=== PATIENT | female | born 1955 | race African-American/Black ===

== ENCOUNTER 2020-01-22 09:33 | Outpatient (CLI) | payer MEDICARE, SELFPAY ==
--- NOTE | ~2020-01-22 | MM_ITS ---
EXAMINATION: MM screening [facility] BI w [facility] HISTORY: Screening mammogram TECHNIQUE: Craniocaudal and mediolateral oblique 3-D tomosynthesis images were obtained and synthetic 2-D images were generated. CAD analysis was submitted and interpreted. COMPARISON: 01/19/2019, 01/12/2018, 12/26/2009 BREAST PARENCHYMAL COMPOSITION: There are scattered areas of fibroglandular density. FINDINGS: There is no evidence of suspicious mass, calcification, or architectural distortion to sugg est malignancy in either breast. There has been no suspicious interval change. IMPRESSION: 1. No mammographic evidence of malignancy. 2. Recommend routine screening mammography in one year. BI-RADS Category 1: Negative Reviewed, dictated and finalized at location A. ANALYSIS ENGINEERING TECHNICIAN
== END 2020-01-22 09:34 | disposition home or self-care (01) ==
PROVIDERS: PCP Obstetrics & Gynecology; Visit Provider Obstetrics & Gynecology
DX: Z12.31 Encounter for screening mammogram for malignant neoplasm of breast (principal)
CPT/HCPCS: 77063; 77067

== ENCOUNTER 2020-02-19 10:27 | Outpatient (CLI) | payer MEDICARE, SELFPAY ==
--- NOTE | ~2020-02-19 | CT_ITS ---
EXAMINATION:CT chest high resolution wo [place] DATE: 02/19/2020 10:54 INDICATION: Other disorders of lung. Asthma. TECHNIQUE: Computed tomography (CT) of the chest was performed without intravenous contrast. Automate d exposure control and iterative reconstruction technique were employed. The dose-length product (DLP ) was 154.00 mGy-cm. COMPARISON: CT abdomen 02/19/2013 FINDINGS: There is mild atelectasis in the inferior lungs. There is mild bronchiectasis in medial seg ment right middle lobe and laterobasal segment right lower lobe. No honeycombing. No pleural effusion . The heart size is normal. No pericardial effusion. There is a small sliding hiatal hernia. There is mild thoracic spondylosis. There is mild chronic anterior wedging of T7 vertebral body. IMPRESSION: 1. Mild bronchiectasis in the inferior lungs. 2. Small sliding hiatal hernia. Reviewed, dictated and finalized at location A. ADVISOR
== END 2020-02-19 10:28 | disposition home or self-care (01) ==
LOC: ANHIMG 10:38
PROVIDERS: Visit Provider Nurse Practitioner Family
DX: R05 Cough (principal); J98.4 Other disorders of lung; R06.02 Shortness of breath; J84.10 Pulmonary fibrosis, unspecified; Z86.19 Personal history of other infectious and parasitic diseases; K44.9 Diaphragmatic hernia without obstruction or gangrene; J47.9 Bronchiectasis, uncomplicated; J98.11 Atelectasis; M47.814 Spondylosis without myelopathy or radiculopathy, thoracic region
CPT/HCPCS: 71250

== ENCOUNTER 2020-09-25 07:51 | Outpatient (CLI) | payer MEDICARE, SELFPAY ==
--- NOTE | ~2020-09-25 | DEXA_ITS ---
Bone Density Report Name: Donald Arroyo Age: 65 Sex: Female Ethnicity: Black Date of : 1955 Indication: postmenopausal; asthma or emphysema; hysterectomy; Referring Provider: Beto Gee Study: Bone densitometry was performed. Exam Date: September 25, 2020 Accession number: [id number] Bone Density: Region BMD T-score Z-score Classification AP Spine (L1-L4) 0.987 -0.5 0.6 Normal Femoral Neck (Left) 0.707 -1.3 -0.4 Osteopenia Total Hip (Left) 0.783 -1.3 -0.5 Osteopenia Total Hip Bilateral Avg 0.777 -1.4 -0.6 Osteopenia Femoral Neck (Right) 0.650 -1.8 -0.8 Osteopenia Total Hip (Right) 0.770 -1.4 -0.6 Osteopenia World Health Organization criteria for BMD impression classify patients as: Normal (T-score at or above -1.0), Osteopenia (T-score between -1.0 and -2.5), or Osteoporosis (T-score at or below -2.5). 10-year Fracture Risk(1): Major Osteoporotic Fracture 4.2% Hip Fracture 0.6% Reported Risk Factors: [place] (Black), Neck BMD=0.650, BMI=34.3 (1) FRAX(R) Version 3.08. Fracture probability calculated for an untreated patient. Fracture probability may be lower if the patient has received treatment. Clinical Information Provided by Patient: Has used the following medications: Vitamin D Has the following medical conditions: Asthma or Emphysema, Hysterectomy Patient maximum height was 64 Menopause Age: 43 Onset of menses at age 10 Number of children 2 Impression: The patient has low bone mass, based on the Right Femoral Neck T-score. The patient has an estimated ten-year risk of hip fracture of 0.6% and an estimated ten-year risk of major fracture of 4.2%, based on the WHO FRAX algorithm. Discussion: BONE DENSITY IS LOW AT ONE OR MORE SKELETAL SITES. This patient's lowest T-score is low at one or more skeletal sites. It meets the World Health Organization's (WHO) criteria for ?low bone mass? (T-score between -1.0 and -2.5). The patient's 10-year risk of fracture as calculated by FRAX is less than the threshold where pharmacological therapy is recommended by the National Osteoporosis Foundation (NOF). However, all treatment decisions require clinical judgment and consideration of individual patient factors, including patient preferences, comorbidities, previous drug use, risk factors not captured in the FRAX model (e.g., frailty, falls, vitamin D deficiency, increased bone turnover, interval significant decline in bone density) and possible under or overestimation of fracture risk by FRAX. The patient should follow a healthful lifestyle (good nutrition with adequate calcium and vitamin D, and appropriate weight-bearing exercise). Follow-Up: Consider repeating this study in 2 to 3 years to reassess this patient's status, or sooner if there is some new clinical indication. Reported by: [facility] on 0
== END 2020-09-25 07:52 | disposition home or self-care (01) ==
LOC: ANHIMG 07:53
PROVIDERS: PCP Family Medicine; Visit Provider Obstetrics & Gynecology
DX: Z13.820 Encounter for screening for osteoporosis (principal); Z78.0 Asymptomatic menopausal state; M85.852 Other specified disorders of bone density and structure, left thigh; M85.851 Other specified disorders of bone density and structure, right thigh
CPT/HCPCS: 77080

== ENCOUNTER 2021-02-27 08:23 | Outpatient (CLI) | payer MEDICARE, SELFPAY ==
--- NOTE | ~2021-02-27 | MM_ITS ---
EXAMINATION: MM screening [facility] BI w [facility] HISTORY: Screening TECHNIQUE: Craniocaudal and mediolateral oblique 3-D tomosynthesis images were obtained and synthetic 2-D images were generated. CAD analysis was submitted and interpreted. COMPARISON: Comparison to multiple prior studies sequentially, with oldest reviewed study dated 06/2017. BREAST PARENCHYMAL COMPOSITION: There are scattered areas of fibroglandular density. FINDINGS: There is no evidence of suspicious mass, calcification, or architectural distortion to sugg est malignancy in either breast. There has been no suspicious interval change. IMPRESSION: 1. No mammographic evidence of malignancy. 2. Recommend routine screening mammography in one year. BI-RADS Category 1: Negative Reviewed, dictated and finalized at location A. TABLE ENGINEER
== END 2021-02-27 08:24 | disposition home or self-care (01) ==
LOC: ANHIMG 08:25
PROVIDERS: PCP Family Medicine; Visit Provider Obstetrics & Gynecology
DX: Z12.31 Encounter for screening mammogram for malignant neoplasm of breast (principal)
CPT/HCPCS: 77063; 77067

== ENCOUNTER 2024-10-13 00:10 | Emergency (ER) | payer MEDICARE, SELFPAY ==
--- OUTSIDE RECORDS SUMMARY | 2023-04-26 03:00 | XMS_ITS ---
Author Organization [facility] Samantha curiel Billing Info Address [address] [place] [address] Care Team Providers Care Pantomimist Name Role Phone MD MOLLY AMBROSE Primary Care Provider ALEJANDRO [place] [phone] REASON FOR VISIT [email or web address] Encounters Encounter Location Date Provider Diagnosis [id number] [address] [place], [place] [id number] 04/26/2023 ALEJANDRO HORTA Plan Of Treatment No Information Progress Notes * Donald WALSH EDOB:1955 (69 yo F)Acc No.[id number]:04/26/2023 PROGRESS NOTE Patient: Donald HARRISON Provider: Remington Horta MD :1955 A ge:68 Y S ex:Female Date:04/26/2023 C HN#:[id number] Address:[address] [place] [address], [address] Pcp:MD MOLLY AMBROSE Subjective: * Chief Complaints: * 1 . [email or web address]@[email or web address]. * Medical History: Objective: * Vitals: Assessment: Plan: * Treatment: * * This progress note has not b een verified nor is it considered complete until locked and signed by the provider. Sign off status: Pending * Provider: Remington Horta MD Date: 0 04/26/2023 Generated for Printi ng/Faxing/eTransmitting on: 0 10/13/2024 01:12 AM EDT
--- NOTE | ~2024-10-13 | XR_ITS ---
EXAM/PROCEDURE: XR chest 2V - 10/13/2024 0:30 CDT HISTORY: 69 years old Female with sob TECHNIQUE: Two view(s) of the chest. COMPARISON: None available. FINDINGS: LUNGS/ PLEURA: No focal consolidation. No appreciable pneumothorax or large pleural effusion. HEART/ MEDIASTINUM: Heart appears normal in size. BONES: No acute osseous abnormality. OTHER: Visualized upper abdomen is unremarkable. IMPRESSION: No acute process. Reviewed, dictated and finalized at location N. IMPRESSION: No acute process.
[2024-10-13 00:11] VITALS: BP 143/66; PULSE 84; RESP 18; TEMP 36.8; O2SAT 98
--- OUTSIDE RECORDS SUMMARY | 2024-10-13 00:12 | XMS_ITS | Encounter Summary ---
Author Organization [facility] Address [address] [place] [address] Care Team Providers Care Foundry Worker Name Role Phone Laurence Castillo DO Primary Care Provider [phone] Nisha Castro MD Primary Care Provider + Encounter Details Date Type Department Care Team (Late st Contact Info) Description 06/19/2024 MyChart Message Enc [facility] Mult[facility] - [place] [address] [place] [address] Laurence Castillo DO [address] [place] [address] Referrals Social History Tobacco Use Types Packs/Day Years Used Date Smoking Tobacco: Former Cigarettes 1 15 Q uit: 1996 Smokeless Tobacco: Never Comments:Former, Quit Alcohol Use Standard Drinks/Week Comments Yes 0 (1 standard drink = 0.6 oz pur e alcohol) Occasionally PHQ-2 Answer Date Recorded Patient Health Questionnaire-2 Score 0 03/03/2024 Comments No Sex and Gender Information Value Date Recorded Sex Assigned at Female 02/22/2024 11:05 AM BUDGET COUNSELOR Legal Sex Female 8:04 PM CDT Gender Identity Female 02/04/2021 10:02 AM BUDGET COUNSELOR Sexual Orientation Not on file documented as of this encounter Plan of Treatment Upcoming Encounters Date Type Department Care Team (Late st Contact Info) Description 01/09/2025 8:10 AM BUDGET COUNSELOR [facility] - [place] [address] [place] [address] Nisha Castro MD [address] [place] [address] documented as of this encounter Visit Diagnoses Not on filedocumented in this encounter Additional Health Concerns Assessment Noted Time PHQ-9 Depression Total Score: 0 03/03/19 9:05 AM BUDGET COUNSELOR documented as of this encounter Care Teams Foundry Worker Relationship Specialty Start Date End Date Laurence Castillo DO [address] [place] [address] PCP - General FAMILY PRACTICE 02/22/24 10/01/24 Nisha Castro MD [address] [place] [address] PCP - General FAMILY PRACTICE 10/02/24 documented as of this encounter
--- OUTSIDE RECORDS SUMMARY | 2024-10-13 00:12 | XMS_ITS | Encounter Summary ---
Author Organization [facility] Address [address] [place] [address] Care Team Providers Care Knot Picker Cloth Name Role Phone Laurence Castillo DO Primary Care Provider [phone] Nisha Castro MD Primary Care Provider + Encounter Details Date Type Department Care Team (Late st Contact Info) Description 04/10/2024 MyChart Message Enc [facility] Multispecialty Care - [place] [address] [place] [address] Laurence Castillo DO [address] [place], [place] [id number] Coughing Social History Tobacco Use Types Packs/Day Years [...] Sex Assigned at Female 02/22/2024 11:05 AM DEPUTY SHERIFF/INVESTIGATOR Legal Sex Female 8:04 PM CDT Gender Identity Female 02/04/2021 10:02 AM DEPUTY SHERIFF/INVESTIGATOR Sexual Orientation Not on file documented as of this encounter Plan of Treatment Upcoming Encounters Date Type Department Care Team (Late st Contact Info) Description 01/09/2025 8:10 AM DEPUTY SHERIFF/INVESTIGATOR Office Visit [facility] Family Medicine - [place] [address] [place], [place] [address] Nisha Castro MD [address] [place] [address] documented as of this encounter Visit Diagnoses Not on filedocumented in this encounter Additional Health Concerns Assessment Noted Time PHQ-9 Depression Total Score: 0 03/03/19 9:05 AM DEPUTY SHERIFF/INVESTIGATOR documented as of this encounter Care Teams Knot Picker Cloth Relationship Specialty Start Date End Date Laurence Castillo DO [address] [place] [address] PCP - General FAMILY PRACTICE 02/22/24 10/01/24 Nisha Castro MD [address] [place] [address] PCP - General FAMILY PRACTICE 10/02/24 documented as of this encounter
--- OUTSIDE RECORDS SUMMARY | 2024-10-13 00:12 | XMS_ITS | Patient Health Record ---
Author Organization [facility] Address [address] [address] Care Team Providers Care Byproducts Extractor Name Role Phone Oskar BALDERAS, Cynthia Primary Care Provider Rubén Lucio MD, [facility] [phone] Allergies No Known Allergies Reason For Referral No Information Medications Medication SIG (Take, Route, Fr equency, Duration) Notes Start Date End Date Status Lisinopril 10/28/2021 Unknown Advair HFA Unknown Omeprazole 10/28/2021 Unknown Vitamin C Unknown ZyrTEC Unknown Calcium Unknown Vitamin D3 Unknown hydroCHLOROthiazide 10/28/2021 Unknown Social History Tobacco Use: Social History Observation Description Date Details (start date - stop date) Former Smoker NA - NA Social History Drugs/Alcohol(Archived) Social Info Question Answer Notes Alcohol Screen (Audit-C) Did you have a drink containing alcohol in the past year? No Points 0 Interpretation Negative Tobacco Use: Social Info Question Answer Notes Tobacco Use/Smoking (Archived) Are you a? former smo ker How long has it been since you last smoked? > 10 years Additional Findings: Tobacco User Modera te cigarette smoker (10-19 cigs/day) Additional Findings: Tobacco Non-User Current no n-smoker Problems Problem Type SNOMED Code ICD Code Onset Dates Problem Status W/U Status Risk Notes Problem Gastroesophageal reflux disease without esophagitis (216774997) Gastroesophageal reflux disease without esophagitis (K21.9) Active confirmed Problem Dysphagia (76202801) Dysphagia, unspecified type (R13.10) Active confirmed Problem History of polyp of colon (situation) (630130458) Hx of colonic polyps (Z86.010) Active confirmed Plan Of Treatment Future Test Test Name Order Date EGD 12/23/2021 Insurance Providers Payer Name Payer Address Payer Phone Subscriber Number Group Number Insured Name Patient Relationship to Insured Coverage Start Date Coverage End Date AARP MEDICARE COMPLETE CHOICE [facility] [address] [address] [place], [place] [id number] Donald Arroyo Self - patient is the insured Medical (General) History Medical History History ICD Code bp colon polys arthristis asthma gerd Surgical History Surgery Date(Month/Year) Knee surgery 03/2017 breast biopsy foot surgery Hysterectomy
--- OUTSIDE RECORDS SUMMARY | 2024-10-13 00:12 | XMS_ITS | Clinical Summary ---
Author Organization [facility] Address [facility] [place] [address] Care Team Providers Care Automobile Drivers Name Role Phone Mary Garnica MD Primary Care Provi reshma Allergies No known active allergies Medications No known medications Active Problems Problem Noted Date Diagnosed Date Left hand pain 02/21/2021 Ganglion cyst 02/21/2021 Surgical History Surgery Date Site/Laterality Comments FOOT SURGERY KNEE ARTHROSCOPY BREAST SURGERY HYSTERECTOMY Medical History Medical History Date Comments Asthma Gastric reflux Hiatal hernia Hypercholesteremia Hypertension Osteoarthritis Rheumatoid arthritis (HCC) Peptic ulceration Social History Tobacco Use Types Packs/Day Years Used Date Smoking Tobacco: Former Cigarettes Q uit: 1995 Personal Safety Answer Date Recorded Getting School Help Needed Not on file 04/23 Comments Unknown Sex and Gender Information Value Date Recorded Sex Assigned at Not on file Legal Sex Female 3:46 PM AUTOMOBILE RACER Gender Identity Female 03/10/2021 6:25 AM AUTOMOBILE RACER Sexual Orientation Not on file Obstetrics History Last Filed Vital Signs Vital Sign Reading Time Taken Comments Blood Pressure - - Pulse - - Temperature - - Respiratory Rate - - Oxygen Saturation - - Inhaled Oxygen Concentration - - Weight 91.9 kg (202 lb 9.6 oz) 07/10/2020 10:23 AM CDT Height 162.6 cm (5' 4) 07/10/2020 10:23 AM CDT Body Mass Index 34.78 07/10/2020 10:23 AM CDT Plan of Treatment Not on file Insurance [facility] H[facility] REF [facility] HMO REF [place] [id number] Care Teams Automobile Drivers Relationship Specialty Start Date End Date Mary Garnica MD PCP - General 05/24/20
--- OUTSIDE RECORDS SUMMARY | 2024-10-13 00:12 | XMS_ITS | Clinical Summary ---
Author Organization [facility] [place] Address [address] [place] [address] Care Team Providers Care Manpower Development Specialist Manager Name Role Phone Araceli Shane MD Unavailable Marcie Pizano APRN-[facility] Primary Care Provider [phone] Source Comments [facility],non-owned Affiliates and Associated Physician Practices is amultiple site organization consisting of ambulatory clinics and hospital sitesin [place], [place], [place] and [place]. This disclosure is being madepursuant to the Care Everywhere program and may not contain all information available regarding this patient. Last updated 17.[facility] Allergies No known active allergies Medications * Be aware that medications may not be up to date on this document. Alwaysverify current medications with the patient. Cholecalciferol (VITAMIN D) 2000 UNITS CAPS capsule Take 1 (one) capsule by mouth once daily Active Calcium & Magnesium Carbonates 311-232 MG Active vitamin C (ASCORBIC ACID) 1000 MG tablet Take 1 (one) tablet by mouth once daily Active cyclobenzaprine (FLEXERIL) 10 MG tablet Take 1 tablet by mouth 3 times daily as needed for Muscle Spasms 90 tablet 0 Active Additional Information Patient not taking.Reported on 09/14/2023 Zinc 50 MG tablet Take 1 (one) tablet by mouth once daily Active albuterol HFA (PROVENTIL; VENTOLIN; PROAIR) 108 (90 Base) MCG/ACT inhaler 1 Active lisinopril-hydr oCHLOROthiazide (Prinzide; Zestoretic) 20-25 MG tablet TAKE 1 TABLET BY MOUTH ONCE DAILY 90 tablet 3 2 Active atorvastatin (Lipitor) 10 MG tablet Take 1 (one) tablet by mouth once daily Active zolpidem (Ambien) 5 MG tablet Take 1 (one) tablet by mouth once daily Active hydroxychloroqu ine (Plaquenil) 200 MG tabletIndicatio ns:Rheumatoid arthritis of multiple sites without rheumatoid factor (HCC) Take 1 (one) tablet by mouth 2 times daily 180 tablet 1 4 Active fluticasone propionate (Flonase) 50 MCG/ACT nasal spray Stewart 1 (one) spray into the nose every 24 hours as needed Active ibuprofen (Motrin) 200 MG tablet Take 1 (one) tablet by mouth every 6 hours as needed Active levocetirizine (Xyzal) 5 MG tablet Take 1 (one) tablet by mouth every 24 hours as needed Active Active Problems Problem Noted Date Diagnosed Date Peripheral vascular disease, unspecified 020 Colon polyp 08/10/2018 Impaired fasting glucose 03/17/2018 Overview (03/17/2018): Hemoglobin A1C 5.9 Body mass index (bmi) 36.0-36.9, adult 8 Esophageal stricture 02/05/2017 Neck mass 08/29/2015 Abnormal antinuclear antibody titer 12/03/2010 Overview (08/19/2011): Saw Dr. Christina 11/2007 for trace (+) [place]. Repeat was (-). Had minimal myalgias. Treated with low dose prednisone. Back pain 11/06/2010 Neck pain 03/05/2010 Overview (03/05/2010): End plate degenerative changes C3,4,5, and 6, Intervertebral disc space narrowing C5-C6. Ordering physical therapy. Esophageal reflux 04/04/2008 Overview (03/13/2013): Sees GI and is on prilosec. Had chest pain and negative thallium stress at [facility] in [place]. Essential hypertension 04/04/2008 Overview (11/08/2014): Abnormal mammogram 04/04/2008 Asthma 04/04/2008 Osteopenia 04/04/2008 Resolved Problems Problem Noted Date Diagnosed Date Resolved Date Encntr for hosiery bagger exam (general ) (routine) w/o abn findings 04/06/2019 11/27/2019 Status post foot joint surgery 03/07/2019 06/10/2021 Encounter for screening for malignant neoplasm of colon 04/26/2017 11/27/2019 Vaginal discharge 04/26/2017 11/27/2019 Urinary incontinence 04/26/2017 020 Left arm pain 03/05/2010 10/05/2017 Urinary frequency 03/05/2009 10/05/2017 Hematuria 02/28/2009 10/05/2017 Overview (02/28/2009): Dr Kirkpatrick 2007 Post-menopause on HRT (hormo ne replacement therapy) 06/28/2008 06/10/2021 FH: breast cancer 06/28/2008 10/05/2017 Arthralgia 10/26/2017 Immunizations Immunization Administration Dates Next Due qualifyor primary monoval ent 12+ yr 0.3mL Purple cap 05/17/2021 INFLUENZA VACCINE, HIGH-DOSE , QUADR. (FLUZONE HIGH-DOSE QUADRIVALENT; 65Y+), 0.7 ML (HD-IIV4) 11/05/2020,11/10/2019,12/13/2018 INFLUENZA VACCINE, QUADR. (F LUZONE; FLULAVAL; FLUARIX; AFLURIA QUADRIVALENT; 6MO+), 0.5 ML (IIV4) 10/26/2017,02/25/2017,01/13/2016 PNEUMOCOCCAL PPSV23 11/27/2019,11/09/2003,2002 Pneumococcal Pcv13 Conj 09/13/2018 TDAP (7yrs+) 08/09/2019 Zoster Hzv Vacc Recombinant Inj Im 03/03/2021, Family History Medical History Relation Name Comments Asthma Father Cancer - Renal Father Diabetes Father Hypertension Father Asthma Maternal Grandmother Arthritis - Rheumatoid Sister Lupus Sister Relation Name Status Comments Father Alive htn, DM Maternal Grandmother Mother (Age 63) blood clot Sister Social History Tobacco Use Types Packs/Day Years Used Date Smoking Tobacco: Former Cigarettes 1 12 0 04/11/1984 - 04/11/1996 Smokeless Tobacco: Never Alcohol Use Standard Drinks/Week Comments Yes 0 (1 standard drink = 0.6 oz pur e alcohol) social PHQ-2 Answer Date Recorded Patient Health Questionnaire-2 Score 0 05/16/2024 Comments No Sex and Gender Information Value Date Recorded Sex Assigned at Not on file Legal Sex Female 6:55 AM SKEIN BLEACHER Gender Identity Not on file Sexual Orientation Not on file 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 file Not on file Not on file Last Filed Vital Signs Vital Sign Reading Time Taken Comments Blood Pressure 126/82 05/16/2024 8:26 AM CDT Pulse 71 05/16/2024 8:26 AM CDT Temperature 36 C (96.8 F) 05/16/2024 8:26 AM CDT Respiratory Rate 16 05/16/2024 8:26 AM CDT Oxygen Saturation 98% 05/16/2024 8:26 AM CDT Inhaled Oxygen Concentration - - Weight 85.3 kg (188 lb) 05/16/2024 8:26 AM CDT Height 162.6 cm (5' 4) 09/14/2023 11:11 AM CDT Body Mass Index 32.27 09/14/2023 11:11 AM CDT Plan of Treatment Upcoming Encounters Date Type Department Care Team (Late st Contact Info) Description 11/14/2024 8:00 AM CDT Office Visit [facility] - Rheumatology [address], [address] [place] [address] Teodoro Finnegan DO [address] [place] [address] Health Maintenance Due Date Last Done Comments COLOGUARD (AGES 45-75) - COLON CA SCREENING 1955 CT COLONOGRAPHY - COLON CA SCREENING 1955 FIT - COLON CA SCREENING 1955 FLEX SIG - COLON CA SCREENING 1955 Respiratory Syncytial Virus (RSV) Vaccine Pt: or over 60 yrs (1 - Risk 60-74 years 1-dose series) 2013 BONE DENSITY TESTING 02/08/2022 02/09/2020 (Done Outside Per Patient), 06/16/2018, 02/10/2017, Additional history exists MEDICARE AWV CALENDAR YEAR 2024 04/06/2019 SCREENING FOR DIABETES 06/10/2024 2, 06/10/2021, 10/31/2019, Additional history exists COVID-19 VACCINE ( season) 2024 10/30/2021, 05/17/2021, 11/13/2020, Additional history exists INFLUENZA VACCINE (#1) 2024 , 11/05/2020, 11/10/2019, Additional history exists MAMMOGRAM 03/30/2026 03/30/2024, 03/12, 03/19/2023, Additional history exists COLON MONITORING 09/07/2028 09/07/2018, , 12/14/2012 COLONOSCOPY - COLON CA SCREENING 09/07/2028 09/07/2018, 09/07/2018, 12/14/2012, Additional history exists Colorectal Cancer Screening 09/07/2028 DTAP/TDAP/TD VACCINES (2 - Td or Tdap) 08/08/2029 08/09/2019 PNEUMOCOCCAL VACCINE 50+ Completed 020, 09/13/2018, 11/09/2003, Additional history exists ZOSTER VACCINE Completed 03/03/2021, 11/27/2020 HEPATITIS C SCREENING Completed 09/14/2023, 019 DEPRESSION SCREENING Completed 05/16/2024, 06/04/19 22 HEPATITIS B VACCINE Aged Out No longe r eligible based on patient's age to complete this topic HIB VACCINE Aged Out No longer eligi ble based on patient's age to complete this topic HPV VACCINE Aged Out No longer eligi ble based on patient's age to complete this topic MENINGOCOCCAL (Group B) VACCINE SHARED DECISION-MAKING Aged Out No longer eligible based on patient's age to complete this topic MENINGOCOCCAL GROUPS A/C/Y/W VACCINE Aged Out No longer eligible based on patient's age to complete this topic Goals Goal Patient Goal Type Associated Problems Recent Progress Patient-Stated? Author Blood Pressure < 140/90 Blood Pressure 126/82( 025 8:26 AM CDT) No Michelle Fuchs, ATTENDANT SALES-NURSING SCHEDULER Medical Devices Implanted Type Area Control Integration Engineer Device Identifier Shelf Expiration Date Model / Serial / Lot Screw 2.4mm 16mm P/T Lag Kendrick Slfret Implanted:Qty: 2 on 02/17/2019 by Erin Morris DPM at [facility] Right: Foot Osteomed Thiago [id number] / / Impl Fx [id number] 4.5-3mm Phalinx 0d 6 Implanted:Qty: 1 on 02/17/2019 by Erin Morris DPM at [facility] Right: Foot [employer] [id number] / / Wire Phalinx K 1.1mm Hmrtoe Fx Med Implanted:Qty: 1 on 02/17/2019 by Erin Morris DPM at [facility] Right: Foot [employer] [id number] / / Wire K Phalinx .9mm Fx Xs Sm Implanted:Qty: 1 on 02/17/2019 by Erin Morris DPM at [facility] Right: Foot Spontly [id number] / / Phalinx Extra Small Implant Implanted:Qty: 1 on 02/17/2019 by Erin Morris DPM at [facility] Right: Foot [employer] [id number] / / Explanted Type Area Control Integration Engineer Device Identifier Shelf Expiration Date Model / Serial / Lot Smooth K-Wire Osteomed Explanted:Qty: 4 on 02/17/2019 at [facility] Right: Foot [id number] / / Procedures Procedure Name Priority Date/Time Associated Diagnosis Comments HEPATITIS SCREEN ACUTE ([facility]) Routine 09/14/2023 12:11 PM CDT Rheumatoid arthritis of multiple sites without rheumatoid factor Polyarthralgia Sedimentation rate elevation CRP elevated Encounter for long-term (current) use of high-risk medication COMPREHENSIVE METABOLIC PANEL Routine 06/10/2021 11:34 AM CDT Essential hypertension Neck pain Impaired fasting glucose ENDOSCOPY, COLON, SCREENING Routine 09/07/2018 7:30 AM CDT Adenomatous polyp of colon, unspecified part of colon DEXA BONE DENSITY AXIAL SKELETON Routine 06/16/2018 9:15 AM CDT Osteopenia, unspecified location MAMMOGRAPHY ORDER Routine 01/12/2018 from Last 3 Months or Most Recently Relevant to Health Maintenance Results * HEPATITIS SCREEN ACUTE ([facility]) (09/14/2023 12:11 PM CDT) Hepatitis A Virus Antibody IgM Negative Negative [facility] INSURANCE BILL Hepatitis B Virus Surface Antigen Negative Negative [facility] INSURANCE BILL Hepatitis B Core Virus Antibody IgM Negative Negative [facility] INSURANCE BILL Hepatitis C Antibody Non Reactive Non Reactive [facility] INSURANCE BILL Comment:FASTING Blood BLOOD SPECIMEN / Unknown 09/14/2023 12:11 PM CDT 09/14/2023 Narrative Resulting Agency Comment Lab Testing performed at: [facility] [address] [id number] us Antoni Jensen MD LAB - CHEMISTRY ORDERABLES Final Result [facility] INSURANCE BILL [address] [place] [address] * (ABNORMAL) COMPREHENSIVE METABOLIC PANEL (06/10/2021 11:34 AM CDT) Glucose 95 70 - 105 mg/dL [facility] ACCOUNT BILL BUN 16 9.8 - 20.1 mg/dL [facility] ACCOUNT BILL Creatinine 0.77 0.57 - 1.11 mg/dL [facility] ACCOUNT BILL eGFR by CKD-EPI 84(L) >=90 mL/min/1.7 3 m2 [facility] ACCOUNT BILL Comment: eGFR result was calculated using the updated CKD-EPI Creatin ine Equations (2020). Prior to go live 2021 the eGFR was calculated us Sodium 142 136 - 145 mmol/L [facility] ACCOUNT BILL Potassium 3.8 3.5 - 5.1 mmol/L [facility] ACCOUNT BILL Chloride 102 98 - 107 mmol/L [facility] ACCOUNT BILL CO2 29 23 - 31 mmol/L [facility] ACCOUNT BILL Calcium 9.7 8.4 - 10.4 mg/dL [facility] ACCOUNT BILL Protein Total 8.1 6.4 - 8.3 gm/dL [facility] ACCOUNT BILL Albumin 4.8(H) 3.2 - 4.6 gm/dL [facility] ACCOUNT BILL Bilirubin Total 0.5 0.2 - 1.2 mg/dL [facility] ACCOUNT BILL Alkaline Phosphatase 87 40 - 150 U/L [facility] ACCOUNT BILL AST 24 5 - 34 U/L [facility] ACCOUNT BILL ALT 23 0 - 61 U/L [facility] ACCOUNT BILL Blood BLOOD SPECIMEN / Unknown 06/10/2021 11:34 AM CDT 06/10/2021 Narrative Resulting Agency Comment Lab Testing performed at: [address] [place] [id number] Jesica Hernández MD LAB - CHEMISTRY ORDERABLES Fin al Result [facility] ACCOUNT BILL [address] [place] [address] * ENDOSCOPY, COLON, SCREENING (09/07/2018 7:30 AM CDT) Report Endoscopy POC _ Patient Name: Preston Walsh Procedure Date: 09/07/2018 7:30 AM Date of : 1955 Admit Type: Outpatient Age: 63 Gender: Female Attending MD: Stevie Caban MD _ Procedure: Colonoscopy Indications: Screening for colorectal malignant neoplasm, High risk colon cancer surveillance: Personal history of colonic polyps, Last colonoscopy: 2012 Providers: Stevie Caban MD (Doctor) Referring MD: Jesica Hernández MD (Referring MD) Medicines: Monitored Anesthesia Care Complications: No immediate complications. Estimated blood loss: None. _ Procedure: Pre-Anesthesia Assessment: - Prior to the procedure, a History and Physical was performed, and patient medications and allergies were reviewed. The patient is competent. The risks and benefits of the procedure and the sedation options and risks were discussed with the patient. All questions were answered and informed consent was obtained. Patient identification and proposed procedure were verified by the physician, the nurse and the battery installer in the procedure room. Mental Status Examination: alert and oriented. Airway Examination: normal oropharyngeal airway and neck mobility. Respiratory Examination: clear to auscultation. CV Examination: normal. Prophylactic Antibiotics: The patient does not require prophylactic antibiotics. Prior Anticoagulants: The patient has taken no previous anticoagulant or antiplatelet agents. ASA Grade Assessment: II - A patient with mild systemic disease. After reviewing the risks and benefits, the patient was deemed in satisfactory condition to undergo the procedure. The anesthesia plan was to use monitored anesthesia care (MAC). Immediately prior to administration of medications, the patient was re-assessed for adequacy to receive sedatives. The heart rate, respiratory rate, oxygen saturations, blood pressure, adequacy of pulmonary ventilation, and response to care were monitored throughout the procedure. The physical status of the patient was re-assessed after the procedure. After I obtained informed consent, the scope was passed under direct vision. Throughout the procedure, the patient's blood pressure, pulse, and oxygen saturations were monitored continuously. The Colonoscope was introduced through the anus and advanced to the cecum, identified by appendiceal orifice and ileocecal valve. The colonoscopy was performed without difficulty. The patient tolerated the procedure well. The quality of the bowel preparation was excellent. The quality of the bowel preparation was excellent. The ileocecal valve, appendiceal orifice, and rectum were photographed. Findings: The digital rectal exam was normal. Pertinent negatives include no palpable rectal lesions. Eight flat polyps were found in the rectum, sigmoid colon and ascending colon. The polyps were 3 to 4 mm in size. These polyps were removed with a cold biopsy forceps. Resection and retrieval were complete. The descending colon, transverse colon, cecum, appendiceal orifice and ileocecal valve appeared normal. _ Impression: - Eight 3 to 4 mm polyps in the rectum, in the sigmoid colon and in the ascending colon, removed with a cold biopsy forceps. Resected and retrieved. - The descending colon, transverse colon, cecum, appendiceal orifice and ileocecal valve are normal. Recommendation: - Await pathology results. - Repeat colonoscopy in 3 years for surveillance if all polyps are adenomas; otherwise, ok for 5 years. - Return to primary care physician as previously scheduled. - Resume previous diet. - Continue present medications. - Patient has a contact number available for emergencies. The signs and symptoms of potential delayed complications were discussed with the patient. Return to normal activities tomorrow. Written discharge instructions were provided to the patient. Procedure Code(s): --- Professional --- 36167, Colonoscopy, flexible; with biopsy, single or multiple --- Technical --- 02046, Colonoscopy, flexible; with biopsy, single or multiple Diagnosis Code(s): --- Professional --- D12.2, Benign neoplasm of ascending colon D12.5, Benign neoplasm of sigmoid colon K62.1, Rectal polyp Z86.010, Personal history of colonic polyps Z12.11, Encounter for screening for malignant neoplasm of colon --- Technical --- D12.2, Benign neoplasm of ascending colon D12.5, Benign neoplasm of sigmoid colon K62.1, Rectal polyp Z86.010, Personal history of colonic polyps Z12.11, Encounter for screening for malignant neoplasm of colon CPT copyright 2017 [employer]. All rights reserved. The codes documented in this report are preliminary and upon transplant case manager review may be revised to meet current compliance requirements. Dr. Stevie Caban MD Stevie Caban MD 09/07/2018 8:20:10 AM This report has been signed electronically. Number of Addenda: 0 Note Initiated On: 09/07/2018 7:30 AM [facility] 09/07/2018 7:30 AM CDT us Stevie Caban MD GI PROCEDURE ORDERABLES Chuck brigitte Result - Final [facility] [place] [id number] * DEXA BONE DENSITY AXIAL SKELETON (06/16/2018 9:15 AM CDT) Anatomical Region Laterality Modality Mammography 06/16/2018 9:28 AM CDT Narrative 06/16/2018 9:32 AM CDT BONE MINERAL DENSITY STUDY INDICATION: Osteoporosis screening. Postmenopausal status FINDINGS: The average bone mineral density from L1 to L4 is1.117 g/cm2. The T-score is -0.5 and the Z-score is -0.6. This is a decrease of 3% since prior study 2017. The average bone mineral density of the total mean hips is 0.882 g/cm2. The T-score is -1.0 and the Z-score is -1.5. This is a decrease of 1% since prior study of 02/10/2017. ASSESSMENT: Findings consistent with osteopenia. There is a mildly increased fracture risk. WORLD HE[employer]GANIZATION DEFINITIONS OSTEOPENIA = -1 to -2.5 SD BELOW T SCORE. OSTEOPOROSIS = Less than -2.5 SD BELOW T SCORE Reading Radiologist: Marta Woodward MD on 06/16/2018 at 9:32 AM Procedure Note Marta Woodward MD - 06/16/2018 BONE MINERAL DENSITY STUDY INDICATION: Osteoporosis screening. Postmenopausal status FINDINGS: The average bone mineral density from L1 to L4 is1.117 g/cm2. The T-score is -0.5 and the Z-score is -0.6. This is a decrease of 3% since prior study 2017. The average bone mineral density of the total mean hips is 0.882 g/cm2. The T-score is -1.0 and the Z-score is -1.5. This is a decrease of 1% since prior study of 02/10/2017. ASSESSMENT: Findings consistent with osteopenia. There is a mildly increased fracture risk. WORLD HEALTH ORGANIZATION DEFINITIONS OSTEOPENIA = -1 to -2.5 SD BELOW T SCORE. OSTEOPOROSIS = Less than -2.5 SD BELOW T SCORE Reading Radiologist: Marta Woodward MD on 06/16/2018 at 9:32 AM Stevie Caban MD DEXA ORDERABLES Final Resul t * MAMMOGRAPHY ORDER (01/12/2018) Anatomical Region Laterality Modality Mammography us Provider Unknown MAMMO ORDERABLES Final Result from Last 3 Months or Most Recently Relevant to Health Maintenance Insurance [facility] [place] [address] Care Teams Manpower Development Specialist Manager Relationship Specialty Start Date End Date Marcie Pizano, ATTENDANT SALES-NURSING SCHEDULER [address] [place] [address] [place] [address] PCP - General Nurse Practitioner Family 09/01/23 Araceli Shane MD Rheumatology 01/27/19
--- OUTSIDE RECORDS SUMMARY | 2024-10-13 00:12 | XMS_ITS | Encounter Summary ---
Author Organization [facility] Address [address] [place] [address] Care Team Providers Care Assistant County Attorney Name Role Phone Laurence Castillo DO Primary Care Provider [phone] Nisha Castro MD Primary Care Provider + Encounter Details Date Type Department Care Team (Latest Contact Info) Description 09/25/2024 MyChart Message Enc [facility] Family Medicine - [place] [address] [place] [phone] Nisha Castro MD [address] [place] [phone] Prescription refills Social History Tobacco Use Types Packs/Day Years [...] Sex Assigned at Female 02/22/2024 11:05 AM ASSISTANT COUNTY ATTORNEY Legal Sex Female 8:04 PM CDT Gender Identity Female 02/04/2021 10:02 AM ASSISTANT COUNTY ATTORNEY Sexual Orientation Not on file documented as of this encounter Plan of Treatment Upcoming Encounters Date Type Department Care Team (Late st Contact Info) Description 01/09/2025 8:10 AM ASSISTANT COUNTY ATTORNEY Office Visit [facility] Family Medicine - [place] [address] [place] [address] Nisha Castro MD [address] [place] [address] documented as of this encounter Visit Diagnoses Not on filedocumented in this encounter Additional Health Concerns Assessment Noted Time PHQ-9 Depression Total Score: 0 03/03/19 9:05 AM ASSISTANT COUNTY ATTORNEY documented as of this encounter Care Teams Assistant County Attorney Relationship Specialty Start Date End Date Laurence Castillo DO [address] [place] [address] PCP - General FAMILY PRACTICE 02/22/24 10/01/24 Nisha Castro MD [address] [place] [address] PCP - General FAMILY PRACTICE 10/02/24 documented as of this encounter
--- OUTSIDE RECORDS SUMMARY | 2024-10-13 00:12 | XMS_ITS | Clinical Summary ---
Author Organization [facility] Address [address] [place] [address] Care Team Providers Care Volunteer Services Specialist Name Role Phone Unavailable Primary Care Provider Unavailabl e Social History Tobacco Use Types Packs/Day Years Used Date Smoking Tobacco: Never Assessed Comments Unknown Sex and Gender Information Value Date Recorded Sex Assigned at Not on file Legal Sex Female 10:55 AM PHARMACY INTAKE TECHNICIAN Gender Identity Not on file Sexual Orientation Not on file Plan of Treatment Health Maintenance Due Date Last Done Comments Hepatitis C Virus (HCV) Screening 1955 TdaP Immunization 1955 Cologuard 1998 Colonoscopy 1998 Colorectal Cancer Screening 1998 Immunochemical Fecal Occult Blood 1998 Pneumococcal Immunization (5 0+ years) (1 of 1 - PCV) 2003 Zoster Immunization (1 of 2) 2003 SARS-COV-2 Immunization ( - 2023- season) 2023 Influenza Immunization (#1) 10/09/20240 03/2019, 12/13/2018 Respiratory Syncytial Virus (RSV) Immunization (Adult) (1 - 1-dose 75+ series) 2028 Hepatitis B Immunization Aged Out No longer eligible based on patient's age to complete this topic Human Papillomavirus (HPV) Immunization Aged Out No longer eligible b ased on patient's age to complete this topic Meningococcal Immunization (ACWY) Aged Out No longer eligible b ased on patient's age to complete this topic Rotavirus Immunization Aged Out No lo nger eligible based on patient's age to complete this topic
--- OUTSIDE RECORDS SUMMARY | 2024-10-13 00:12 | XMS_ITS | Clinical Summary ---
Author Organization [facility] Address [address] [place] [address] Care Team Providers Care Mail Inserter Name Role Phone Nisha Castro MD Primary Care Provider + Allergies No known active allergies Medications ACETAMINOPHEN EXTRA STRENGTH 500 MG tablet 11/06/19 21 Active Cholecalciferol 50 MCG (2000 UT) Cap Take 2,000 Units by mouth daily. Active ibuprofen 200 MG tablet Take 1 tablet (200 mg total) by mouth every 6 (six) hours as needed for Pain. Active zinc sulfate 220 MG capsule Take 50 mg by mouth daily. Active levocetirizine (XYZAL) 5 MG tablet Take 1 tablet (5 mg total) by mouth daily as needed (allergies ). Active vitamin C (ASCORBIC ACID) 250 MG tablet Take 2 tablets (500 mg total) by mouth daily. Active Calcium Carb-Cholecalcife rol (CALCIUM + VITAMIN D3 OR) Take 1,200 mg by mouth daily. 1200mg calcium, 25mcg vitamin d 3 Active fluticasone propionate (FLONASE) 50 MCG/ACT nasal spray 1 spray by Nasal route daily as needed for Rhinitis. Active zolpidem (AMBIEN) 5 MG tabletIndications :Insomnia, unspecified type Take 0.5 tablets (2.5 mg total) by mouth nightly as needed for Sleep. 15 tablet 09/26/19 25 025 Active lisinopril-hydroC HLOROthiazide (ZESTORETIC) 20-12.5 MG tabletIndications :Primary hypertension Take 1 tablet by mouth daily. 90 tablet 10/18/19 25 025 Active atorvastatin (LIPITOR) 10 MG tabletIndications :Mixed hyperlipidemia Take 1 tablet (10 mg total) by mouth daily. 90 tablet 11/20/19 25 026 Active atorvastatin (LIPITOR) 10 MG tabletIndications :Mixed hyperlipidemia Take 1 tablet (10 mg total) by mouth daily. 90 tablet 1 05/23/19 25 025 Discontinued(Re order) hydrOXYzine (ATARAX) 25 MG tabletIndications :Itching Take 1 tablet (25 mg total) by mouth 3 (three) times daily as needed for Itching. 30 tablet 05/23/19 25 025 Discontinued famotidine (PEPCID) 20 MG tabletIndications :Gastroesophageal reflux disease, unspecified whether esophagitis present Take 1 tablet (20 mg total) by mouth 2 (two) times daily. 180 tablet 06/20/19 25 025 lisinopril-hydroC HLOROthiazide (ZESTORETIC) 20-12.5 MG tabletIndications :Primary hypertension Take 1 tablet by mouth daily. 90 tablet 07/19/19 25 025 Discontinued(Re order) zolpidem (AMBIEN) 5 MG tabletIndications :Insomnia, unspecified type Take 0.5 tablets (2.5 mg total) by mouth nightly as needed for Sleep. 15 tablet 07/19/19 25 025 Discontinued hydrOXYzine (ATARAX) 25 MG tabletIndications :Itching Take 1 tablet (25 mg total) by mouth every 8 (eight) hours as needed for Anxiety or Itching. 30 tablet 09/26/19 25 025 Active Problems Problem Noted Date Diagnosed Date Rash and other nonspecific skin eruption 025 Overview (07/18/2024): Images from the original note were not included. 07/18/2024: She reports she started experiencing rash after going to [facility] on June 24, 2024. She reports she started experiencing itching and redness on her chest which continued the following day. She reports she saw a telehealth provider through her insurance and was given prednisone 40 mg daily for 5 days which she took and rash and itching improved/resolved. She reports appears rash has returned and it appears to be made worse by heat/sun exposure. She reports rash is only on the thumb side of her hands and her arms and her neck and upper back. She denies rash on her legs or lower extremities. She reports that itching has been very bothersome and she has had to get up at nighttime and try to wash her arms due to the itching. She denies rash being present on her face. She denies any fever, chills or other systemic symptoms which are new. She reports last year she got a sunburn when she was living in [place] that did not heal for several months. She reports she did use leftover triamcinolone prescription which did help with itching. She reports since onset of rash, she has not been using any fragrance lotion and she has been using oatmeal soap or Ivory soap. She denies any outdoor exposure in wooded area or insect bite. Assessment & Plan (07/18/2024 3:56 PM CDT): Unknown etiology of rash. Differential diagnoses include photosensitivity secondary to medications such as hydrochlorothiazide or ibuprofen as well as potential cutaneous lupus or other photosensitivity reaction among others. She is following with rheumatology and has had multiple autoimmune labs drawn recently 05/16/2024 which were within normal limits with exception of mildly increased erythrocyte sedimentation rate at 34. Will start patient on prednisone taper 40 mg for 3 days, 30 mg for 3 days, 20 mg for 3 days, 10 mg for 3 days, 5 mg for 3 days, 2.5 mg for 3 days. Patient is to see dermatology 08/01/2024. Patient can continue hydroxyzine 25 mg tablets up to every 8 hours as needed for itching however I suspect prednisone will resolve itching and rash. Class 1 obesity with serious comorbidity and body mass index (BMI) of 32.0 to 32.9 in adult, unspecified obesity type 06/19/2024 Overview (06/19/2024): 06/19/2024: Patient has gained 5 pounds within the last month since last visit. She reports she has been eating and craving sweets. She is requesting referral to dietitian. She does not have name with her of specific dietitian. Assessment & Plan (06/19/2024 8:18 AM CDT): Discussed with patient in the setting of her weight and comorbidities, I recommend we proceed with overnight sleep study as she reports she has not had one previously. Home WatchPAT ordered. When patient goes home and finds name of specific dietitian she would like to be referred to, she can send us a message and we will place referral. Excessive daytime sleepiness 06/19/2024 Overview (06/19/2024): 06/19/2024: 06/19/2024 8:12 AM [facility] AMB EPWORTH SCORE Total score 7 Assessment & Plan (07/18/2024 3:02 PM CDT): Home WatchPAT resulted showing no evidence of sleep apnea. Assessment & Plan (06/19/2024 8:20 AM CDT): Overnight home sleep study ordered in the setting of patient's insomnia, obesity, hypertension and TMJ arthritis Colon cancer screening 06/19/2024 Overview (06/19/2024): 06/19/2024: Last colonoscopy completed with José Luis Moraes MD 06/12/2022 and 1 polyp was removed in descending colon. She reports she has been getting colonoscopies every 3 years. There is no instruction on when to return. Assessment & Plan (06/19/2024 8:21 AM CDT): Will plan for patient to have colonoscopy every 3 years so next would be in June 2025. Referral placed to GI Dr. Tolentino. Parotid swelling 05/22/2024 Assessment & Plan (05/22/2024 10:26 AM CDT): Suspected left parotid swelling on physical exam. Differential could also include potential swelling from irritation of left TMJ for which patient is known to have arthritis of left TMJ. Discussed with patient that I would like her to suck on hard candies regularly and we will continue to monitor at next appointment swelling and order further imaging if does not improve. She can also alternate heat and cold packs to help with reducing swelling and discomfort. Itching 05/22/2024 Overview (05/22/2024): 05/22/2024: She reports she is having itching at nighttime and feeling like things are crawling on her skin. She reports this is new. She denies any new changes in medication other than discontinuing hydroxychloroquine. She reports she has been taking Benadryl occasionally at nighttime in addition to her Xyzal which helps with some of the itching. She denies rash presenting with itching. Assessment & Plan (05/22/2024 10:40 AM CDT): Discussed with patient that I would like her to try hydroxyzine which is similar to Benadryl. 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 Recommend she take at nighttime however do not take Ambien at the same time. She demonstrated verbal agreement. Will continue to monitor itching. Spondylosis of lumbar spine 04/18/2024 Overview (04/18/2024): 04/18/2024: MRI lumbar spine without contrast 02/11/2021 L1-2: No significant spinal canal or neural foraminal stenosis. L2-3: Disc bulge impressing the ventral thecal sac. Mild to moderate facet hypertrophy, right greater than left. Mild spinal canal stenosis. Mild right neural foraminal stenosis. No left neural foraminal stenosis. L3-4: Disc bulge impressing the ventral thecal sac. Mild to moderate facet hypertrophy. Mild bilateral neural foraminal stenosis. L4-5: No significant spinal canal or neural foraminal stenosis. L5-S1: No significant spinal canal stenosis. Moderate facet hypertrophy. Moderate bilateral neural foraminal stenosis. Prominent epidural fat within the anterior greater than posterior thecal sac (best seen on series 7 image 7) =====IMPRESSION:===== Mild to moderate multilevel lumbar spondylosis, as described above. Controlled substance agreement signed 04/18/2024 Overview (04/18/2024): Signed 04/18/2024 Lumbosacral radiculopathy 04/18/2024 Overview (05/22/2024): 05/22/2024: She reports pain has improved and she is no longer using a cane to ambulate. Assessment & Plan (04/18/2024 12:47 PM CDT): Suspect this is related to patient's lumbar spinal pathology. No radiculopathy present in toes per patient report. Plan to treat with Medrol steroid dosepak and Flexeril muscle relaxer and will continue to monitor. If does not improve and/or worsens, we can repeat MRI imaging of the lumbar spine. Patient counseled on potential side effects and concerns regarding medication. She can continue to take Tylenol and ibuprofen. Seronegative rheumatoid arthritis ([facility]) 03/03/2024 Overview (04/18/2024): Initial visit 03/03/2024: She reports she is currently taking hydroxychloroquine 400 mg daily. She recently establish care with Antoni Jensen MD in September 2023. Per chart review, she saw rheumatology 09/14/2023 and was requested to follow-up in 3 months. 04/18/2024: She reports she has ran out of her hydroxychloroquine and has not been taking for approximately 1 week. She reports upcoming appointment with rheumatology Dr. Jensen 05/02/2024. Assessment & Plan (04/18/2024 12:38 PM CDT): Refill of hydroxychloroquine 200 mg twice daily for 30 days ordered to patient's pharmacy. Additional prescriptions to be obtained through wealth management advisor. Assessment & Plan (03/03/2024 7:34 PM PLATEMAKER): She is to continue current medication and is instructed to make follow-up appointment with wealth management advisor. She reports she is following with ophthalmology. Status post total right knee replacement 025 Overview (03/03/2024): Initial visit 03/03/2024: Reports she had surgery in June 2022 through [facility] in [place]. Depression screening negative 03/03/2024 Overview (03/03/2024): PHQ-2 Score PHQ-2 Score: 0 PHQ-9: 03/03/2024 9:05 AM 02/10/2021 9:37 AM PHQ2/PHQ 9 DEPRESSION SCREEN QUESTIONAIRE Little interest or pleasure in doing things Not at all Feeling down, depressed, or hopeless Not at all Patient Health Questionnaire-2 Score 0 Trouble falling or staying asleep, or sleeping too much Not at all Feeling tired or having little energy Not at all Poor appetite or overeating Not at all Feeling bad about yourself - or that you are a failure or have let yourself or your family down Not at all Trouble concentrating on things, such as reading the newspaper or watching television Not at all Moving or speaking so slowly that other people could have noticed? Or the opposite - being so fidgety or restless that you have been moving around a lot more than usual. Not at all Thoughts that you would be better off or hurting yourself in some way Not at all Patient Health Questionnaire-9 Score 0 LITTLE INTEREST OR PLEASURE IN DOING THINGS 0-Not at All FEELING DOWN, DEPRESSSED,OR HOPELESS 0-Not at All PHQ2 DEPRESSION TOTAL SCORE 0 DEPRESSION SCREENING TOTAL SCORE 0 IF YOU CHECKED OFF ANY PROBLEMS Not difficult at all Assessment & Plan (03/03/2024 7:12 PM PLATEMAKER): Depression screening negative. This was discussed with patient in person at appointment and she denied having any questions or concerns. Cigarette nicotine dependence in remission 03/03 Overview (03/03/2024): Initial visit 03/03/2024: She reports she smoked approximately 1 pack/day of cigarettes for approximately 20 years and stopped smoking 28 years ago. Assessment & Plan (03/03/2024 7:14 PM PLATEMAKER): She does not qualify for lung cancer screening with low-dose CT scan of lungs due to time since smoking cessation. Cold intolerance 03/03/2024 Overview (03/03/2024): Initial visit 03/03/2024: She reports she feels cold all the time and there are times that even her will touch her skin and he reports it does not feel cold but she feels cold Assessment & Plan (03/03/2024 7:25 PM PLATEMAKER): TSH ordered to evaluate thyroid function and CBC ordered to evaluate blood count. No anemia noted on CBC and TSH within normal limits. Arthritis of left temporomandibular joint 2024 Overview (06/19/2024): Initial visit 03/03/2024: CT maxillofacial without contrast on 01/28/2023 demonstrated mild left temporomandibular joint arthritis 06/19/2024: She reports she is having trouble and pain with her left jaw. She reports she previously saw ENT Dr. Miah Tompkins twice and was told that it was related to her temporomandibular joint. Assessment & Plan (06/19/2024 8:20 AM CDT): Schedule patient that she could see oral surgeon or dentist and they may make professional dental appliance for her if she is grinding her teeth at nighttime. Also, I would like patient to complete overnight home sleep study given her comorbidities. She is agreeable. Status post bilateral cataract extraction 2024 Overview (03/03/2024): Initial visit 03/03/2024: She reports she has had bilateral cataract extractions and then follow-up laser. Assessment & Plan (03/03/2024 7:19 PM PLATEMAKER): Is to continue following with ophthalmology especially in the setting of her hydroxychloroquine use. History of peptic ulcer 03/03/2024 Overview (03/03/2024): Initial visit 03/03/2024: She reports she was diagnosed via endoscopy by cylinder inspector and tester with 3 stomach ulcers and started on treatment. See under GERD. History of abnormal mammogram 03/03/2024 Overview (03/03/2024): Initial visit 03/03/2024: She reports she gets regular mammograms. She reports she has had an abnormal mammogram and right breast and left breast at separate times and had lumpectomies in both breast and follow-up mammograms were normal. Assessment & Plan (03/03/2024 7:21 PM PLATEMAKER): Need to obtain records of previous mammograms including most recent Status post total hysterectomy 03/03/2024 Overview (03/03/2024): Initial visit 03/03/2024: She reports she had total hysterectomy including removal of her ovaries when she was in her 50s. Other neutropenia 03/03/2024 Overview (03/03/2024): Initial visit 03/03/2024: Noted incidentally on CBC. Mild neutropenia. Assessment & Plan (03/21/2024 9:28 AM PLATEMAKER): Discussed mild neutropenia with patient. I would like to repeat CBC however currently patient is feeling somewhat under the weather so we will wait. She is encouraged to make appointment with rheumatology as she is to follow-up regarding hydroxychloroquine. Assessment & Plan (03/03/2024 7:28 PM PLATEMAKER): Mild neutropenia. We can repeat to confirm. Patient needs to follow-up with rheumatology as requested. Mixed hyperlipidemia 04/06/2023 Overview (05/22/2024): Initial visit 03/03/2024: Reports taking atorvastatin 10 mg daily Lipid panel 07/09/2021 Total cholesterol: 204 Triglycerides: 66 HDL cholesterol: 59 VLDL calculated: 12 LDL calculated: 133 Component Ref Range & Units 03/03/24 0936 CHOLESTEROL <200 MG/DL 147 TRIGLYCERIDES <150 MG/DL 45 HDL >40 MG/DL 70 LDL-C <100 MG/DL 68 VLDL CALCULATION 5 - 28 MG/DL 9 CHOL/HDL RATIO 0.0 - 4.0 2.1 LDL/HDL 0.41 - 2.13 1.0 NON HDL CHOLESTEROL <140 MG/DL 77 05/22/2024: She brought in prescription bottle and is asking if she needs to continue on medication. Assessment & Plan (05/22/2024 10:30 AM CDT): Lipid panel is appropriate. Discussed with patient that I recommend she continue atorvastatin 10 mg daily as it is recommended in the setting of her ASCVD risk score. She is agreeable. Refill placed to patient's pharmacy. The 10-year ASCVD risk score (Shari HUI, et al., 2019) is: 10.1% Values used to calculate the score: Age: 69 years Sex: Female Is Non- : Yes Diabetic: No Tobacco smoker: No Systolic Blood Pressure: 129 mmHg Is BP treated: Yes HDL Cholesterol: 70 MG/DL Total Cholesterol: 147 MG/DL Assessment & Plan (03/03/2024 7:13 PM PLATEMAKER): Lipid panel returned within normal limits. Patient instructed to continue current medication. Temporomandibular joint disorder 01/19/2023 Insomnia 12/03/2022 Overview (07/18/2024): Initial visit 03/03/2024: She reports she takes zolpidem 5 mg tablet nightly as needed to help sleep. 04/18/2024: She is requesting refill of Ambien 5 mg as needed for sleep. 05/22/2024: She reports she is taking Ambien as needed for sleep however not nightly. 07/18/2024: She is requesting refill of Ambien. She reports the pills are very small and difficult to cut in half. Assessment & Plan (07/18/2024 3:50 PM CDT): Home WatchPAT resulted showing no evidence of obstructive sleep apnea. Refill Ambien 2.5 mg nightly as needed. Last prescription filled April 2024. PDMP checked. Controlled substance agreement in place. Assessment & Plan (05/22/2024 10:22 AM CDT): Continue as needed Ambien. Discussed with patient today recommend her not take Ambien on nights that she takes hydroxyzine for itching. She demonstrated verbal agreement. Assessment & Plan (04/18/2024 12:37 PM CDT): Discussed with patient that we can try Ambien 2.5 mg nightly as needed for sleep as she is already taking medication intermittently. I would like her to be on lowest tolerated dose. Discussed with her that this is not a great option for using on a regular basis. PDMP checked. Last refill of Ambien 5 mg for 30 days 11/15/2023. She is agreeable to sign controlled substance agreement. Urine drug screen has been ordered. Assessment & Plan (03/03/2024 7:17 PM PLATEMAKER): She did not request refill at this visit. Medication is not recommended due to her age. Per PDMP, last refill was 11/15/2023 and medication is refilled infrequently. Peripheral vascular disease, unspecified 020 Polyp of descending colon 08/10/2018 Overview (05/22/2024): Initial visit 03/03/2024: 1 diminutive polyp noted in descending colon that was removed with cold snare during colonoscopy 06/12/2022. Also has had previous colonoscopy 09/07/2018 05/22/2024: She reports she was told to return in 3 years for repeat colonoscopy. Assessment & Plan (05/22/2024 10:26 AM CDT): Requesting colonoscopy records including pathology report from patient's last colonoscopy. Assessment & Plan (03/03/2024 7:05 PM PLATEMAKER): No pathology is available at this time so we will need to request. Esophageal stricture 02/05/2017 Osteopenia of multiple sites 04/04/2008 Overview (03/03/2024): Initial visit 03/03/2024: Patient brought in copy of previous DEXA scan from 12/08/2022 which showed osteopenia. Assessment & Plan (03/03/2024 7:04 PM PLATEMAKER): Continue current calcium and vitamin D3 supplementation at this time. Mild intermittent asthma without complication (H HS/HCC) 04/04/2008 Overview (03/03/2024): Initial visit 03/03/2024: She reports she was diagnosed with asthma years ago and has very few times when asthma gives her any trouble. She reports when she moved to [place] she lost 20 pounds reports she has not had issues since up recently within the last week or so that she thinks is related to cold weather and she had a little bit of shortness of breath and coughing. She reports she does not currently have albuterol rescue inhaler. Assessment & Plan (03/03/2024 7:15 PM PLATEMAKER): Based on patient's description, asthma is mild intermittent. Albuterol rescue inhaler refilled. Patient was counseled that cold weather likely triggered bronchoconstriction. Primary hypertension 09/27/2007 Overview (07/18/2024): Images from the original note were not included. Regimen: Lisinopril-hydrochlorothiazide 20-12.5 mg daily GFR: Greater than 90, 03/03/2024 Urine microalbumin to creatinine ratio: 6.4, 03/21/2024 Blood pressure monitoring device at home: YES, arm cuff Initial visit 03/03/2024: Patient reports taking lisinopril-hydrochlorothiazide 20-25 mg tablet daily. She reports she has had hypertension for many years and has been on current medication for many years. She reports has an arm cuff at home. Last visit with provider on 11/19/2023 showed blood pressure 122/70 03/21/2024: Continues taking lisinopril-hydrochlorothiazide 20-25 mg tablet daily. She reports she has never tried amlodipine previously. 05/22/2024: Continuing to take lisinopril-hydrochlorothiazide 20-25 mg tablet daily. 06/19/2024: She reports she has been taking lisinopril 30mg daily for at least two weeks. 07/18/2024: She reports blood pressure has been up-and-down at home she brought log in today. Log below. Assessment & Plan (07/18/2024 3:50 PM CDT): Blood pressure appropriate in office. Patient to continue to monitor blood pressure at home. Continue current blood pressure medication. Assessment & Plan (06/19/2024 8:19 AM CDT): Blood pressure appropriate in office. Continue lisinopril 30 mg daily. Assessment & Plan (05/22/2024 10:21 AM CDT): Blood pressure appropriate and at goal in office today. Upon finishing prescription for lisinopril-hydrochlorothiazide within the next 2 weeks, I would like patient to start lisinopril 30 mg once daily. Assessment & Plan (04/18/2024 12:35 PM CDT): Blood pressure appropriate and at goal in office today. Upon finishing prescription for lisinopril-hydrochlorothiazide within the next 2 weeks, I would like patient to start lisinopril 30 mg once daily. Assessment & Plan (03/21/2024 9:27 AM PLATEMAKER): Discussed with patient that in the setting of her age, generally recommendation is to decrease or discontinue hydrochlorothiazide. Patient is agreeable to change at this time however we will wait another month until she is ready/almost ready for prescription refill. If we adjust therapy, would switch to lisinopril without hydrochlorothiazide and possibly add low-dose amlodipine and monitor blood pressure. Assessment & Plan (03/03/2024 7:24 PM PLATEMAKER): Blood pressure is elevated in office today. Continue current dose of medication at this time. Patient counseled to take blood pressure measurements at home. Renal function measured via GFR and serum creatinine is within normal limits. Urine microalbumin to creatinine did not result and reported as well as unable to be calculated so we will need to repeat at the following visit. Gastroesophageal reflux disease 09/27/2007 Overview (06/19/2024): Initial visit 03/03/2024: She reports she went to gastroenterology in the past and was diagnosed with 3 stomach ulcers and started on omeprazole 20mg oral daily which she reports she has taken for years. She reports if symptoms worsened she would take two pills a day. She reports she has had upper endoscopy multiple times as in the past she had peptic ulcers. She reports currently she takes omeprazole 20mg as needed. She reports she only has taken 2-3 times in the last year. She reports she uses peppermint, jose or chamomile tea to help with reflux symptoms that she reports works better than omeprazole. 06/19/2024: She reports her reflux has been worse over the past few weeks. She reports she has been eating worse. She reports she previously saw GI Dr. Craft with [facility]. Assessment & Plan (06/19/2024 8:14 AM CDT): Counseled patient on avoiding foods that can exacerbate reflux. She can take Pepcid 20 mg up to twice daily as needed for reflux. Assessment & Plan (03/03/2024 7:09 PM PLATEMAKER): Discussed with patient the patient long-term sequelae related to long-term use of PPI medication and recommendation is to continue only as needed as she is doing currently. Resolved Problems Problem Noted Date Diagnosed Date Resolved Date Viral upper respiratory tract infection 03/21/2024 04/18/2024 Overview (03/21/2024): 03/21/2024: She reports over the last week she has been feeling off. She reports yesterday she started to have chills and bodyaches however measured temperature and did not have fever. She reports she has had COVID in the past and this symptoms do not feel similar. She denies pain with breathing or shortness of breath. She reports she has not been using her inhaler. She reports she had mild headache yesterday and took Motrin once yesterday which helped her headache. She also reports she started taking Flonase last night which provided the most improvement overnight in her congestion. She reports she was drinking hot tea. Assessment & Plan (03/21/2024 2:44 PM PLATEMAKER): Counseled patient that I suspect she has been exposed to a virus. In-house COVID and influenza testing is negative. Counseled on supportive care. At this time for the next few days, she can increase Flonase to twice daily and then decrease to once daily as needed. She can continue other supportive care such as using tea. Reactive cervical lymphadenopathy suspect related to suspected viral illness. She is counseled to frequently wash her hands and avoid touching her face and she can reinfect herself or potato picker a new viral illness. If she acutely worsens and or fails to improve, she is to return for reevaluation. High risk medication use 03/03/2024 Overview (05/22/2024): Initial visit 03/03/2024: Patient is on hydroxychloroquine 400 mg daily. She reports she saw ophthalmology and was evaluated within the last year. Rheumatology is prescribing her medication. 05/22/2024: She reports she saw a rheumatology Dr. Jensen recently and he ordered labs and told her he would refill her hydroxychloroquine if he had any concerns for her needing to continue on medication. Medication was not refilled. She is following up again with rheumatology in November 2024. Encounter for screening mamm ogram for malignant neoplasm of breast 03/03/2024 04/17/2024 Overview (03/03/2024): Initial visit 03/03/2024: She reports she obtains routine mammograms and has upcoming mammogram scheduled in June 2024. Acute sinusitis 01/05/2023 03/03/2024 Ganglion cyst 02/21/2021 03/03/2024 Left hand pain 02/21/2021 03/03/2024 Impaired fasting glucose 03/17/2018 Overview (03/03/2024): Hemoglobin A1C 5.9 Neck mass 08/29/2015 03/03/2024 Abnormal antinuclear antibody titer 12/03/2010 03/03/2024 Overview (03/03/2024): Saw Dr. Christina 11/2007 for trace (+) PRESTON. Repeat was (-). Had minimal myalgias. Treated with low dose prednisone. Backache 11/06/2010 03/03/2024 Neck pain 03/05/2010 03/03/2024 Overview (03/03/2024): End plate degenerative changes C3,4,5, and 6, Intervertebral disc space narrowing C5-C6. Ordering physical therapy. Abnormal mammogram 04/04/2008 Encounters Date Type Department Care Team Description 09/25/2024 EyeSee360hart Message Enc [facility] Family Medicine - [place] [address] [place] [address] Nisha Castro MD Prescription refills 09/25/2024 Telephone [facility] [address] [place] [address] Laurence Castillo, DO Refill Request 08/18/2024 Scan [facility] INFO SRVCS Scanned, [facility] 08/16/2024 10:10 AM CDT - 08/16/2024 11:59 PM CDT Hospital Encounter [facility] Bldg Diagnostic Imaging [address] [place] [address] [place] MD Discharge Disposition: Home or Self Care (Routine Discharge) 08/16/2024 Travel 08/01/2024 Scan [facility] HEALTH INFO SRVCS Scanned, [facility] 07/20/2024 Telephone [facility] [address] [place] [address] Laurence Castillo DO Information 07/18/2024 3:00 PM CDT Office Visit [place] [address] [place] [address] Laurence Castillo, Hypertension (Follow up for BP /Pt states it has been up and down. /Pt has a log) 07/18/2024 Scan [facility] HEALTH INFO SRVCS Scanned, [facility] 07/18/2024 Travel 07/17/2024 Results Follow-Up [place] [address] [place] [address] Laurence Castillo, DO Home Sleep Study - WatchDct (73660/G0400) from Last 3 Months Immunizations Immunization Administration Dates Next Due FLUAD (IIV, Trivalent, 0.5 M L Pre-filled Syringe) 10/18/2023 Fluad influenza vaccine, Kendall drivalent (aIIV4), Inactivated, adjuvanted, preservative free, 0.5 mL,IM use 11/12/2021 Fluzone High Dose (IIV, triv alent, 0.5mL) 12/13/2018 Fluzone High Dose - >Age 65 (Prefilled Syringe) 11/17/2022,11/05/2020,11/10/2019,2018 Influenza Adult (Generic) 10/26/2017,02/25/2017, 01/13/2016 PFIZER COVID-19 (ORIGINAL FORMULATION, PURPLE CAP) mRNA, LNP-S, PF, 30 MCG/0.3 ML DOSE 04/13/2020,03/21/2020 Pneumococcal (Pneumovax 23) 11/27/2019, 4,11/08/2002 Pneumococcal (Prevnar 13) 09/13/2018 Shingrix 03/03/2021,11/27/2020 Tdap (Generic) 08/09/2019 Family History Medical History Relation Comments No Known Problems Brother Asthma Daughter 1 No Known Problems Daughter 2 Asthma Father Hypertension Father Kidney Cancer Father Stomach cancer Maternal Aunt Heart Disease Maternal Grandfather Asthma Maternal Grandmother Stomach cancer Maternal Grandmother Emphysema Maternal Uncle Pulmonary embolism Mother f rom PE No Known Problems Paternal Grandfather No Known Problems Paternal Grandmother Heart Disease Sister 1 Hypertension Sister 1 Rheumatoid Arthritis Sister 1 Anemia Sister 2 Osteoarthritis Sister 2 Relation Status Comments Brother Alive Daughter 1 Alive Daughter 2 Alive Father Maternal Aunt Maternal Grandfather Maternal Grandmother Maternal Uncle Mother Paternal Grandfather Paternal Grandmother Sister 1 Alive Sister 2 Alive Social History Tobacco Use Types Packs/Day Years Used Date Smoking Tobacco: Former Cigarettes 1 15 Q uit: 1996 Smokeless Tobacco: Never Tobacco Cessation:Counseling Given: No Comments:Former, Quit Alcohol Use Standard Drinks/Week Comments Yes 0 (1 standard drink = 0.6 oz pur e alcohol) Occasionally PHQ-2 Answer Date Recorded Patient Health Questionnaire-2 Score 0 03/03/2024 Comments No Sex and Gender Information Value Date Recorded Sex Assigned at Female 02/22/2024 11:05 AM PLATEMAKER Legal Sex Female 8:04 PM CDT Gender Identity Female 02/04/2021 10:02 AM PLATEMAKER Sexual Orientation Not on file Last Filed Vital Signs Vital Sign Reading Time Taken Comments Blood Pressure 137/85 07/18/2024 2:56 PM CDT Pulse 72 07/18/2024 2:56 PM CDT Temperature 36.1 C (97 F) 07/18/2024 2:56 PM CDT Respiratory Rate 16 07/18/2024 2:56 PM CDT Oxygen Saturation 95% 07/18/2024 2:56 PM CDT Inhaled Oxygen Concentration - - Weight 86.6 kg (191 lb) 07/18/2024 2:56 PM CDT Height 162.6 cm (5' 4) 07/18/2024 2:56 PM CDT Body Mass Index 32.79 07/18/2024 2:56 PM CDT Plan of Treatment Upcoming Encounters Date Type Department Care Team (Late st Contact Info) Description 01/09/2025 8:10 AM PLATEMAKER Office Visit [facility] Family Medicine - [place] [address] [place] [id number] Nisha Castro MD [address] [place], [place] [id number] Health Maintenance Due Date Last Done Comments Colorectal Cancer Screening Colonoscopy (10 Years) 1955 COVID-19 Vaccine (8 - Pfizer risk 2023- season) 2024 10/18/2023, 11/17/2022, 10/30/2021, Additional history exists Dexa Scan (General) 12/08/2024 12/08/2022, 06/16/2018, 06/16/2018, Additional history exists RSV Immunization or 60+ Years (1 - Risk 60-74 years 1-dose series) 03/21/2025 Postponed fro m 2013 (Going to Outside Clinic) Annual Medicare Wellness Visit 04/05/2025 Postponed from 2018 (Future Appointment) Mammogram Screening 03/30/2026 03/30/2024, 01/11/2017, 04/05/2015, Additional history exists DTaP, Tdap and Td Vaccines (2 - Td or Tdap) 08/08/2029 08/09/2019 Pneumococcal Vaccine: 50+ Years Completed 11/27/2019, 09/13/2018, 11/09/2003, Additional history exists Zoster Vaccines Completed 03/03/2021, 11/27/2020 Hepatitis C Addressed 09/14/2023 (Prev iously completed) Overridden with the intention of not completing the topic PHQ-2 (Physician [place]) Completed 03/03/2024 Meningococcal B Vaccine Aged Out No l onger eligible based on patient's age to complete this topic Meningococcal Vaccine Aged Out No james jesus eligible based on patient's age to complete this topic RSV Immunizations Under 20 Months Aged Out No longer eligible based on patient's age to complete this topic Procedures Procedure Name Priority Date/Time Associated Diagnosis Comments XR KNEE RT 3V Routine 08/16/2024 10:45 AM CDT Pain in right knee XR KNEE LT 3V Routine 08/16/2024 10:45 AM CDT Pain in left knee MG SCREENING W MICHELLE MARSHALL DIGI Routine 03/30/2024 9:13 AM PLATEMAKER Screening mammogram for breast cancer BONE DENSITY GENERIC (SCAN ORDER) 12/08/2022 from Last 3 Months or Most Recently Relevant to Health Maintenance Results * XR KNEE RT 3V (08/16/2024 10:45 AM CDT) Anatomical Region Laterality Modality Knee Radiographic Kerrie ging 08/16/2024 5:02 PM CDT Impressions 08/16/2024 5:04 PM CDT IMPRESSION: 1. Interval total right knee arthroplasty with no acute hardware or osseous abnormality Referred By: Interpreted By: Charly Woo MD, 08/16/2024 5:02 PM Narrative 08/16/2024 5:04 PM CDT [facility] [place] [address] Examination: Right knee 3 views Exam Date/Time: 08/16/2024 10:27 AM Reason For Exam: Chronic bilateral knee pain. No known trauma. Right knee replacement 2 years ago Comparison: Right knee radiographs 01/09/2021 Technique: 3 views of the right knee were obtained. Findings: Interval total right knee replacement. No periprosthetic lucency. Hardware is intact. Posterior fabella. No knee joint effusion. No acute fracture or dislocation. No destructive osseous lesions. No unexpected radiopaque foreign bodies. Procedure Note Charly Woo MD - 08/16/2024 [place] [id number] Examination: Right knee 3 views Exam Date/Time: 08/16/2024 10:27 AM Reason For Exam: Chronic bilateral knee pain. No known trauma. Rightknee replacement 2 years ago Comparison: Right knee radiographs 01/09/2021 Technique: 3 views of the right knee were obtained. Findings: Interval total right knee replacement. No periprostheticlucency. Hardware is intact. Posterior fabella. No knee joint effusion.No acute fracture or dislocation. No destructive osseous lesions. Nounexpected radiopaque foreign bodies. IMPRESSION: 1. Interval total right knee arthroplasty with no acute hardware orosseous abnormality Referred By: Interpreted By: Charly Woo MD, 08/16/2024 5:[address] [place] MD GENERAL IMAGING Final Result * XR KNEE LT 3V (08/16/2024 10:45 AM CDT) Anatomical Region Laterality Modality Knee Radiographic Kerrie ging 08/16/2024 5:22 PM CDT Impressions 08/16/2024 5:23 PM CDT IMPRESSION: Mild progression of degenerative changes. Ordered By: COURT VALENCIA Interpreted By: Leland Calloway MD, 08/16/2024 5:22 PM Narrative 08/16/2024 5:23 PM CDT [facility] [place] [address] Examination: XR KNEE LT 3V Exam time: 08/16/2024 10:27 AM Clinical history: Bilateral knee pain. Comparison: Prior studies performed January 2021. Technique: 3 views. Findings: There are degenerative changes of mild degree in the medial compartment and the anterior joint. Mild progression of degenerative changes. There is chronic enthesopathy of the superior pole of the patella. No acute bony abnormalities. There is no joint effusion. Procedure Note Leland Calloway MD - 08/16/2024 [facility] [place] [address] Examination: XR KNEE LT 3V Exam time: 08/16/2024 10:27 AM Clinical history: Bilateral knee pain. Comparison: Prior studies performed January 2021. Technique: 3 views. Findings: There are degenerative changes of mild degree in the medialcompartment and the anterior joint. Mild progression of degenerativechanges. There is chronic enthesopathy of the superior pole of thepatella. No acute bony abnormalities. There is no joint effusion. IMPRESSION: Mild progression of degenerative changes. Ordered By: COURT VALENCIA Interpreted By: Leland Calloway MD, 08/16/2024 5:[address] [place] MD GENERAL IMAGING Final Result * MG SCREENING W MICHELLE MARSHALL DIGI (03/30/2024 9:13 AM PLATEMAKER) Anatomical Region Laterality Modality Breast Bilateral Mammography 04/04/2024 11:5 5 AM PLATEMAKER Impressions 04/04/2024 11:57 AM PLATEMAKER IMPRESSION: No significant interval change. No mammographic evidence of malignancy. RECOMMENDATION: Routine ScreeningBilateral OVERALL IMAGING ASSESSMENT: ACR BI-RADS 2 - BENIGN FINDING(S). Ordered By: LAURENCE CASTILLO Interpreted By: Mich Becker, 04/04/2024 11:55 AM Narrative 04/04/2024 11:57 AM PLATEMAKER [facility] [address] [place] [id number] EXAMINATION: MG SCREENING W MICHELLE MARSHALL DIGI INDICATIONS: Screening TECHNIQUE: Digital full field CC and MLO screening mammography bilaterally to include 3-D Tomosynthesis technique. This study was read with the assistance of a computer-aided detection system. HISTORY: No reported breast complaint. Prior excisional breast biopsies bilaterally. No documented personal or first degree family history of breast cancer. COMPARISON: 02/27/2021, 01/22/2020, and 01/19/2019. TISSUE DENSITY: There are scattered areas of fibroglandular density. FINDINGS: Few scattered typically benign round and vascular calcifications. No suspicious microcalcification or mass. No developing asymmetry or architectural distortion. No axillary adenopathy. Laurence Castillo DO MAMMO Final Result * BONE DENSITY GENERIC (SCAN ORDER) (12/08/2022) Anatomical Region Laterality Modality Other 12/08/2022 us [facility] Scanned SCANNING Final Resu lt from Last 3 Months or Most Recently Relevant to Health Maintenance Insurance [facility] Care Teams Mail Inserter Relationship Specialty Start Date End Date Nisha Castro MD [address] [place] [address] PCP - General FAMILY PRACTICE 10/02/24
--- OUTSIDE RECORDS SUMMARY | 2024-10-13 00:12 | XMS_ITS | Encounter Summary ---
Author Organization [facility] Address [address] [place] [address] Care Team Providers Care Gold Buyer Name Role Phone Laurence Castillo DO Primary Care Provider [phone] Nisha Castro MD Primary Care Provider + Encounter Details Date Type Department Care Team (Late st Contact Info) Description 04/06/2024 MyChart Message Enc [facility] Multispecialty Care - [place] [address] [place] [address] Laurence Castillo DO [address] [place] [address] Referral Social History Tobacco Use Types Packs/Day Years [...] Sex Assigned at Female 02/22/2024 11:05 AM ORNAMENT SETTER Legal Sex Female 8:04 PM CDT Gender Identity Female 02/04/2021 10:02 AM ORNAMENT SETTER Sexual Orientation Not on file documented as of this encounter Plan of Treatment Upcoming Encounters Date Type Department Care Team (Late st Contact Info) Description 01/09/2025 8:10 AM ORNAMENT SETTER Office Visit [facility] Family Medicine - [place] [address] [place] [address] Nisha Castro MD [address] [place] [address] documented as of this encounter Visit Diagnoses Not on filedocumented in this encounter Additional Health Concerns Assessment Noted Time PHQ-9 Depression Total Score: 0 03/03/19 9:05 AM ORNAMENT SETTER documented as of this encounter Care Teams Gold Buyer Relationship Specialty Start Date End Date Laurence Castillo DO [address] [place] [address] PCP - General FAMILY PRACTICE 02/22/24 10/01/24 Nisha Castro MD [address] [place] [address] PCP - General FAMILY PRACTICE 10/02/24 documented as of this encounter
--- OUTSIDE RECORDS SUMMARY | 2024-10-13 00:12 | XMS_ITS | Patient Health Record ---
Author Organization [facility] Samantha curiel Billing Info Address [address] [place], [place] [address] Care Team Providers Care Labor Economics Teacher Name Role Phone MD MOLLY AMBROSE Primary Care Provider ALEJANDRO Richmond Unavailable [phone] Allergies No Known Allergies Reason For Referral No Information Medications Medication SIG (Take, Route, Frequency, Duration) Notes Start Date End Date Status Famotidine 40 MG 1 tab(s) Orally 20 min before breakfast for 30 days 09/30/2022 Active Vitamin D Active Omeprazole 40 mg Not-Takin g Omeprazole 40 MG 1 capsule 20 minutes before breakfast Orally As directed for 30 day(s) 03/31/2022 Active Clenpiq 10-3.5-12 MG-GM -GM/160ML 160 mL Orally As directed for 1 day 03/31/2022 Not-Taking Omeprazole 40 MG 1 cap(s) Orally 20 min before breakfast for 30 day(s) 09/30/2022 Active Lisinopril Active Diclofenac Active Hydrochlorothiazide Active Social History Tobacco Use: Social History Observation Description Date Details (start date - stop date) Never Smoker NA - NA Tobacco Status: Question Answer Notes Patient is a never smoker Plan Of Treatment No Information Insurance Providers Payer Name Payer Address Payer Phone Subscriber Number Group Number Insured Name Patient Relationship to Insured Coverage Start Date Coverage End Date [employer] MEDICARE ADVANTAGE PPO [address] [address] [place], [place] [id number] Donald Arroyo Self - patient is the insured Medical (General) History Medical History History ICD Code Hypertension Hyperlipidemia Surgical History Surgery Date(Month/Year) knee replacement R breast biopsy knee arthroscopy foot surgery hysterectomy
--- NOTE | 2024-10-13 00:16 | ECG_ITS ---
Test Date: 2024-10-13 00:19:27 Measurements Intervals [place] Rate: 75 P: 55 NE: 213 QRS: 35 QRSD: 99 T: 54 QT: 376 QTc: 421 Interpretive Statements SINUS RHYTHM WITH FIRST DEGREE AV BLOCK POSSIBLE LEFT ATRIAL ENLARGEMENT [-0.1mV P-WAVE IN V1/V2] No previous ECG available for comparison Electronically Signed On 10-13-2024 12:34:18 CDT by Genaro Owen M.D.
[2024-10-13 00:35] LABS: Hematocrit 36.0 % (37.0-47.0); Hemoglobin 11.3 g/dL (12.0-15.0); Immature Granulocyte Percent A 0.2 % (0-0.5); Lymphocytes Absolute Auto 2.44 K/mm3 (0.9-3.2); Mean Corpuscular HGB Conc 31.4 g/dl (32-36); Mean Corpuscular Hemoglobin 28.9 pg (26-34); Mean Corpuscular Volume 92.1 fl (80-100); Nucleated Red Blood Cells Absolute Auto 0.000 K/mm3 (0.0-0.012); Nucleated Red Blood Cells Perc 0.0 % (0.0-0.2); Platelet Count Result 175 k/mm3 (150-375); Red Blood Count 3.91 M/mm3 (4.2-5.4); White Blood Count 5.4 K/mm3 (4.5-10.0)
[2024-10-13 01:10] LABS: Influenza A QL RT-PCR Negative (Negative); Influenza B QL RT-PCR Negative (Negative); RSV RNA, RT-PCR Negative (Negative); SARS-CoV-2 RNA PCR Negative (Negative)
[2024-10-13 01:34] LABS: Alanine Aminotransferase 24 U/L (6-35); Albumin Level 3.9 g/dL (3.5-5.1); Alkaline Phosphatase 90 U/L (38-126); Anion Gap 5 mmol/L (4-12); Aspartate Amino Transferase 31 U/L (14-36); Bilirubin,Total 0.4 mg/dL (0.2-1.3); Blood Urea Nitrogen 22 mg/dL (7-17); Calcium 8.9 mg/dL (8.4-10.2); Carbon Dioxide 29 mmol/L (22-30); Chloride 104 mmol/L (98-107); Estimated CRCL calculation 55 ml/min; Estimated Glomerular Filt Rate > 60; Glucose 126 mg/dL (65-110); Magnesium 2.1 mg/dL (1.6-2.3); Potassium 3.5 mmol/L (3.4-5.0); Sodium 138 mmol/L (137-145); Total Protein 7.0 g/dL (6.3-8.2)
[2024-10-13 02:45] VITALS: BP 161/80; PULSE 60; PULSE 62; RESP 17; O2SAT 98
--- OUTSIDE RECORDS SUMMARY | 2024-10-13 02:46 | XMS_ITS | Clinical Summary ---
Author Organization [facility] Address [address] [place] [address] Care Team Providers Care Commercial Fisherman Name Role Phone Araceli Shane MD Unavailable Marcie Pizano APRN-[facility] Primary Care Provider [phone] Source Comments [facility],non-owned Affiliates and Associated Physician Practices is amultiple site organization consisting of ambulatory clinics and hospital sitesin [place], [place], [place] and [place]. This disclosure is being madepursuant to the Care Everywhere program and may not contain all information available regarding this patient. Last updated 17.[facility] Allergies No known active allergies Medications * [...] fluticasone propionate (Flonase) 50 MCG/ACT nasal spray Hallett 1 (one) spray into the nose every [...] chest pain and negative thallium stress at [facility] in [place]. 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 Gender Identity Not on file Sexual Orientation [...] Description 11/14/2024 8:00 AM CDT Office Visit [facility] - Rheumatology [address] [place] [address] Teodoro Finnegan DO [address] [place] [address] Health Maintenance Due Date Last [...] 025 8:26 AM CDT) No Michelle Fuchs, PERSONAL FINANCIAL REPRESENTATIVE-HOP TRAINER Medical Devices Implanted Type Area Apprentice Stylist Device Identifier Shelf Expiration Date Model / Serial / Lot Screw 2.4mm 16mm P/T Lag Kendrick Slfret Implanted:Qty: 2 on 02/17/2019 by Erin Morris DPM at [facility] Right: Foot Osteomed Thiago [id number] / / Impl Fx [id number] 4.5-3mm Phalinx 0d 6 Implanted:Qty: 1 on 02/17/2019 by Erin Morris DPM at [facility] Right: Foot deeplocal [id number] / / Wire Phalinx K 1.1mm Hmrtoe Fx Med Implanted:Qty: 1 on 02/17/2019 by Erin Morris DPM at [facility] Right: Foot deeplocal [id number] / / Wire K Phalinx .9mm Fx Xs Sm Implanted:Qty: 1 on 02/17/2019 by Erin Morris DPM at [facility] Right: Foot invendo medical [id number] / / Phalinx Extra Small Implant Implanted:Qty: 1 on 02/17/2019 by Erin Morris DPM at [facility] Right: Foot [employer] [id number] / / Explanted Type Area Apprentice Stylist Device Identifier Shelf Expiration Date Model / Serial / Lot Smooth K-Wire Osteomed Explanted:Qty: 4 on 02/17/2019 at [facility] Right: Foot [id number] / / Procedures Procedure Name Priority Date/Time [...] Resulting Agency Comment Lab Testing performed at: [facility] [address] [id number] [place] Antoni Jensen MD LAB - CHEMISTRY ORDERABLES Final Result [facility] INSURANCE BILL [address] [place] [address] * (ABNORMAL) COMPREHENSIVE METABOLIC PANEL (06/10/2021 11:34 [...] Resulting Agency Comment Lab Testing performed at: [address] [place] [id number] Jesica Hernández MD LAB - CHEMISTRY ORDERABLES Fin al Result [facility] ACCOUNT BILL [address] [place] [address] * ENDOSCOPY, COLON, SCREENING (09/07/2018 7:30 AM [...] by the physician, the nurse and the manager of project management in the procedure room. Mental Status Examination: [...] the patient. Procedure Code(s): --- Professional --- 52341, Colonoscopy, flexible; with biopsy, single or multiple --- Technical --- 07647, Colonoscopy, flexible; with biopsy, single or multiple [...] malignant neoplasm of colon CPT copyright 2017 [employer]. All rights reserved. The codes documented in this report are preliminary and upon track greaser review may be revised to meet current compliance requirements. Dr. Stevie Caban MD Stevie Caban MD 09/07/2018 8:20:10 AM This report has been signed electronically. Number of Addenda: 0 Note Initiated On: 09/07/2018 7:30 AM [facility] ENDOSCOPY 09/07/2018 7:30 AM CDT us Stevie Caban MD GI PROCEDURE ORDERABLES Chuck brigitte Result - Final [facility] ENDOSCOPY [place] [id number] * DEXA BONE DENSITY AXIAL SKELETON (06/16/2018 [...] Most Recently Relevant to Health Maintenance Insurance [facility] MANAGED MEDICARE ADV Care Teams Commercial Fisherman Relationship Specialty Start Date End Date Marcie Pizano, PERSONAL FINANCIAL REPRESENTATIVE-HOP TRAINER [address] [place] [address] [place] [address] PCP - General Nurse Practitioner Family 09/01/23 Araceli Shane MD Rheumatology 01/27/19
--- OUTSIDE RECORDS SUMMARY | 2024-10-13 02:46 | XMS_ITS | Clinical Summary ---
Author Organization [facility] Address [facility] [place] [address] Care Team Providers Care Sewing Machine Repairer Helper Name Role Phone Mary Garnica MD Primary [...] on file Legal Sex Female 3:46 PM WINE STEWARD/STEWARDESS Gender Identity Female 03/10/2021 6:25 AM WINE STEWARD/STEWARDESS Sexual Orientation Not on file Obstetrics History [...] Plan of Treatment Not on file [facility] HMO REF [place] [id number] Care Teams Sewing Machine Repairer Helper Relationship Specialty Start Date End Date Mary Garnica MD PCP - General 05/24/20
--- OUTSIDE RECORDS SUMMARY | 2024-10-13 02:46 | XMS_ITS | Clinical Summary ---
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
[2024-10-13] MEDS: ALBUTEROL SULFATE NEB 2.5 MG/3 ML INH 10 MG INHALATION (02:54)
[2024-10-13] MEDS: IPRATROPIUM BR 0.02% INH SOLN 0.5 MG/2.5 ML VIAL 2 MG INHALATION (02:55)
[2024-10-13 02:59] VITALS: PULSE 60; RESP 18
--- NOTE | 2024-10-13 03:13 | ED_ITS ---
HPI - General Adult General Chief complaint: Shortness of Breath/Dyspnea Stated complaint: SOB, chest tightness Time Seen by Provider: 10/13/24 02:24 History of Present Illness HPI narrative: Patient is a 69-year-old female who presents the emergency department this evening complaining of shortness of breath. Patient states that she has had on and off for the past few weeks but today she noticed that it has gotten worse. Admits that she does have a history of asthma and did use her home inhaler with minimal to no relief. Denies any active chest pain, just feels as though her chest is tight from her asthma. Denies any recent illness, fevers or chills. Related Data Home Medications ?Medication ?Instructions ?Recorded ?Confirmed ?Last Taken ?Type ascorbate calcium (vitamin C) 500 500 mg PO DAILY 05/1008/18/24 Unknown History mg tablet cholecalciferol (vitamin D3) 25 25 mcg PO DAILY 08/18/24 Unknown History mcg (1,000 unit) capsule zinc acetate 50 mg (zinc) capsule 50 mg PO DAILY 05/2808/18/24 Unknown History (Galzin) atorvastatin 10 mg tablet 10 mg PO DAILY 09/20/2308/08 Unknown History calcium carbonate 500 mg PO DAILY 05/24/2401/02 Unknown History lisinopril 30 mg tablet 30 mg PO DAILY 05/24/2408/08 Unknown History zolpidem 5 mg tablet (Ambien) 5 mg PO QHS PRN 05/24/24 08/18/24 Unknown History famotidine 20 mg tablet (Pepcid) 20 mg PO BID 08/18/24 08/18/24 Unknown History Allergies Allergy/AdvReac Type Severity Reaction Status Date / Time tramadol Allergy Unknown itching Verified 08/18/24 08:55 Review of Systems 2 Review of Systems: All systems are reviewed and are negative unless stated otherwise in the HPI. [facility] Past Medical History Medical History Esophageal stricture Abdominal pain History of colon polyps History of stomach ulcers Osteoporosis Arthritis Chronic GERD High cholesterol Vertigo Injury of left shoulder Left shoulder pain Colon polyps PUD (peptic ulcer disease) Hematuria Hypertension GERD (gastroesophageal reflux disease) Asthma Surgical History Surgical History History of breast biopsy History of surgical removal of meniscus of knee Not sure what knee History of foot surgery History of total hysterectomy 04/1999 History of dilation and curettage History of tubal ligation Family History Family History Grandparent Family history of malignant neoplasm of stomach Heart problem Asthma Father Malignant neoplasm of prostate Family history of malignant neoplasm of kidney Hypertension Sibling Asthma Family history of rheumatoid arthritis Thyroid disorder Heart problem Hypertension Mother Heart problem Thyroid disorder Other Family history of emphysema Social History Social History Smoking packs per day: 1 Smoking cigarettes per day: 20.0 Years smoked: 12 Smoking pack-years: 12.00 Smoking status: Former smoker Tobacco type: cigarettes Smoking end date: 02/09/96 Alcohol intake: current Substance use: never Living arrangements: with family Occupation/Education: retired Gender identity (if verbalized by the patient): Female Exam 2 Narrative: General: Alert, awake, afebrile, in no acute distress. HEENT: PERRL, no rhinorrhea, no post nasal drip, oropharynx clear. Neck: Trachea midline, no JVD, no lymphadenopathy. Cardiovascular: Regular rate and rhythm, no murmurs, rubs or gallops, no peripheral edema. Respiratory: Diffuse bilateral expiratory and inspiratory wheezing, tachypnea, mild respiratory distress. Abdomen: Soft, nontender, nondistended, no rebound, no guarding, no peritoneal signs. Musculoskeletal: No joint swelling or deformity, normal muscle tone. Skin: No rashes or petechia, no signs of infection. Psychiatric: Alert and oriented, normal behavior and judgment for situation. Neurological: Alert and oriented to person, place, and time. Follows all commands. No focal deficits, speech is clear and fluent. Course Vital Signs Vital signs: Vital Signs Temperature 98.2 F 10/13/24 00:11 Pulse Rate 84 10/13/24 00:11 Respiratory Rate 18 10/13/24 00:11 Blood Pressure 143/66 H 10/13/24 00:11 Pulse Oximetry 98 10/13/24 00:11 Oxygen Delivery Room Air 10/13/24 00:11 Temperature 98.2 F 10/13/24 00:11 Pulse Rate 60 10/13/24 02:59 Respiratory Rate 18 10/13/24 02:59 Blood Pressure 161/80 H 10/13/24 02:45 Pulse Oximetry 98 10/13/24 02:45 Oxygen Delivery Room Air 10/13/24 02:45 Medical Decision Making MDM Narrative Medical decision making narrative: The patient was evaluated by myself in the emergency department. History is obtained from patient who is an independent historian and physical exam was performed. External medical records were reviewed at this time. IV was established and pertinent tests were ordered. Patient was administered an hour long DuoNeb breathing treatment and 125 mg of IV Solu-Medrol. EKG was obtained which revealed sinus rhythm rate of 75 beats per minute, no evidence of acute ischemia. EKG was independently interpreted by me and is currently pending official cardiology read. Laboratory results obtained revealing no acute process. Viral swab negative for COVID/influenza/RSV. Imaging studies obtained included CXR which was independently interpreted by me revealing no acute process, which is pending final radiology interpretation. Differential diagnosis considerations include asthma exacerbation, infectious process such as pneumonia, dehydration, electrolyte derangements, acute viral syndrome. Comorbidities impacting this visit include history of asthma. I have evaluated and discussed social determinants of health with the patient that could potentially impact subsequent diagnosis and treatment plans. On repeat assessment of the patient, reevaluation revealed that the patient is doing well and is in no acute distress. Patient symptoms have improved since she arrived to our emergency department. Patient states that she feels significantly better and on repeat auscultation there is significant improvement of her bilateral wheezing and improvement of her air movement Repeat vital signs were all reviewed and noted to be stable. Differential diagnosis and treatment plan were discussed with the patient at bedside. Patient agrees with discussion and after shared medical decision making agrees with discharge. All questions were answered to the patient's satisfaction. Patient will follow up with her PCP in 3-5 days. A steroid Dosepak was sent to patient's pharmacy to take as prescribed for her asthma exacerbation. Patient was provided with strict return precautions and instructed to return to the emergency department if any new or worsening symptoms develop. The patient was discharged in stable condition. Critical care time of 37 minutes, exclusive of separately performed procedures, necessary for treating or preventing eminent or life-threatening deterioration of patient's condition of acute respiratory distress requiring an hour long DuoNeb breathing treatment, focused on patient care provided personally by me and time spent during initial evaluation, physical examination, ordering and performing treatments and interventions, ordering and reviewing laboratory studies, ordering and reviewing radiographic studies, re-evaluation of the patient's condition, and evaluation of the patient's response to treatment. Vital Signs Vital Signs: Vital Signs Temperature 98.2 F 10/13/24 00:11 Pulse Rate 84 10/13/24 00:11 Respiratory Rate 18 10/13/24 00:11 Blood Pressure 143/66 H 10/13/24 00:11 Pulse Oximetry 98 10/13/24 00:11 Oxygen Delivery Room Air 10/13/24 00:11 Temperature 98.2 F 10/13/24 00:11 Pulse Rate 60 10/13/24 02:59 Respiratory Rate 18 10/13/24 02:59 Blood Pressure 161/80 H 10/13/24 02:45 Pulse Oximetry 98 10/13/24 02:45 Oxygen Delivery Room Air 10/13/24 02:45 Lab Data 10/13/24 00:26 10/13/24 00:26 Labs: Lab Results 10/13/24 Range/Units 00:26 WBC 5.4 (4.5-10.0) K/mm3 RBC 3.91 L (4.2-5.4) M/mm3 Hgb 11.3 L (12.0-15.0) g/dL Hct 36.0 L (37.0-47.0) % MCV 92.1 (80-100) fl MCH 28.9 (26-34) pg MCHC 31.4 L (32-36) g/dl RDW 13.8 (11.5-14.5) % Plt Count 175 (150-375) k/mm3 MPV 9.3 (7.4-10.4) fl Immature Gran % (Auto) 0.2 (0-0.5) % Neut % (Auto) 36.7 L (45.5-73.1) % Lymph % (Auto) 45.1 H (18.3-44.2) % [place] % (Auto) 9.8 H (2.6-8.5) % Eos % (Auto) 7.8 H (0-4.4) % Baso % (Auto) 0.4 (0.2-1.2) % Lymph # (Auto) 2.44 (0.9-3.2) K/mm3 [place] # (Auto) 0.5 (0.1-0.6) K/mm3 Eos # (Auto) 0.4 H (0-0.3) K/mm3 Baso # (Auto) 0.0 (0.0-0.1) K/mm3 Abs Immat Gran (auto) 0.01 (0.00-0.031) K/mm3 Absolute Neuts (auto) 2.0 (1.3-6.7) K/mm3 Absolute Nucleated RBC 0.000 (0.0-0.012) K/mm3 Nucleated RBC % 0.0 (0.0-0.2) % Sodium 138 (137-145) mmol/L Potassium 3.5 (3.4-5.0) mmol/L Chloride 104 (98-107) mmol/L Carbon Dioxide 29 (22-30) mmol/L Anion Gap 5 (4-12) mmol/L BUN 22 H (7-17) mg/dL Creatinine 0.87 (0.7-1.0) mg/dL Estim Creat Clear Calc 55 ml/min Estimated GFR > 60 (59 - ) Glucose 126 H (65-110) mg/dL Calcium 8.9 (8.4-10.2) mg/dL Magnesium 2.1 (1.6-2.3) mg/dL Total Bilirubin 0.4 (0.2-1.3) mg/dL AST 31 (14-36) U/L ALT 24 (6-35) U/L Alkaline Phosphatase 90 (38-126) U/L Total Protein 7.0 (6.3-8.2) g/dL Albumin 3.9 (3.5-5.1) g/dL Influenza A (RT-PCR) Negative (Negative) Influenza B (RT-PCR) Negative (Negative) RSV (RT-PCR) Negative (Negative) SARS-CoV-2 RNA (RT-PCR) Negative (Negative) Critical Care Time Critical Care Time Critical Care Time: Yes Total Critical Care Time: 37 (Please refer to [facility] for attestation.) Discharge Plan Discharge Clinical Impression: Acute asthma exacerbation, Acute respiratory distress Patient Disposition: Home Condition: Improved Instructions: Antibiotic Form, Asthma (ED) Additional Instructions: Please follow-up with your family doctor within the next 3-5 days. Return emergency department if any new or worsening symptoms develop. Take the prescribed steroid Dosepak as instructed. Patient Language: German Prescriptions: New methylprednisolone [Medrol (Kulwinder)] 4 mg tablets,dose pack See Rx Instructions .ROUTE .COMPLEX Qty: 21 0RF Rx Instructions: for 6 days No Action famotidine [Pepcid] 20 mg tablet 20 mg PO BID ascorbate calcium (vitamin C) 500 mg tablet 500 mg PO DAILY cholecalciferol (vitamin D3) 25 mcg (1,000 unit) capsule 25 mcg PO DAILY Galzin 50 mg (zinc) capsule 50 mg PO DAILY atorvastatin 10 mg tablet 10 mg PO DAILY lisinopril 30 mg tablet 30 mg PO DAILY zolpidem [Ambien] 5 mg tablet 5 mg PO QHS PRN calcium carbonate 500 mg calcium (1,250 mg) tablet 500 mg PO DAILY albuterol sulfate [ProAir HFA] 90 mcg/actuation HFA aerosol inhaler 1 inh INHALATION Q4-6H PRN (Reason: shortness of breath or wheezing) Qty: 18 1RF Follow-up/Referrals: Jonathan,Laurence Solano DO [Primary Care Provider, Unknown] - 3 Days Time of Disposition: 03:19
[2024-10-13 04:00] VITALS: PULSE 68; RESP 18
[2024-10-13 04:15] VITALS: BP 151/71; PULSE 79; RESP 16; O2SAT 98
== END 2024-10-13 04:15 | disposition home or self-care (01) ==
PROVIDERS: Emergency Provider Emergency Medicine; PCP Family Medicine
DX: J45.901 Unspecified asthma with (acute) exacerbation (principal); R06.03 Acute respiratory distress; Z20.822 Contact with and (suspected) exposure to COVID-19; I10 Essential (primary) hypertension; E78.00 Pure hypercholesterolemia, unspecified; M81.0 Age-related osteoporosis without current pathological fracture; M19.90 Unspecified osteoarthritis, unspecified site; K21.9 Gastro-esophageal reflux disease without esophagitis; Z87.11 Personal history of peptic ulcer disease; Z86.0100 Personal history of colon polyps, unspecified; Z87.891 Personal history of nicotine dependence; Z90.710 Acquired absence of both cervix and uterus; Z79.899 Other long term (current) drug therapy
CPT/HCPCS: 36415; 71046; 80053; 83735; 85025; 87637; 93005; 94640; 96374; 99284; J2919

== ENCOUNTER 2024-11-11 04:48 | Emergency (ER) | payer MEDICARE, SELFPAY ==
[2024-11-11] VITALS (13 sets, daily range): BP systolic 152–185; BP diastolic 78–130; PULSE 64–81; RESP 10–20; TEMP 36.6; O2SAT 97–100
--- NOTE | ~2024-11-11 | XR_ITS ---
Examination: XR chest 1V portable Clinical History: SOB Comparison: 10/13/2024 Technique: Portable AP Findings: Cardiomegaly. Lungs clear. No acute bony abnormality. IMPRESSION: 1. No acute cardiopulmonary findings given portable technique. Reviewed, dictated and finalized at location R.
--- NOTE | ~2024-11-11 | CT_ITS ---
CTA CHEST CLINICAL HISTORY: elev dimer; poss trace hemoptysis . COMPARISON: Chest x-ray today CT chest 02/19/2020 TECHNIQUE: Helical CTA performed from thoracic inlet to upper abdomen IV contrast information not listed in PACS Coronal, sagittal reformats. Multiplanar MIPS CT images acquired with automatic exposure control for dose reduction DLP: 277 mGy-cm FINDINGS: Pulmonary arteries: No PE. Thoracic Aorta: No dissection or aneurysm. Heart/pericardium: Mild cardiomegaly. RV/LV ratio: Normal. Lungs/Pleura: Clear. Tracheobronchial tree: A few bibasilar occluded foci. Nodes: No enlarged nodes. Bones: No acute bony abnormality. Soft tissues: A few thyroid nodules. Visualized upper abdomen: Small hiatal hernia. IMPRESSION: 1. No PE. 2. Scattered bronchial mucus plugging. Reviewed, dictated and finalized at location R.
--- OUTSIDE RECORDS SUMMARY | 2024-11-11 04:50 | XMS_ITS | Clinical Summary ---
Author Organization [facility] [place] Address [address] [place] [address] Care Team Providers Care Frothing Machine Operator Name Role Phone Mary Garnica MD Primary Care Provi reshma Allergies Active Allergy Reactions Criticality Noted Date Comments Tramadol Itching Low 08/18/2024 Medications lisinopril-hydr oCHLOROthiazide (ZESTORETIC) 20-12.5 mg per tablet Take 1 tablet by mouth daily 0 01/16/20 25 Active atorvastatin (LIPITOR) 10 mg tablet Take 1 tablet (10 mg total) by mouth daily 5 02/17/19 26 Active meloxicam (MOBIC) 15 mg tablet Take 1 tablet (15 mg total) by mouth daily as needed 5 Active cyclobenzaprine (FLEXERIL) 10 mg tablet Take 1 tablet (10 mg total) by mouth 3 (three) times a day as needed 0 Active zolpidem (AMBIEN) 5 mg tablet Take 1 tablet (5 mg total) by mouth daily Active ascorbic acid (VITAMIN C) 1,000 mg tablet Take 1 tablet (1,000 mg total) by mouth daily Active albuterol HFA (PROVENTIL HFA,VENTOLIN HFA,PROAIR HFA) 90 mcg/actuation inhaler Inhale 2 puffs 1 Active azithromycin (ZITHROMAX) 250 mg tabletIndicatio ns:Subacute cough Take 2 tabs (500 mg) by mouth today, than 1 tab (250 mg) daily for 4 days. 6 tablet 5 11/14/19 25 Active benzonatate (TESSALON) 200 mg capsuleIndicati ons:Subacute cough Take 1 capsule (200 mg total) by mouth 3 (three) times a day as needed for cough keep tessalon out of reach of children, especially children under the age of 10, due to possible serious risk such as if ingested by children under the age of 10. 30 capsule 5 Active Active Problems Problem Noted Date Diagnosed Date Left hand pain 02/21/2021 Ganglion cyst 02/21/2021 Encounters Date Type Department Care Team Description 11/09/2024 Results Follow-Up [facility] at [address] [phone] Laura Lacey NP XR Chest PA Lateral 2 Views 11/08/2024 4:00 PM CDT Ancillary Procedure [facility] at [address] [phone] Acute cough 11/08/2024 3:30 PM CDT Office Visit [facility] at [address] [phone] Ursula Amaya NP Subacute cough (Primary Dx); Exacerbation of asthma, unspecified asthma severity, unspecified whether persistent 10/25/2024 7:00 PM CDT Office Visit [facility] at [address] [phone] Ursula Amaya NP Physical exam, pre-employment (Primary Dx) from Last 3 Months Surgical History Surgery Date Site/Laterality Comments FOOT SURGERY KNEE ARTHROSCOPY BREAST SURGERY HYSTERECTOMY Medical History Medical History Date Comments Asthma Gastric reflux Hiatal hernia Hypercholesteremia Hypertension Osteoarthritis Rheumatoid arthritis (HCC) Peptic ulceration Social History Tobacco Use Types Packs/Day Years Used Date Smoking Tobacco: Former Cigarettes Q uit: 1995 Comments Unknown Sex and Gender Information Value Date Recorded Sex Assigned at Not on file Legal Sex Female 3:46 PM MANAGER CLUB Gender Identity Female 03/10/2021 6:25 AM MANAGER CLUB Sexual Orientation Not on file Obstetrics History Last Filed Vital Signs Vital Sign Reading Time Taken Comments Blood Pressure 156/88 11/08/2024 3:41 PM CDT Pulse 77 11/08/2024 3:41 PM CDT Temperature 36.6 C (97.9 F) 11/08/2024 3:41 PM CDT Respiratory Rate 18 11/08/2024 3:41 PM CDT Oxygen Saturation 97% 11/08/2024 4:01 PM CDT Inhaled Oxygen Concentration - - Weight 89.1 kg (196 lb 8 oz) 11/08/2024 3:41 PM CDT Height 162 cm (5' 3.78) 11/08/2024 3:41 PM CDT Body Mass Index 33.96 11/08/2024 3:41 PM CDT Plan of Treatment Health Maintenance Due Date Last Done Comments Colon Cancer Screening-Colonoscopy 1955 Depression Screening 1955 Fall Risk Assessment 1953 Hepatitis C Screening 1955 Hepatitis B Screening 1971 Well Visit 65+ 2018 Osteoporosis Screening-Bone Density Scan 06/16/2020 06/16/2018, 06/16/2018 Covid-19 Vaccine (2024- 6 season) 2024 05/17/2021, 11/13/2020, 04/13/2020, Additional history exists Influenza Vaccine (#1) 2024 , 11/05/2020, 11/10/2019, Additional history exists Breast Cancer Screening-Mammogram 03/30/2025 03/30/2024, 03/30/2024, 01/11/2017, Additional history exists DTaP/Tdap/Td Vaccine (2 - Td or Tdap) 08/08/2029 08/09/2019 Pneumococcal vaccine 65+ Completed 020, 09/13/2018, 11/09/2003, Additional history exists Zoster Vaccine Completed 03/03/2021, 11/27/2020 Procedures Procedure Name Priority Date/Time Associated Diagnosis Comments XR CHEST PA LATERAL 2 VIEWS Schedule DAVE, Read DAVE (Appt Today, Awaiting Results) 11/08/2024 4:08 PM CDT Acute cough from Last 3 Months Results * XR Chest PA Lateral 2 Views (11/08/2024 4:08 PM CDT) Anatomical Region Laterality Modality Body, Chest N/A Digital Radiogra phy 11/09/2024 4:36 AM CDT Narrative 11/09/2024 4:37 AM CDT EXAM DESCRIPTION: XR CHEST PA LATERAL 2 VIEWS REASON FOR STUDY: cough Pt complains of cough x 3 weeks. Prior biopsies to both breasts. No smoking. No copd,cancer,heart disease. Hx asthma. TECHNIQUE: Frontal and lateral radiographic views of the chest acquired. COMPARISON: None. FINDINGS: LUNGS/PLEURA: No focal consolidation or pneumothorax. No pleural effusion. HEART/MEDIASTINUM: Cardiac silhouette is normal. Remaining mediastinal silhouettes are unremarkable. HARDWARE/LINES/TUBES: None. BONES: No acute findings. IMPRESSION: No acute cardiopulmonary abnormality. THIS IS AN ELECTRONICALLY VERIFIED FINAL REPORT 11/09/2024 4:37 AM - Electronically signed by Jodi Murphy M.D. SN T: Report ID: [id number] Reading Location: [id number] Procedure Note Jodi Murphy MD - 11/09/2024 EXAM DESCRIPTION: XR CHEST PA LATERAL 2 VIEWS REASON FOR STUDY: cough Pt complains of cough x 3 weeks. Prior biopsies to both breasts. Nosmoking. No copd,cancer,heart disease. Hx asthma. TECHNIQUE: Frontal and lateral radiographic views of the chest acquired. COMPARISON: None. FINDINGS: LUNGS/PLEURA: No focal consolidation or pneumothorax. Nopleural effusion. HEART/MEDIASTINUM: Cardiac silhouette is normal. Remaining mediastinal silhouettes are unremarkable. HARDWARE/LINES/TUBES: None. BONES: No acute findings. IMPRESSION: No acute cardiopulmonary abnormality. THIS IS AN ELECTRONICALLY VERIFIED FINAL REPORT 11/09/2024 4:37 AM - Electronically signed by Jodi Murphy M.D. SN T: Report ID: [id number] Reading Location: [place] [address] Ursula Amaya UTILITY TELLER IMG XR PROCEDURES Final Result from Last 3 Months Insurance [address] [place] [id number] [facility] Address: [facility] [address] [place] [id number] [address] [place] [id number] Care Teams Frothing Machine Operator Relationship Specialty Start Date End Date Mary Garnica MD PCP - General 05/24/20
--- OUTSIDE RECORDS SUMMARY | 2024-11-11 04:50 | XMS_ITS | Clinical Summary ---
Author Organization [facility] Address [address] [place] [address] Care Team Providers Care Mattress Filler Name Role Phone Araceli Shane MD Unavailable Marcie Pizano APRN-[facility] Primary Care Provider [phone] [facility],non-owned Affiliates and Associated Physician Practices is amultiple site organization consisting of ambulatory clinics and hospital sitesin [place], [place], [place] and [place]. This disclosure is being madepursuant to the Care Everywhere program and may not contain all information available regarding this patient. Last updated 17.[facility] Allergies No known active allergies Medications [...] fluticasone propionate (Flonase) 50 MCG/ACT nasal spray [place] 1 (one) spray into the nose every [...] chest pain and negative thallium stress at [facility] in [place]. Essential hypertension 04/04/2008 Overview (11/08/2014): Abnormal mammogram 04/04/2008 Asthma 04/04/2008 Osteopenia 04/04/2008 Resolved Problems Problem Noted Date Diagnosed Date Resolved Date Encntr for family development specialist exam (general ) (routine) w/o abn findings [...] 10/26/2017 Immunizations Immunization Administration Dates Next Due Archsy primary monoval ent 12+ yr 0.3mL Purple [...] on file Legal Sex Female 6:55 AM DEPUTY PROGRAM MANAGER Gender Identity Not on file Sexual Orientation [...] 09/14/2023 11:11 AM CDT Plan of Treatment Health Maintenance Due [...] 126/82( 025 8:26 AM CDT) No Michelle Fuchs APRN-[employer] Medical Devices Implanted Type Area Support Team Assoc Device Identifier Shelf Expiration Date Model / Serial / Lot Screw 2.4mm 16mm P/T Lag Kendrick Slfret Implanted:Qty: 2 on 02/17/2019 by Erin Morris DPM at [facility] Right: Foot Osteomed Thiago [id number] / / Impl Fx [id number] 4.5-3mm Phalinx 0d 6 Implanted:Qty: 1 on 02/17/2019 by Erin Morris DPM at [facility] Right: Foot Ooploo [id number] / / Wire Phalinx K 1.1mm Hmrtoe Fx Med Implanted:Qty: 1 on 02/17/2019 by Erin Morris DPM at [facility] Right: Foot Ooploo [id number] / / Wire K Phalinx .9mm Fx Xs Sm Implanted:Qty: 1 on 02/17/2019 by Erin Morris DPM at [facility] Right: Foot [employer] [id number] / / Phalinx Extra Small Implant Implanted:Qty: 1 on 02/17/2019 by Erin Morris DPM at [facility] Right: Foot Ooploo [id number] / / Explanted Type Area Support Team Assoc Device Identifier Shelf Expiration Date Model / Serial / Lot Smooth K-Wire Osteomed Explanted:Qty: 4 on 02/17/2019 at [facility] Right: Foot [id number] / / Procedures Procedure Name Priority Date/Time [...] Resulting Agency Comment Lab Testing performed at: [facility] [address] [phone] us Antoni Jensen MD LAB - CHEMISTRY ORDERABLES Final Result [facility] INSURANCE BILL [address] [place] [address] * (ABNORMAL) COMPREHENSIVE METABOLIC PANEL (06/10/2021 11:34 AM CDT) Pathologist [facility] Glucose 95 70 - 105 mg/dL [facility] [...] Resulting Agency Comment Lab Testing performed at: [address] [place] [id number] Jesica Hernández MD LAB - CHEMISTRY ORDERABLES Fin al Result [facility] ACCOUNT BILL [address] [place] [address] * ENDOSCOPY, COLON, SCREENING (09/07/2018 7:30 AM [...] by the physician, the nurse and the town planner in the procedure room. Mental Status Examination: [...] the patient. Procedure Code(s): --- Professional --- 06871, Colonoscopy, flexible; with biopsy, single or multiple --- Technical --- 07522, Colonoscopy, flexible; with biopsy, single or multiple [...] malignant neoplasm of colon CPT copyright 2017 [employer]. All rights reserved. The codes documented in this report are preliminary and upon acrobatic dancer review may be revised to meet current compliance requirements. Dr. Stevie Caban MD Stevie Caban MD 09/07/2018 8:20:10 AM This report has been signed electronically. Number of Addenda: 0 Note Initiated On: 09/07/2018 7:30 AM [facility] 09/07/2018 7:30 AM CDT us Stevie Caban MD GI PROCEDURE ORDERABLES Chuck brigitte Result - Final [facility] [place] [id number] * DEXA BONE DENSITY AXIAL SKELETON (06/16/2018 [...] ORDER (01/12/2018) Anatomical Region Laterality Modality Mammography Provider Unknown MAMMO ORDERABLES Final Result from Last 3 Months or Most Recently Relevant to Health Maintenance Insurance [employer] MANAGED MEDICARE ADV Care Teams Mattress Filler Relationship Specialty Start Date End Date Marcie Pizano, PATTERN HANGER-LENS GAUGER [address] [place] [address] PCP - General Nurse Practitioner Family 09/01/23 Araceli Shane MD Rheumatology 01/27/19
--- OUTSIDE RECORDS SUMMARY | 2024-11-11 04:50 | XMS_ITS | Encounter Summary ---
Author Organization [facility] Address [address] [place] [address] Care Team Providers Care Physician Practice Consultant Name Role Phone Nisha Castro MD Primary Care Provider + Encounter Details Date Type Department Care Team (Late st Contact Info) Description 10/13/2024 Surge Performance Trainingt Message Enc [facility] Family Medicine - [place] [address] [place] [address] Nisha Castro MD [address] [place] [address] ER visit Social History Tobacco Use Types Packs/Day Years [...] Sex Assigned at Female 02/22/2024 11:05 AM CUSTOMER SERVICE OFFICER Legal Sex Female 8:04 PM CDT Gender Identity Female 02/04/2021 10:02 AM CUSTOMER SERVICE OFFICER Sexual Orientation Not on file documented as of this encounter Progress Notes * Nisha Castro MD - 10/13/2024 1:14 PM CDT Please keep her on the cancellation list to establish care. Carley- please message her back to let her know we got her message and will keep her on cancellation list. Glad she is feeling better. documented in this encounter Plan of Treatment Upcoming Encounters Date Type Department Care Team (Late st Contact Info) Description 01/09/2025 8:10 AM CUSTOMER SERVICE OFFICER Office Visit [facility] Family Medicine - [place] [address] [place], [place] [phone] Nisha Castro MD [address] [place] [address] documented as of this encounter Visit Diagnoses Not on filedocumented in this encounter Additional Health Concerns Assessment Noted Time PHQ-9 Depression Total Score: 0 03/03/19 9:05 AM CUSTOMER SERVICE OFFICER documented as of this encounter Care Teams Physician Practice Consultant Relationship Specialty Start Date End Date Nisha Castro MD [address] [place], [place] [id number] PCP - General FAMILY PRACTICE 10/02/24 documented as of this encounter
--- OUTSIDE RECORDS SUMMARY | 2024-11-11 04:51 | XMS_ITS | Clinical Summary ---
Author Organization [facility] Address [address] [place] [address] Care Team Providers Care Reroller Hand Name Role Phone Nisha Castro MD Primary Care Provider + Allergies No known active allergies Medications ACETAMINOPHEN EXTRA STRENGTH 500 MG tablet 1 Active Cholecalciferol 50 MCG (1999 UT) Cap Take 2,000 Units by mouth daily. Active ibuprofen 200 MG tablet Take 1 tablet (200 mg total) by mouth every 6 (six) hours as needed for Pain. Active zinc sulfate 220 MG capsule Take 50 mg by mouth daily. Active levocetirizine (XYZAL) 5 MG tablet Take 1 tablet (5 mg total) by mouth daily as needed (allergies) . Active vitamin C (ASCORBIC ACID) 250 MG tablet Take 2 tablets (500 mg total) by mouth daily. Active Calcium Carb-Cholecalcifero l (CALCIUM + VITAMIN D3 OR) Take 1,200 mg by mouth daily. 1200mg calcium, 25mcg vitamin d 3 Active fluticasone propionate (FLONASE) 50 MCG/ACT nasal spray 1 spray by Nasal route daily as needed for Rhinitis. Active lisinopril-hydroCHL OROthiazide (ZESTORETIC) 20-12.5 MG tabletIndications:P rimary hypertension Take 1 tablet by mouth daily. 90 tablet 5 01/16/20 25 Active atorvastatin (LIPITOR) 10 MG tabletIndications:M ixed hyperlipidemia Take 1 tablet (10 mg total) by mouth daily. 90 tablet 5 02/17/19 26 Active zolpidem (AMBIEN) 5 MG tabletIndications:I nsomnia, unspecified type Take 0.5 tablets (2.5 mg total) by mouth nightly as needed for Sleep. 15 tablet 5 10/26/19 25 Active Problems Problem Noted Date Diagnosed Date Rash and other nonspecific skin eruption 025 Overview (07/18/2024): Images from the original note were not included. 07/18/2024: She reports she started experiencing rash after [facility]. She reports [...] a sunburn when she was living in [place] that did not heal for several months. [...] take Tylenol and ibuprofen. Seronegative rheumatoid arthritis ([facility] HHS/H CC) 03/03/2024 Overview (04/18/2024): Initial [...] pharmacy. Additional prescriptions to be obtained through tape transferrer. Assessment & Plan (03/03/2024 7:34 PM DIRECTOR OF DIVERSITY AND INCLUSION): She is to continue current medication and is instructed to make follow-up appointment with tape transferrer. She reports she is following with ophthalmology. Status post total right knee replacement 025 Overview (03/03/2024): Initial visit 03/03/2024: Reports she had surgery in June 2022 through [facility] in [place]. Depression screening negative 03/03/2024 Overview (03/03/2024): PHQ-2 [...] all Assessment & Plan (03/03/2024 7:12 PM DIRECTOR OF DIVERSITY AND INCLUSION): Depression screening negative. This was discussed with patient in person at appointment and she denied having any questions or concerns. Cigarette nicotine dependence in remission 03/03 Overview (03/03/2024): Initial visit 03/03/2024: She reports she smoked approximately 1 pack/day of cigarettes for approximately 20 years and stopped smoking 28 years ago. Assessment & Plan (03/03/2024 7:14 PM DIRECTOR OF DIVERSITY AND INCLUSION): She does not qualify for lung cancer [...] cold Assessment & Plan (03/03/2024 7:25 PM DIRECTOR OF DIVERSITY AND INCLUSION): TSH ordered to evaluate thyroid function and [...] laser. Assessment & Plan (03/03/2024 7:19 PM DIRECTOR OF DIVERSITY AND INCLUSION): Is to continue following with ophthalmology especially in the setting of her hydroxychloroquine use. History of peptic ulcer 03/03/2024 Overview (03/03/2024): Initial visit 03/03/2024: She reports she was diagnosed via endoscopy by clinical recruiter with 3 stomach ulcers and started on treatment. See under GERD. History of abnormal mammogram 03/03/2024 Overview (03/03/2024): Initial visit 03/03/2024: She reports she gets regular mammograms. She reports she has had an abnormal mammogram and right breast and left breast at separate times and had lumpectomies in both breast and follow-up mammograms were normal. Assessment & Plan (03/03/2024 7:21 PM DIRECTOR OF DIVERSITY AND INCLUSION): Need to obtain records of previous mammograms including most recent Status post total hysterectomy 03/03/2024 Overview (03/03/2024): Initial visit 03/03/2024: She reports she had total hysterectomy including removal of her ovaries when she was in her 50s. Other neutropenia 03/03/2024 Overview (03/03/2024): Initial visit 03/03/2024: Noted incidentally on CBC. Mild neutropenia. Assessment & Plan (03/21/2024 9:28 AM DIRECTOR OF DIVERSITY AND INCLUSION): Discussed mild neutropenia with patient. I would like to repeat CBC however currently patient is feeling somewhat under the weather so we will wait. She is encouraged to make appointment with rheumatology as she is to follow-up regarding hydroxychloroquine. Assessment & Plan (03/03/2024 7:28 PM DIRECTOR OF DIVERSITY AND INCLUSION): Mild neutropenia. We can repeat to confirm. [...] pharmacy. The 10-year ASCVD risk score (Shari DK, et al., 2019) is: 10.1% Values used to calculate the score: Age: 69 years Sex: Female Is Non- : Yes Diabetic: No Tobacco smoker: No Systolic Blood Pressure: 129 mmHg Is BP treated: Yes HDL Cholesterol: 70 MG/DL Total Cholesterol: 147 MG/DL Assessment & Plan (03/03/2024 7:13 PM DIRECTOR OF DIVERSITY AND INCLUSION): Lipid panel returned within normal limits. Patient [...] ordered. Assessment & Plan (03/03/2024 7:17 PM DIRECTOR OF DIVERSITY AND INCLUSION): She did not request refill at this [...] colonoscopy. Assessment & Plan (03/03/2024 7:05 PM DIRECTOR OF DIVERSITY AND INCLUSION): No pathology is available at this time so we will need to request. Esophageal stricture 02/05/2017 Osteopenia of multiple sites 04/04/2008 Overview (03/03/2024): Initial visit 03/03/2024: Patient brought in copy of previous DEXA scan from 12/08/2022 which showed osteopenia. Assessment & Plan (03/03/2024 7:04 PM DIRECTOR OF DIVERSITY AND INCLUSION): Continue current calcium and vitamin D3 supplementation at this time. Mild intermittent asthma without complication (H HS/HCC) 04/04/2008 Overview (03/03/2024): Initial visit 03/03/2024: She reports she was diagnosed with asthma years ago and has very few times when asthma gives her any trouble. She reports when she moved to [place] she lost 20 pounds reports she has not had issues since up recently within the last week or so that she thinks is related to cold weather and she had a little bit of shortness of breath and coughing. She reports she does not currently have albuterol rescue inhaler. Assessment & Plan (03/03/2024 7:15 PM DIRECTOR OF DIVERSITY AND INCLUSION): Based on patient's description, asthma is mild [...] daily. Assessment & Plan (03/21/2024 9:27 AM DIRECTOR OF DIVERSITY AND INCLUSION): Discussed with patient that in the setting [...] pressure. Assessment & Plan (03/03/2024 7:24 PM DIRECTOR OF DIVERSITY AND INCLUSION): Blood pressure is elevated in office today. [...] GI Dr. Craft with [facility]. Assessment & Plan (06/19/2024 8:14 AM CDT): Counseled patient on avoiding foods that can exacerbate reflux. She can take Pepcid 20 mg up to twice daily as needed for reflux. Assessment & Plan (03/03/2024 7:09 PM DIRECTOR OF DIVERSITY AND INCLUSION): Discussed with patient the patient long-term sequelae [...] tea. 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 If she acutely [...] Encounters Date Type Department Care Team Description 10/13/2024 Scan [facility] HE[facility] INFO SRVCS Scanned, Doc Med Group Image (SCAN) 10/13/2024 MyChart Message Enc [facility] Family Medicine - [place] [id number] [place] [address] Nisha Castro MD ER visit 09/25/2024 MyChart Message Enc [facility] Family Medicine - [place] [address] [place] [address] Nisha Castro MD Prescription refills 09/25/2024 Telephone [facility] Multispecialty Care - [place] [address] [place] [address] Laurence Castillo, DO Refill Request 08/18/2024 Scan [facility] HEALTH INFO SRVCS Scanned, Doc Med Group 08/16/2024 10:10 AM CDT - 08/16/2024 11:59 PM CDT Hospital Encounter [facility] Diagnostic Imaging [address] [place] [address] Valencia MD Discharge Disposition: Home or Self Care (Routine Discharge) 08/16/2024 Travel from Last 3 Months Immunizations Immunization Administration [...] Sex Assigned at Female 02/22/2024 11:05 AM DIRECTOR OF DIVERSITY AND INCLUSION Legal Sex Female 8:04 PM CDT Gender Identity Female 02/04/2021 10:02 AM DIRECTOR OF DIVERSITY AND INCLUSION Sexual Orientation Not on file Last Filed [...] st Contact Info) Description 01/09/2025 8:10 AM DIRECTOR OF DIVERSITY AND INCLUSION Office Visit [facility] Family Medicine - [place] [address] [facility] [address] [place] [address] Nisha Castro MD [address] [place] [id number] Health Maintenance Due Date Last Done Comments [...] of not completing the topic PHQ-2 (Physician Marshall) Completed 03/03/2024 Meningococcal B Vaccine Aged Out No l onger eligible based on patient's age to complete this topic Meningococcal Vaccine Aged Out No james jesus eligible based on patient's age to complete this topic RSV Immunizations Under 20 Months Aged Out No longer eligible based on patient's age to complete this topic Procedures Procedure Name Priority Date/Time Associated Diagnosis Comments IMAGE GENERIC 10/13/2024 XR KNEE RT 3V Routine 08/16/2024 10:45 AM CDT Pain in right knee XR KNEE LT 3V Routine 08/16/2024 10:45 AM CDT Pain in left knee MG SCREENING W MICHELLE MARSHALL DIGI Routine 03/30/2024 9:13 AM DIRECTOR OF DIVERSITY AND INCLUSION Screening mammogram for breast cancer BONE DENSITY GENERIC (SCAN ORDER) 12/08/2022 from Last 3 Months or Most Recently Relevant to Health Maintenance Results * IMAGE GENERIC (10/13/2024) Anatomical Region Laterality Modality Other 10/13/2024 us Doc Med Group Scanned SCANNING Final Resu lt * XR KNEE RT 3V (08/16/2024 10:45 AM CDT) Anatomical Region Laterality Modality Knee Radiographic Kerrie ging 08/16/2024 5:02 PM CDT Impressions 08/16/2024 5:04 PM CDT IMPRESSION: 1. Interval total right knee arthroplasty with no acute hardware or osseous abnormality Referred By: Interpreted By: Charly Woo MD, 08/16/2024 5:02 PM Narrative 08/16/2024 5:04 PM CDT [place] [id number] Examination: Right knee 3 views Exam Date/Time: [...] Procedure Note Charly Woo MD - 08/16/2024 [place] [address] Examination: Right knee 3 views Exam Date/Time: [...] By: Charly Woo MD, 08/16/2024 5:[address] Valencia MD GENERAL IMAGING Final Result * XR KNEE LT 3V (08/16/2024 10:45 AM CDT) Anatomical Region Laterality Modality Knee Radiographic Kerrie ging 08/16/2024 5:22 PM CDT Impressions 08/16/2024 5:23 PM CDT IMPRESSION: Mild progression of degenerative changes. Ordered By: COURT VALENCIA Interpreted By: Leland Calloway MD, 08/16/2024 5:22 PM Narrative 08/16/2024 5:23 PM CDT [facility] [place] [address] Examination: XR KNEE LT 3V Exam time: [...] Procedure Note Leland Calloway MD - 08/16/2024 [facility] [place] [address] Examination: XR KNEE LT 3V Exam time: [...] W MICHELLE MARSHALL DIGI (03/30/2024 9:13 AM DIRECTOR OF DIVERSITY AND INCLUSION) Anatomical Region Laterality Modality Breast Bilateral Mammography 04/04/2024 11:5 5 AM DIRECTOR OF DIVERSITY AND INCLUSION Impressions 04/04/2024 11:57 AM DIRECTOR OF DIVERSITY AND INCLUSION IMPRESSION: No significant interval change. No mammographic evidence of malignancy. RECOMMENDATION: Routine ScreeningBilateral OVERALL IMAGING ASSESSMENT: ACR BI-RADS 2 - BENIGN FINDING(S). Ordered By: LAURENCE CASTILLO Interpreted By: Mich Becker, 04/04/2024 11:55 AM Narrative 04/04/2024 11:57 AM DIRECTOR OF DIVERSITY AND INCLUSION [address] [address] EXAMINATION: MG SCREENING W MICHELLE MARSHALL [...] (12/08/2022) Anatomical Region Laterality Modality Other 12/08/2022 Doc Med Group Scanned SCANNING Final Resu lt from Last 3 Months or Most Recently Relevant to Health Maintenance Insurance [address] [place] [id number] [facility] MEDICARE Care Teams Reroller Hand Relationship Specialty Start Date End Date Nisha Castro MD [address] [place] [address] PCP - General FAMILY PRACTICE 10/02/24
--- OUTSIDE RECORDS SUMMARY | 2024-11-11 04:51 | XMS_ITS | Encounter Summary ---
Author Organization [facility] Address [address] [place] [address] Care Team Providers Care International Controller Name Role Phone Mary Garnica MD Primary Care Provi reshma Encounter Details Date Type Department Care Team (Late st Contact Info) Description 11/09/2024 Results Follow-Up [facility] Convenient Care at [address] [address] Laura Lacey NP [address] [place] [address] XR Chest PA Lateral 2 Views Social History Tobacco Use Types Packs/Day Years Used Date Smoking Tobacco: Former Cigarettes Q uit: 1995 Comments Unknown Sex and Gender Information Value Date Recorded Sex Assigned at Not on file Legal Sex Female 3:46 PM DOCUMENT CLERK Gender Identity Female 03/10/2021 6:25 AM DOCUMENT CLERK Sexual Orientation Not on file documented as of this encounter Plan of Treatment Not on file documented as of this encounter Visit Diagnoses Not on filedocumented in this encounter Care Teams International Controller Relationship Specialty Start Date End Date Mary Garnica MD PCP - General 05/24/20 documented as of this encounter
--- OUTSIDE RECORDS SUMMARY | 2024-11-11 04:51 | XMS_ITS | Patient Health Record ---
Author Organization [facility] Smaantha curiel Billing Info Address [address] [place], [place] [address] Care Team Providers Care Pipe Covering Molder Name Role Phone MD MOLLY AMBROSE Primary Care Provider ALEJANDRO [place] Unavailable [phone] Allergies No Known Allergies Reason For Referral [...] Date [employer] MEDICARE ADVANTAGE PPO [address] [address] [place], [place] [id number] Donald Arroyo Self - patient is the insured Medical (General) History Medical History History ICD Code Hypertension Hyperlipidemia Surgical History Surgery Date(Month/Year) knee replacement R breast biopsy knee arthroscopy foot surgery hysterectomy
--- OUTSIDE RECORDS SUMMARY | 2024-11-11 04:51 | XMS_ITS | Encounter Summary ---
Author Organization [facility] Address [address] [place] [address] Care Team Providers Care Floor Cashier Name Role Phone JonathanLaurence Dottie CABA Primary Care Provider Nisha Borrego MD Primary Care Provider + Encounter Details Date Type Department Care Team (Latest Contact Info) Description 09/25/2024 MyChart Message Enc [facility] Family Medicine - [place] [address] [place] [address] Nisha Castro MD [address] [place], [place] [phone] Prescription refills Social History Tobacco Use Types [...] Sex Assigned at Female 02/22/2024 11:05 AM TRAVEL ADMINISTRATOR Legal Sex Female 8:04 PM CDT Gender Identity Female 02/04/2021 10:02 AM TRAVEL ADMINISTRATOR Sexual Orientation Not on file documented as of this encounter Plan of Treatment Upcoming Encounters Date Type Department Care Team (Late st Contact Info) Description 01/09/2025 8:10 AM TRAVEL ADMINISTRATOR Office Visit [facility] Family Medicine - [place] [address] [place], [place] [address] Nisha Castro MD [address] [place] [address] documented as of this encounter Visit Diagnoses Not on filedocumented in this encounter Additional Health Concerns Assessment Noted Time PHQ-9 Depression Total Score: 0 03/03/19 9:05 AM TRAVEL ADMINISTRATOR documented as of this encounter Care Teams Floor Cashier Relationship Specialty Start Date End Date Laurence Castillo DO PCP - General FAMILY PRACTICE 02/22/24 10/01/24 Nisha Castro MD [address] [place] [address] PCP - General FAMILY PRACTICE 10/02/24 documented as of this encounter
--- OUTSIDE RECORDS SUMMARY | 2024-11-11 04:51 | XMS_ITS | Encounter Summary ---
Author Organization [facility] Address [address] [place] [address] Care Team Providers Care Director Of Sales Name Role Phone Laurence Castillo DO Primary Care Provider Nisha Borrego MD Primary Care Provider + Encounter Details Date Type Department Care Team (Late Contact Info) Description 04/10/2024 MyChart Message Enc [facility] Multispecialty Care - [address] [place] [address] Laurence Castillo DO Coughing Social History Tobacco Use Types Packs/Day [...] Sex Assigned at Female 02/22/2024 11:05 AM BULL WHEEL WORKER Legal Sex Female 8:04 PM CDT Gender Identity Female 02/04/2021 10:02 AM BULL WHEEL WORKER Sexual Orientation Not on file documented as of this encounter Plan of Treatment Upcoming Encounters Date Type Department Care Team (Late Contact Info) Description 01/09/2025 8:10 AM BULL WHEEL WORKER Office Visit [facility] Medical [facility] Family Medicine - [place] [address] [place], [place] [address] Nisha Castro MD [address] [place], [place] [phone] documented as of this encounter Visit Diagnoses Not on filedocumented in this encounter Additional Health Concerns Assessment Noted Time PHQ-9 Depression Total Score: 0 03/03/19 9:05 AM BULL WHEEL WORKER documented as of this encounter Care Teams Director Of Sales Relationship Specialty Start Date End Date Laurence Castillo DO PCP - General FAMILY PRACTICE 02/22/24 10/01/24 Nisha Castro MD [address] [place], [place] [phone] PCP - General FAMILY PRACTICE 10/02/24 documented as of this encounter
--- OUTSIDE RECORDS SUMMARY | 2024-11-11 04:51 | XMS_ITS | Patient Health Record ---
Author Organization [facility] Address [address] [address] Care Team Providers Care Field Staff Manager Name Role Phone Oskar BALDERAS, Cynthia Primary Care Provider Rubén Lucio MD, [facility] [phone] Allergies No Known Allergies Reason For Referral [...] Notes Problem Gastroesophageal reflux disease without esophagitis (693730826) Gastroesophageal reflux disease without esophagitis (K21.9) Active confirmed Problem Dysphagia (94010445) Dysphagia, unspecified type (R13.10) Active confirmed Problem History of polyp of colon (situation) (238925691) Hx of colonic polyps (Z86.010) Active confirmed Plan Of Treatment Future Test Test Name Order Date EGD 12/23/2021 Insurance Providers Payer Name Payer Address Payer Phone Subscriber Number Group Number Insured Name Patient Relationship to Insured Coverage Start Date Coverage End Date [employer] MEDICARE COMPLETE CHOICE [facility] [address] [address] [place], [place] [id number] Donald Arroyo Self - patient is the insured Medical (General) History Medical History History ICD Code bp colon polys arthristis asthma gerd Surgical History Surgery Date(Month/Year) Hysterectomy foot surgery breast biopsy Knee surgery 03/2017
--- OUTSIDE RECORDS SUMMARY | 2024-11-11 04:51 | XMS_ITS | Encounter Summary ---
Author Organization [facility] Address [address] [place] [address] Care Team Providers Care Car Starter Name Role Phone Laurence Castillo DO Primary Care Provider Nisha Borrego MD Primary Care Provider + Encounter Details Date Type Department Care Team (Late st Contact Info) Description 04/06/2024 MyChart Message Enc [facility] Multispecialty Care - [address] [place] [address] Laurence Castillo, Referral Social History Tobacco Use Types Packs/Day [...] Sex Assigned at Female 02/22/2024 11:05 AM BANQUET SERVER ON CALL Legal Sex Female 8:04 PM CDT Gender Identity Female 02/04/2021 10:02 AM BANQUET SERVER ON CALL Sexual Orientation Not on file documented as of this encounter Plan of Treatment Upcoming Encounters Date Type Department Care Team (Late st Contact Info) Description 01/09/2025 8:10 AM BANQUET SERVER ON CALL Office Visit [facility] Family Medicine - [place] [address] [place] [address] Nisha Castro MD [address] [place], [place] [address] documented as of this encounter Visit Diagnoses Not on filedocumented in this encounter Additional Health Concerns Assessment Noted Time PHQ-9 Depression Total Score: 0 03/03/19 9:05 AM BANQUET SERVER ON CALL documented as of this encounter Care Teams Car Starter Relationship Specialty Start Date End Date Laurence Castillo DO PCP - General FAMILY PRACTICE 02/22/24 10/01/24 Nisha Castro MD [address] [place], [place] [phone] PCP - General FAMILY PRACTICE 10/02/24 documented as of this encounter
--- OUTSIDE RECORDS SUMMARY | 2024-11-11 04:51 | XMS_ITS | Data Portability ---
Author Organization [facility] Address [address] [facility] [place] [address] Care Team Providers Care Lifter Driver Name Role Phone MARIBEL EVETTE Primary Care Provider Assessment No assessment recorded. Plan of Treatment Reminders Order Date Submit Date Provider Last Modified By Organization Details Last Modified Time Details Appointments None recorded. Lab vitamin B12 + folate, serum or blood 2021 022 [facility], [address] [place] [address], [address], [place], [address], 05:08:41 magnesium, serum or plasma 2021 022 [facility], [address] [place] [address], [address], [place], [address], 11:35:10 BMP, serum or plasma 2021 022 [facility] [facility], [address] [place] [address], [address], [place], [address], 11:35:09 HbA1c (hemoglobi n A1c), blood 2021 022 [facility] [facility], [address] [place] [address], [address], [place], [address], 05:08:42 Referral sports medicine referral 2020 021 [facility], [address], [address], [place], [address], 16:08:39 hand surgeon referral 2020 KAYLI Paredes MD, [address], [address], [place], [address], 2 13:24:23 physical therapist referral - back pain 2020 [facility] (Outpatient Therapy), [address] [facility], [place], [address], 10:11:25 Procedures None recorded. Surgeries None recorded. Imaging MRI, lumbar spine, w/o contrast 2020 [facility] Scheduling, [address], [place], [address], 2 15:03:27 XR, knee, 3 view - Left 2020 [facility] Scheduling, [address], [place], [address], 2 15:03:52 XR, knee, 3 view - Right 2020 [facility] Scheduling, [address], [place], [address], 2 15:04:01 XR, lumbar spine 2020 [facility] Scheduling, [address], [place], [address], 13:10:54 XR, thoracic spine, [address] [facility] Scheduling, [address] [facility], [place], [address], 13:11:02 XR, sacrum + coccyx [address] [facility] Scheduling, [address] [facility], [place], [address], 13:10:45 Medication Orders meloxicam 15 mg tablet 2024 025 [place] [id number], [address], [place], [id number], 12:06:00 meclizine 25 mg tablet 2021 022 [place] [facility], [address] [place] [address], [id number], 17:14:04 Tylenol Extra Strength 500 mg tablet 2020 021 [email or web address] Not available 17:16:38 Patient TargetsNo targets recorded. Patient Instructions Encounter Date Encounter Id Patient Instructions Last Modified By Organization Details Last Modified Time 11/05/2020 [id number] I was present an d available in the Family Medicine clinic to discuss this patient's care for the duration of the appointment. I agree with the resident's assessment and plan as documented with the following addendum: None. Dr. Tiffanie Dhaliwal MD Attending Physician, [facility]. Not available 11/05/2020 23:23:28 11/19/2020 [id number] I was present an d available in the Family Medicine clinic to discuss this patient's care for the duration of the appointment. I agree with the resident's assessment and plan as documented with the following addendum: None. Dr. Gomez Aleman MD Attending Physician, [facility]. [email or web address] Not available 11/20/2020 15:47:18 02/25/2021 [id number] A healthy lifestyle: care instructions [email or web address] Not available 02/25/2021 17:07:50 Patient discusse d with me face to face. Agree with documentation as above, MD Edith. cyn Not available 02/26/2021 09:34:57 Reason for Referral Physical Therapist Referral for Sciatica back pain Referring Physician: Mary Garnica, Time Study Clerk, Encounter Date: 11/05/2020 Referring Physician: Tiffanie Dhaliwal, [facility] Medicine, Encounter Date: 01/09/2021 Hand Surgeon Referral for Ne uroma of hand Referring Physician: Tiffanie Dhaliwal, [facility] Medicine, Encounter Date: 01/09/2021 Results Created Date Observation Date Name Description Value Unit Range Abnormal Flag Note LastModifiedBy Organization Detail LastModifiedTime 02/26/19 22 02/26/2021 BASIC METAB OLIC PANEL glucose 84 mg/dL 70-99 Not Available [facility] (Lab) [place], [address], 02/26/2021 11:35:09 02/26/19 22 02/26/2021 BASIC METAB OLIC PANEL BUN 15 mg/dL 7-18 Not Available [facility] (Lab) [place], [address], 02/26/2021 11:35:09 02/26/19 22 02/26/2021 BASIC METAB OLIC PANEL creatinine 0.65 mg/dL 0.55-1 .02 Not Available [facility] (Lab) [place], [address], 02/26/2021 11:35:09 02/26/19 22 02/26/2021 BASIC METAB OLIC PANEL sodium 138 mmol/ L 136-14 5 Not Available [facility] (Lab) [place], [address], 02/26/2021 11:35:09 02/26/19 22 02/26/2021 BASIC METAB OLIC PANEL potassium 3.8 mmol/ L 3.5-5. 1 Not Available [facility] (Lab) [address] [facility], [place], [address], 02/26/2021 11:35:02/26/19 22 02/26/2021 BASIC METAB OLIC PANEL chloride 104 mmol/ L 100-10 8 Not Available [facility] (Lab) [place], [address], 02/26/2021 11:35:02/26/19 22 02/26/2021 BASIC METAB OLIC PANEL total CO2 31.0 mmol/ L 21-32 Not Available [facility] (Lab) [place], [address], 02/26/2021 11:35:02/26/19 22 02/26/2021 BASIC METAB OLIC PANEL calcium 9.2 mg/dL 8.5-10 .1 Not Available [facility] (Lab) [address], [place], [address], 02/26/2021 11:35:02/26/19 22 02/26/2021 BASIC METAB OLIC PANEL anion gap 3.0 mmol/ L 5-15 low Not Available [facility] (Lab) [place], [address], 02/26/2021 11:35:02/26/19 22 02/26/2021 BASIC METAB OLIC PANEL BUN creatinine ratio 23.1 6-26 Not Available [facility] (Lab) [place], [address], 02/26/2021 11:35:09 02/26/19 22 02/26/2021 BASIC METAB OLIC PANEL est GFR nonafroameri can >90 mL/mi n/1.7 3_M2 >90 Not Available [facility] (Lab) [place], [address], 02/26/2021 11:35:09 02/26/19 22 02/26/2021 BASIC METAB OLIC PANEL est GFR afric/amer >90 mL/mi n/1.7 3_M2 >90 NOTE: eGFR is not calcu lated for patie nts <18 years of age. This is an estim ated GFR (CKD EPI) and shoul d not be used for calcu latin g drug doses . Not Available [facility] (Lab) [place], [address], 02/26/2021 11:35:09 02/26/19 22 02/26/2021 MAGNE SIUM magnesium 2.4 mg/dL 1.8-2. 4 Not Available [facility] (Lab) [place], [address], 02/26/2021 11:35:10 02/26/19 22 02/26/2021 VITAM IN B12 vitamin B12 558 pg/mL 254-13 20 Not Available [facility] (Lab) [place], [address], 02/26/2021 12:25:14 02/26/19 22 02/26/2021 FOLAT E folate 14.1 NG/mL 3.1-17 .5 Not Available [facility] (Lab) [place], [address], 02/26/2021 12:25:16 03/10/19 22 03/10/2021 BASIC METAB OLIC PANEL (8) interpretati on: Commen t GFR estim ate at the follo wing level for >or=3 month s is class ified as follo ws: GFR WITH KIDNE Y DAMAG E WITHO UT KIDNE Y DAMAG E >or=9 0 Stage 1 Donna l 60-89 Stage 2 Decr eased GFR 30-59 Stage 3 Stage 3 15-29 Stage 4 Stage 4 <15 (or dialy sis) Stage 5 Stage 5 Estim ated GFR will over estim ate true GFR if serum creat inine is risin g as in acute renal failu re and will under estim ate true GFR if serum creat inine is decli stephanie as in resol ving acute renal failu re. Addit ional infor matjorge luis n may be found at www.k doqi. org. Not Available [facility] [address], [place], [address], 03/11/2021 05:08:41 03/10/19 22 03/11/2021 BASIC METAB OLIC PANEL (8) glucose 99 mg/dL 65-99 Not Available [facility] [address], [place], [address], 03/11/2021 05:08:41 03/10/19 22 03/11/2021 BASIC METAB OLIC PANEL (8) BUN 17 mg/dL 8-27 Not Available [facility] [address], [place], [address], 03/11/2021 05:08:41 03/10/19 22 03/11/2021 BASIC METAB OLIC PANEL (8) creatinine 0.62 mg/dL 0.57-1 .00 Not Available [facility] [address], [place], [address], 03/11/2021 05:08:41 03/10/19 22 03/11/2021 BASIC METAB OLIC PANEL (8) eGFR if nonafricn AM 94 mL/mi n/1.7 3 >59 Not Available [facility] [address], [place], [address], 03/11/2021 05:08:41 03/10/19 22 03/11/2021 BASIC METAB OLIC PANEL (8) eGFR if africn AM 108 mL/mi n/1.7 3 >59 In accor dance with recom menda ticirilo from the NKF-A SN Task force , [facility] is in the proce ss of updat ing its eGFR calcu latio n to the 2020 CKD-E PI creat inine equat ion that estim ates kidne y funct ion witho ut a race varia ble. Not Available [facility] [address], [place], [address], 03/11/2021 05:08:41 03/10/19 22 03/11/2021 BASIC METAB OLIC PANEL (8) BUN/creatini ne ratio 27 12-28 Not Available [facility] [address], [place], [address], 03/11/2021 05:08:41 03/10/19 22 03/11/2021 BASIC METAB OLIC PANEL (8) sodium 140 mmol/ L 134-14 4 Not Available [facility] [address], [place], [address], 03/11/2021 05:08:41 03/10/19 22 03/11/2021 BASIC METAB OLIC PANEL (8) potassium 4.0 mmol/ L 3.5-5. 2 Not Available [facility] [address], [place], [address], 03/11/2021 05:08:41 03/10/19 22 03/11/2021 BASIC METAB OLIC PANEL (8) chloride 102 mmol/ L 96-106 Not Available [facility] [address], [place], [address], 03/11/2021 05:08:41 03/10/19 22 03/11/2021 BASIC METAB OLIC PANEL (8) carbon dioxide, total 25 mmol/ L 20-29 Not Available [facility] [address] [facility] [address], [place], [address], 03/11/2021 05:08:41 03/10/19 22 03/11/2021 BASIC METAB OLIC PANEL (8) calcium 9.2 mg/dL 8.7-10 .3 Not Available [facility] [address] [facility] [address], [place], [address], 03/11/2021 05:08:41 03/10/19 22 03/11/2021 VITAM IN B12 AND FOLAT E vitamin B12 514 pg/mL 232-12 45 Not Available [facility] ([facility]) [address] [facility], [place], [address], 03/11/2021 05:08:41 03/10/19 22 03/11/2021 VITAM IN B12 AND FOLAT E folate (folic acid), serum 9.6 NG/mL >3.0 A serum folat e gt ntrat ion of less than 3.1 ng/mL is consi dered to repre sent clini ramonita defic iency . Not Available [facility] ([facility]) [address] [facility], [place], [address], 03/11/2021 05:08:41 03/10/19 22 03/11/2021 HEMOG LOBIN A1C hemoglobin A1C 5.6 % 4.8-5. 6 Predi abete s: 5.7 - 6.4 Diabe sam: >6.4 Glyce marlon contr ol for adult s with diabe sam: <7.0 Not Available [facility] ([facility]) [address] [facility], [place], [address], 03/11/2021 05:08:42 03/10/19 22 03/11/2021 MAGNE SIUM magnesium 2.1 mg/dL 1.6-2. 3 Not Available [facility] [address] [facility] [address], [place], [address], 03/11/2021 05:08:42 06/11/19 22 06/10/2021 Compr ehens jose d metab olic 1999 panel - Serum or Plasm a glucose [mass/volume ] in serum or plasma 95 mg/dL low: 70mg/d Lhigh: 105mg/ dL Not Available Not Available 08/16/2024 11:40:06/11/19 22 06/10/2021 Compr ehens jose d metab olic 1999 panel - Serum or Plasm a BUN 16 mg/dL low: 9.8mg/ dLhigh : 20.1mg /dL Not Available Not Available 08/16/2024 11:40:06/11/19 22 06/10/2021 Compr ehens jose d metab olic 1999 panel - Serum or Plasm a creatinine [mass/volume ] in serum or plasma 0.77 mg/dL low: 0.57mg /dLhig h: 1.11mg /dL Not Available Not Available 08/16/2024 11:40:06/11/19 22 06/10/2021 Compr ehens jose d metab olic 1999 panel - Serum or Plasm a glomerular filtration rate [volume rate/area] in serum, plasma or blood by creatinine-b ased formula (CKD-epi)/1. 73 sq M 84 text: >=90 mL/min /1.73 m2 low eGFR resul t was calcu lated using the updat ed CKD-E PI Creat in ine Equat ions (2020 ). Prior to go live 2021 the eGFR was calcu lated us Not Available Not Available 08/16/2024 11:40:06/11/19 22 06/10/2021 Compr ehens jose d metab olic 1999 panel - Serum or Plasm a sodium 142 mmol/ L low: 136mmo l/Lhig h: 145mmo l/L Not Available Not Available 08/16/2024 11:40:06/11/19 22 06/10/2021 Compr ehens jose d metab olic 1999 panel - Serum or Plasm a potassium 3.8 mmol/ L low: 3.5mmo l/Lhig h: 5.1mmo l/L Not Available Not Available 08/16/2024 11:40:06/11/19 22 06/10/2021 Compr ehens jose d metab olic 2000 panel - Serum or Plasm a chloride 102 mmol/ L low: 98mmol /Lhigh : 107mmo l/L Not Available Not Available 08/16/2024 11:40:06/11/19 22 06/10/2021 Compr ehens jose d metab olic 1999 panel - Serum or Plasm a CO2 29 mmol/ L low: 23mmol /Lhigh : 31mmol /L Not Available Not Available 08/16/2024 11:40:06/11/19 22 06/10/2021 Compr ehens jose d metab olic 1999 panel - Serum or Plasm a calcium 9.7 mg/dL low: 8.4mg/ dLhigh : 10.4mg /dL Not Available Not Available 08/16/2024 11:40:06/11/19 22 06/10/2021 [facility]ens jose d metab [facility] 1999 panel - Serum or Plasm a protein total 8.1 text: 6.4 - 8.3 gm/dL Not Available Not Available 08/16/2024 11:40:06/11/19 22 06/10/2021 [facility]ens jose d metab [facility] 1999 panel - Serum or Plasm a albumin 4.8 text: 3.2 - 4.6 gm/dL high Not Available Not Available 08/16/2024 11:40:06/11/19 22 06/10/2021 [facility]ens jose d metab ol 1999 panel - Serum or Plasm a bilirubin total 0.5 mg/dL low: 0.2mg/ dLhigh : 1.2mg/ dL Not Available Not Available 08/16/2024 11:40:06/11/19 22 06/10/2021 Compr ehens jose d metab olic 2000 panel - Serum or Plasm a alkaline phosphatase 87 U/L low: 40U/Lh igh: 150U/L Not Available Not Available 08/16/2024 11:40:06/11/19 22 06/10/2021 Compr ehens jose d metab olic 2000 panel - Serum or Plasm a AST 24 U/L low: 5U/Lhi gh: 34U/L Not Available Not Available 08/16/2024 11:40:06/11/19 22 06/10/2021 Compr ehens jose d metab olic 1999 panel - Serum or Plasm a ALT 23 U/L low: 0U/Lhi gh: 61U/L Not Available Not Available 08/16/2024 11:40:06/11/19 22 06/10/2021 Compr ehens jose d metab olic 1999 panel - Serum or Plasm a Unknown Analyte Lab Testin g perfor med at: [facility] [address] [place] [id number] Not Available Not Available 11:40:06/11/19 22 06/10/2021 Compr ehens jose d metab olic 1999 panel - Serum or Plasm a interpretati on and review of laboratory results Abnorm al Not Available Not Available 11:40:11/06/19 21 XR, lumba r spine [facility] [address] [facility] [address] [address] Examin ation: Lumbar Spine, 3 views Access ion: [id number] Exam Date/T ibrahima: 021 12:15 PM Reason For Exam: low back pian Mid and lower back pain radiat es down the left leg. Worsen ing recent ly. Compar amanda: None Techni que: AP, latera l, and spot lumbos acral latera l views of the lumbar spine are obtain ed. Findin gs: There are 5 nonrib -beari ng lumbar -type verteb ral bodies . Verteb ral body height s and alignm ent are preser stephanie. Multil evel endpla te degene rative change s are seen. Multil evel facet diseas e. [place] ing bowel gas patter n nonobs tructi ve. Visual ized sacral struts intact . SI joints unrema rkable . Small pelvic phlebo liths are noted. Partia l sacral izatio n on the left of the L5 verteb ral body level. No acute fractu re or disloc ation. No destru ctive osseou s lesion s. ===== IMPRES FAUSTO:= ==== 1. At least modera te multil evel degene rative change s of the lumbar spine with no acute osseou s abnorm ality Referr ed By: Geovanny wade Signed By: Benjy grider MD on 1:33 PM Interp reted By: Benjy grider MD, 1:32 PM [facility] [place], [address], 12/19/2020 13:10:54 11/06/19 21 XR, thora cic spine , 3 view [facility] [address] [facility] [place] [address] Examin ation: Thorac ic Spine 3 views Access ion: [id number] Exam date/t ibrahima: 12:15 PM Reason For Exam: acute low back pain Mid and lower back pain. Pain radiat es down the left leg. Recent ly worsen ing. Compar amanda: None Techni que: AP, latera l, and swimme r's views of the thorac ic spine were obtain ed. Findin gs: There are 12 rib-be aring thorac ic verteb ral bodies . Verteb ral body height s and alignm ent are preser stephanie. No compre ssion deform ities apprec iated. No destru ctive osseou s lesion s. No unexpe cted radiop aque foreig n bodies . ====== ==== IMPRES FAUSTO: ====== ===== 1. No acute osseou s abnorm alitie s by plain film evalua tion Referr ed By: Geovanny scott ly Signed By: Benjy grider MD on 1:33 PM Interp reted By: Benjy grider MD, 1:33 PM [facility] [place], [address], 12/19/2020 13:11:02 11/06/19 21 XR, sacru m + coccy x [facility] [place] [address] Examin ation: Sacrum coccyx Access ion: [id number] Exam Date/T ibrahima: 12:15 PM Reason For Exam: acute low back pain Mid and lower back pain that radiat es down the left leg. Pain is recent ly worsen ing. Compar amanda: None Techni que: AP and latera l view of the sacrum /coccy x was obtain ed. Findin gs: Bilate ral pelvic phlebo liths are noted. The visual ized sacral struts are intact . SI joints unrema rkable . At least modera te endpla te degene rative change s in the visual ized lower lumbar spine. No destru ctive osseou s lesion s. No fractu re or disloc ation. No unexpe cted radiop aque foreig n bodies . ===== IMPRES FAUSTO:= ==== 1. Promin ent degene rative change s in the visual ized lower lumbar spine with no acute osseou s abnorm alitie s. Referr ed By: Electr onical ly Signed By: Benjy grider MD on 1:34 PM Interp reted By: Benjy grider MD, 1:[address] [facility] Scheduling One [facility], [place], [address], 12/19/2020 13:10:45 01/10/20 21 XR, knee, 3 view [facility] [place] [address] Examin ation: Right knee 3 views Access ion: [id number] Exam date/t ibrahima: 4:53 PM Reason For Exam: Pain in right knee Compar amanda: Previo us studie s perfor med May 2020 Techni que: 3 views of the right knee were obtain ed. Findin gs: No acute bony abnorm alitie s. There are mild degene rative change s sugges brigitte in the anteri or joint and the medial compar tment. Mild irregu larity at the tendon insert ion to the superi or pole of the patell a unchan ged. Surrou nding soft tissue s are unrema rkable . =====I MPRESS ION:== === No acute bony abnorm alitie s. Mild enthes opathy sugges brigitte at the insert ion of the suprap atella r tendon to the patell a. ====== ====== ====== === Ordere d By: TIFFANIE Small onical ly Signed By: Lealnd Calloway MD on 6:05 PM Interp reted By: Leland Calloway MD, 6:04 PM [facility] [place], [address], 02/21/2021 15:04:01 01/10/20 21 XR, knee, 3 view [facility] [address] Examin ation: Left knee 3 views Access ion: [id number] Exam date/t ibrahima: 4:53 PM Reason For Exam: Pain in joint of left knee Compar amanda: No priors Techni que: 3 views of the left knee were obtain ed. Findin gs: No acute bony abnorm alitie s. Mild degene rative change s in the medial compar tment and the anteri or joint. No malali gnment . Surrou nding soft tissue s are unrema rkable . =====I MPRESS ION:== === Mild degene rative change s. No acute bony abnorm alitie s. ====== ====== ====== === Ordere d By: TIFFANIE Small onical ly Signed By: Leland Calloway MD on 6:06 PM Interp reted By: Leland Calloway MD, 6:[email or web address] [facility] Scheduling [address], [place], [address], 02/21/2021 15:03:52 02/11/19 MRI, lumba r spine , w/o contr ast [facility] [place] [address] EXAMIN ATION: MRI lumbar spine withou t contra st ACCESS ION: [id number] EXAM DATE/T IBRAHIMA: 02/11/19 10:25 AM REASON FOR EXAM: Chroni c low back pain, bilate ral leg pain COMPAR AMANDA: Lumbar spine radiog raphs TECHNI QUE: Mutipl spenser, multis equenc e MRI of the lumbar spine was obtain ed withou t the use of an IV contra st agent. FINDIN GS: There are 5 nonrib -beari ng lumbar -type verteb ral bodies . The lumbar verteb ral bodies and facets are well aligne d. The lumbar verteb ral body height s are preser stephanie. There is interv ertebr al disc height loss at L2-3, L3-4, L4-5 and to a lesser extent at L5-S1. Endpla te degene rative change s are seen at these levels . The conus medull alirio termin ates at L1-2, normal . There is a normal distri bution of the cauda equina within the thecal sac. No abnorm al prever tebral or parasp inal soft tissue swelli ng. L1-2: No signif icant spinal canal or neural forami nal stenos is. L2-3: Disc bulge impres sing the ventra l thecal sac. Mild to modera te facet hypert rophy, right greate r than left. Mild spinal canal stenos is. Mild right neural forami nal stenos is. No left neural forami nal stenos is. L3-4: Disc bulge impres sing the ventra l thecal sac. Mild to modera te facet hypert rophy. Mild bilate ral neural forami nal stenos is. L4-5: No signif icant spinal canal or neural forami nal stenos is. L5-S1: No signif icant spinal canal stenos is. Modera te facet hypert rophy. Modera te bilate ral neural forami nal stenos is. Promin ent epidur al fat within the anteri or greate r than quality control analyst ior thecal sac (best seen on series 7 image 7) =====I MPRESS ION:== === Mild to modera te multil evel lumbar spondy losis, as descri bed above. ====== ====== ====== === Ordere d By: TIFFANIE Small onical ly Signed By: Brian Dooley MD on 02/11/19 2:47 PM Interp reted By: Brian Dooley MD, 02/11/19 2:[email or web address] [facility] Scheduling One [facility], [place], [address], 03/05/2021 13:08:06 02/27/19 22 02/27/2021 MAMMO , scree stephanie, digit al, bilat eral No observ ation record ed. [facility] (Mammography) [address], [place], [address], 03/17/2021 22:30:24 08/17/19 25 08/16/2024 XR, knee No observ ation record ed. [facility] [address] [place] [address], [address], 08/17/2024 09:51:25 08/17/1908/16/2024 XR, knee No observ ation record ed. [facility] [address] [place] [address], [address], 08/17/2024 09:51:26 Result Notes Documentation Provider Name and Address Organization Details Recorded Time Xr, Lumbar Spine : [place] [address] Examination: Lumbar Spine, 3 views Exam Date/Time: 11/05/2020 12:15 PM Reason For Exam: low back pian Mid and lower back pain radiates down the left leg. Worsening recently. Comparison: None Technique: AP, lateral, and spot lumbosacral lateral views of the lumbar spine are obtained. Findings: There are 5 nonrib-bearing lumbar-type vertebral bodies. Vertebral body heights and alignment are preserved. Multilevel endplate degenerative changes are seen. Multilevel facet disease. Overlying bowel gas pattern nonobstructive. Visualized sacral struts intact. SI joints unremarkable. Small pelvic phleboliths are noted. Partial sacralization on the left of the L5 vertebral body level. No acute fracture or dislocation. No destructive osseous lesions. ===== IMPRESSION:===== 1. At least moderate multilevel degenerative changes of the lumbar spine with no acute osseous abnormality Referred By: Interpreted By: Charly Woo MD, 11/05/2020 1:32 PM Roberta Alvarez RN [facility] 12/19/2020 13:10:54 Xr, Thoracic Spine, 3 View : [place] [address] Examination: Thoracic Spine 3 views Exam date/time: 11/05/2020 12:15 PM Reason For Exam: acute low back pain Mid and lower back pain. Pain radiates down the left leg. Recently worsening. Comparison: None Technique: AP, lateral, and swimmer's views of the thoracic spine were obtained. Findings: There are 12 rib-bearing thoracic vertebral bodies. Vertebral body heights and alignment are preserved. No compression deformities appreciated. No destructive osseous lesions. No unexpected radiopaque foreign bodies. IMPRESSION: 1. No acute osseous abnormalities by plain film evaluation Referred By: Interpreted By: Charly Woo MD, 11/05/2020 1:33 PM Roberta Alvarez RN [facility], [facility] 12/19/2020 13:11:02 Xr, Sacrum + Coccyx : [place] [address] Examination: Sacrum coccyx Exam Date/Time: 11/05/2020 12:15 PM Reason For Exam: acute low back pain Mid and lower back pain that radiates down the left leg. Pain is recently worsening. Comparison: None Technique: AP and lateral view of the sacrum/coccyx was obtained. Findings: Bilateral pelvic phleboliths are noted. The visualized sacral struts are intact. SI joints unremarkable. At least moderate endplate degenerative changes in the visualized lower lumbar spine. No destructive osseous lesions. No fracture or dislocation. No unexpected radiopaque foreign bodies. ===== IMPRESSION:===== 1. Prominent degenerative changes in the visualized lower lumbar spine with no acute osseous abnormalities. Referred By: Interpreted By: Charly Woo MD, 11/05/2020 1:34 PM Roberta Alvarez RN [facility], [facility] 12/19/2020 13:10:45 Xr, Knee, 3 View : [place] [address] Examination: Right knee 3 views Exam date/time: 01/09/2021 4:53 PM Reason For Exam: Pain in right knee Comparison: Previous studies performed May 2020 Technique: 3 views of the right knee were obtained. Findings: No acute bony abnormalities. There are mild degenerative changes suggested in the anterior joint and the medial compartment. Mild irregularity at the tendon insertion to the superior pole of the patella unchanged. Surrounding soft tissues are unremarkable. =====IMPRESSION:===== No acute bony abnormalities. Mild enthesopathy suggested at the insertion of the suprapatellar tendon to the patella. Ordered By: TIFFANIE DHALIWAL Interpreted By: Leland Calloway MD, 01/09/2021 6:04 PM KAITLIN Villegas, [facility] 02/21/2021 15:04:01 Xr, Knee, 3 View : [place] [address] Examination: Left knee 3 views Exam date/time: 01/09/2021 4:53 PM Reason For Exam: Pain in joint of left knee Comparison: No priors Technique: 3 views of the left knee were obtained. Findings: No acute bony abnormalities. Mild degenerative changes in the medial compartment and the anterior joint. No malalignment. Surrounding soft tissues are unremarkable. =====IMPRESSION:===== Mild degenerative changes. No acute bony abnormalities. Ordered By: TIFFANIE DHALIWAL Interpreted By: Leland Calloway MD, 01/09/2021 6:06 PM Roberta Alvarez RN [facility], [facility] 02/21/2021 15:03:52 Mri, Lumbar Spine, W/o Contrast : [place] [address] EXAMINATION: MRI lumbar spine without contrast EXAM DATE/TIME: 02/11/2021 10:25 AM REASON FOR EXAM: Chronic low back pain, bilateral leg pain COMPARISON: Lumbar spine radiographs 10/28/2020 TECHNIQUE: Mutiplanar, multisequence MRI of the lumbar spine was obtained without the use of an IV contrast agent. FINDINGS: There are 5 nonrib-bearing lumbar-type vertebral bodies. The lumbar vertebral bodies and facets are well aligned. The lumbar vertebral body heights are preserved. There is intervertebral disc height loss at L2-3, L3-4, L4-5 and to a lesser extent at L5-S1. Endplate degenerative changes are seen at these levels. The conus medullaris terminates at L1-2, normal. There is a normal distribution of the cauda equina within the thecal sac. No abnormal prevertebral or paraspinal soft tissue swelling. L1-2: No significant spinal canal or neural [...] moderate multilevel lumbar spondylosis, as described above. Ordered By: TIFFANIE DHALIWAL Interpreted By: Brian Dooley MD, 02/11/2021 2:40 PM TIFFANIE DHALIWAL MD Attn: [employer],[address] [place], [address], [place] [facility] 03/05/2021 13:08:06 Problems Name Problem SNOMED Code Status Onset Date Resolution Date Notes Provider Name and Address Organization Details Recorded Time Rheumatoid arthritis 03678924 Active 2020 Mary [place]blood, [place] - [facility] 17:16:15 Essential hypertensio n 76898696 Active 2020 Mary [place] [facility] 17:16:22 Menopausal flushing 780436983 Active 2020 Mary Garn[place], [place] [facility] 17:16:30 History of SARS-CoV-2 [id number] 10699 Active 2020 Mary [place] [facility] 17:16:41 Asthma 061680134 Active 2020 Mary [place] [facility] 17:16:47 Gastroesoph ageal reflux disease 125601556 Active 2020 Mary [place] [facility] 17:16:51 Hiatal hernia 81000717 Active 2020 Mary Garn[place] [facility] 17:17:08 Polyp of colon 11100946 Active 2020 Mary [place] [facility] 17:17:16 Hypercholes terolemia 49293538 Active 2020 Mary Garnica [place], [place] [facility] 11:31:24 Problem Notes Documentation Provider Name and Address Organization Details Recorded Time Progress Note : [facility] [place] [address] [place] [address] Patient Name: PRESTON WALSH Date of : 1955 [facility] Rec #: [id number] Date of Service: 11/15/2020 Disch Date: 11/15/2020 Physical Therapy Evaluation Date: 11/15/2020 Patient Name: Preston Walsh : 1955 Diagnosis: The encounter diagnosis was Chronic bilateral low back pain with sciatica, sciatica laterality unspecified. AMB PT SUBJECTIVE EVAL: History of Present Illness: Mechanism of injury: Patient reports very chronic LBP with LT LE radiculopathy. Has decreased disc height and OA in her spine. Pain has worsened in the last year. Will have 2 weeks a month where she can barely move around and will need a walker to move around. Is having low back muscle spasms. Is having LT knee pain with any car travel longer than 30-60min. Gets bilateral calf cramping LT > RT, but doppler has ruled out blood clots. Wants to get an MRI, but says she has to try therapy first. Pain is the worst when she is getting up from lying down or when she sits for a long period of time. Is alternating ice and heat at home. Likes to ride her bike for exercise, but is afraid of increased pain. PMH: HTN, OA, Covid-19 Pain: Current pain ratin/10 At best pain ratin/10 At worst pain ratin/10 Quality: Radiating, tight and sharp Relieving factors: Ice, heat and rest Aggravating factors: Overhead activity, movement and lifting Progression: Worsening Objective RANGE OF MOTION: LUMBAR SPINE RIGHT LEFT FLEXION 25% WNL, painful sarthak low back - EXTENSION Unable to reach neutral, painful sarthak low back - SIDEBENDING 25% WNL, painful LT low back 10% WNL, painful LT low back *Denotes pain HIP RIGHT AROM LEFT AROM FLEXION 50% WNL 50% WNL *Denotes pain KNEE RIGHT AROM LEFT AROM FLEXION 100deg 100deg EXTENSION recurvatum recurvatum *Denotes pain STRENGTH: HIP RIGHT LEFT FLEXION 4-/5 3+/5* EXTENSION 3-/5 3-/5* ABDUCTION 3+/5 3/5* *Denotes pain KNEE RIGHT LEFT FLEXION 4/5 4/5* EXTENSION 4/5 4-5* *Denotes pain FLEXIBILITY: RIGHT LEFT HAMSTRINGS 25% WNL 25% WNL PIRIFORMIS Unable to test, knee pain Unable to test, knee pain HIP FLEXOR 50% WNL 50% WNL SPECIAL TESTING: SLUMP: (+) LT LE Gillet test: (+) LT SIJ ASLR: (+) sarthak LE Core strength: poor Increased muscle spasm bilateral lumbar paraspinals, LT glute, LT piriformis, LT ITB Posture: RT sided trunk lean with decreased weight bearing through LT pelvis and LT LE Gait: forward trunk flexion and RT trunk lean, decreased LT weight bearing. Increased bilateral knee recurvatum and lacking terminal dorsiflexion with ankle rocker. No device used today for mobility Physical Therapy Certification Form - Spine Treatment Today: Initial Evaluation completed with patient education on evaluation findings and plan of care HEP instruction: LTR, SKTC, continue with home modality, continue with stationary bike without resistance if it decreases pain Outcome tool: Oswestry back Score: 23/45 Timed Code Tx Minutes 10 Units 1 Total Tx Time 60 10 Therapeutic Exercise, eval Mod Therapy Diagnosis: Lumbago with Sciatica LT Muscle Spasm Back Muscle weakness (generalized-multiple) Radiculopathy Patient demonstrated Good understanding of above education and HEP. Rehab Potential Good Assessment: Patient is a 65 year old female presenting with chronic LBP with LT sided radiculopathy. Patient demonstrates difficulty with mobility, flexibility, and LE strength. She will benefit from skilled therapy to address said deficits for improved tolerance to mobility tasks, ADLs, and community ambulation Therapy Goals: (Goals to be met by d/c) 1. Increase ROM - lumbar AROM at least 50% WNL in all planes for improved tolerance to house cleaning and car rides 2. Independent HEP - to be finalized by d/c 3. Decrease pain - centralized radiculopathy and decreased LBP no greater than 3/10 with cleaning her house 4. Decrease muscle spasm/tissue tension - in low back and LT glutes 5. Increase strength - improved bilateral LE strength by at least 1/3 muscle grade for improved tolerance to transfers, walking, and standing Assessment Eval Complexity Personal Factor/Co-morbidities: 1-2 (Mod) Chronicity, Context of Patient Lives Examination of Body Systems Needing Addressed: 3 or more (Mod) LE Deficits, Muscle Tension, Trunk Deficits Clinical Presentation of Patient: Evolving (Mod) Evolving and changing characteristics - Peripheral Symptoms Clinical Decision Making: Mod Patient to be seen for: balance, body mechanics education, flexibilty, gait, home exercise program, instruction in self-help/behavior modification, manual therapy, modalities, neuromuscular reeducation, posture education, PRN, ROM, strengthening Next Visit: Review HEP and patient education. Begin SciFit, trunk mobility, hip and core strengthening, LE flexibility tasks. Manual/modalities PRN Frequency: up to 8 visits Therapist: ADELE TERAN PT, DPT Date: 11/15/20 Time: 8:13 AM Physician Signature: Date: Time: Patient Name: Preston Walsh : 1955 Signed by: ADELE TERAN 11/15/2020 09:01 AM TUCKER Tinsley [facility] 11/19/2020 14:09:49 Progress Note : [place] [address] Patient Name: PRESTON WALSH Date of : 1955 Med Rec #: [id number] Date of Service: 11/19/2020 Disch Date: Physical Therapy Visit Note: Patient Name: Preston Walsh Diagnosis: Chronic bilateral low back pain with sciatica, sciatica laterality unspecified [M54.40, G89.29] Personal Protective Equipment PPE Used During Visit: Therapist wore medical grade mask throughout session, Patient wore mask throughout session SUBJECTIVE Therapy Visit Treatment Day: 2 Total Approved Visits: 8 Diagnosis: LBP, LT radiculopathy Referring Provider: Nahun Precautions: HTN, OA Date of Injury: chronic Subjective Note: Patient reports her pain is really flared up today, she's been doing a lot of things around her house today. Compliance to Home Program: daily Reported Falls since last visit: no falls Medications changes since last visit : no changes Pain Current Location of Pain: LT LE, back Current Pain Level: 8-9 OBJECTIVE Treatment provided today: Therapeutic Exercise - 95256 Number of Minutes - 47118: 20 Exercise: SciFit seat x 5 min Exercise: 3 way bangladeshi ball roll outs x 10 reps each Exercise: Supine DKTC/LTR with 55cm ball x 10 reps Manual Therapy - 47919 Number of Minutes - 19146: 10 Instrument Assisted STM: Theraroller to LT glute, HS, quad, pirifromis, ITB with patient in RT sidelying with pillow between knees for decreasing muscle tension and pain Education Topic: Recommended pacing herself with household tasks and allowing herself to sit and rest during the day ASSESSMENT Assessment Note: Patient has increased difficulty with walking into clinic due to pain levels today. Shortened treatment time due to high pain levels and MD appt at the hospital after therapy and worried about long walk in from the parking lot PLAN Plan Next Visit Plan: Add clamshells, reverse clamshells, ankle pumps with LE 90/90 on bangladeshi ball, core pulls, thread the needle Total Time Total Time in Minutes: 30 Timed Code Treatment Minutes : 30 Signed by: ADELE TERAN 11/19/2020 2:58 PM TUCKER Tinsley - [facility] 11/25/2020 14:34:04 Progress Note : [place] [address] Patient Name: PRESTON WALSH Date of : 1955 Med Rec #: [id number] Date of Service: 12/16/2020 Disch Date: Physical Therapy Visit Note: Patient Name: Preston Walsh Diagnosis: Chronic bilateral low back pain with sciatica, sciatica laterality unspecified [M54.40, G89.29] Personal Protective Equipment PPE Used During Visit: Therapist wore medical grade mask throughout session, Patient wore mask throughout session SUBJECTIVE Therapy Visit Treatment Day: 8 Total Approved Visits: 8 Diagnosis: LBP, LT radiculopathy Referring Provider: Nahun Precautions: HTN, OA Date of Injury: chronic Subjective Note: See re-eval Reported Falls since last visit: none Medications changes since last visit : no changes OBJECTIVE Treatment provided today: Objective Objective Measurement: see re-eval Neuromuscular Re-education - 92179 Number of Minutes - 69962: 15 Intervention: fitted st cane to correct height and education about correct gait sequence given her Left LE pain Intervention: review of prior HEP, issued sade Moore, progressed HEP to include L LE slump tensioner Therapeutic Exercise - 97366 Number of Minutes - 04355: 15 Exercise: RE-EVALUATION Education Was Education Provided: Yes Topic: HEP, findings of re-eval, discussion of return to MD/ future plan of care Recipient: Patient Method: Demonstration, Verbal, Written, Return Demonstration Response: Asked questions, Demonstrates adequately, Verbalized understanding Barriers: None ASSESSMENT Assessment Note: see re-eval Response to Treatment : patient requested no treatment this date, as she did not want to re-agggravate her pain Continue on Functional Deficit of: LB pain PLAN Plan Changes: re-eval, progressed HEP Next Visit Plan: DC OP PT, return to MD. Total Time Total Time in Minutes: 30 Timed Code Treatment Minutes : 30 Signed by: ALEXANDER COSTA 12/16/2020 08:58 AM TUCKER Tinsley [facility] 12/19/2020 23:11:02 Progress Note : [facility] [place] [address] Patient Name: PRESTON WALSH Date of : 1955 Med Rec #: [id number] Date of Service: 12/16/2020 Disch Date: 12/16/2020 [facility] [address] [place] [id number] Dept: [phone] Dept Physical Therapy Discharge Summary Patient name: Preston Walsh : 1955 Date: 12/16/20 Diagnosis (medical/treatment): The encounter diagnosis was Chronic bilateral low back pain with sciatica, sciatica laterality unspecified. Date of reporting period from Date: 11/15/2020 to 12/16/20 Visits: 8 Subjective: Pain Level: 5/10 at present. Pain range over the last week: 5-10/10. Pain occurs B low back and into B Anterior pelvis and pain radiates to left leg. Left leg pain starts at back and radiates to left posterior thigh, the wraps around left leg to knee and lateral lower leg to ankle. Current Function: States she has had increased pain over the last week. Reports she traveled to [place] recently to visit her very ill father and has had increased pain since then. States over the course of PT this last month, she has loosened up but her pain has not gotten any better. States she is a little better today but she does not want to do any therapy because she does not want to aggravate it. She has been using cane, back brace, stretches from PT. States she went to grocery store this weekend for just a few things and it really caused her increased pain. Over the recent past, her pain has gone from intermittent to constant pain. Patient Goals: 1. Decreased pain NOT MET Objective Data: Eval Status (11/15/20) Current Status (12/16/20) RANGE OF MOTION: LUMBAR SPINE RIGHT LEFT FLEXION 25% WNL, painful sarthak low back - EXTENSION Unable to reach neutral, painful sarthak low back - SIDEBENDING 25% WNL, painful LT low back 10% WNL, painful LT low back RANGE OF MOTION: LUMBAR SPINE RIGHT LEFT FLEXION 75% WNL, painful sarthak low back - EXTENSION 15% increased low back pain - SIDEBENDING 25% WNL, painful low back 25% WNL, painful low back Rotation B 50% increased B low back pain, Low back oswestry: 23/45 Low back oswestry: 25/50 STRENGTH: HIP RIGHT LEFT FLEXION 4-/5 3+/5* EXTENSION 3-/5 3-/5* ABDUCTION 3+/5 3/5* *Denotes pain KNEE RIGHT LEFT FLEXION 4/5 4/5* EXTENSION 4/5 4-5* *Denotes pain STRENGTH: HIP RIGHT LEFT FLEXION 4-/5 3+/5* EXTENSION 3-/5 3-/5* ABDUCTION 3+/5 3+/5* *Denotes pain KNEE RIGHT LEFT FLEXION 4/5 4/5 EXTENSION 4/5 4-5 Ankle DF B 4+ PF B at least 2+/5(NT in standing) Increased muscle spasm bilateral lumbar paraspinals, LT glute, LT piriformis, LT ITB Increased muscle tension bilateral SI joints, LT glute, LT piriformis, LT ITB Therapy Goals: (Goals to be met by d/c) 1. Increase ROM - lumbar AROM at least 50% WNL in all planes for improved tolerance to house cleaning and car rides PART MET 2. Independent HEP - to be finalized by d/c PART MET 3. Decrease pain - centralized radiculopathy and decreased LBP no greater than 3/10 with cleaning her house NOT MET 4. Decrease muscle spasm/tissue tension - in low back and LT glutes PART MET 5. Increase strength - improved bilateral LE strength by at least 1/3 muscle grade for improved tolerance to transfers, walking, and standing NOT MET Assessment Statement: Ms. Walsh initially had fair tolerance to PT but since a recent car trip to [place], she has had marked increased pain that severely limits her tolerance to functional mobility. Her pain has limited her tolerance to gait, ADLs, sleeve bottom feller and grocery shopping despite her use of St. Cane, back brace, Home exercises and home modalities. Her Left LE radicular pain is of particular concern and seems most prevalent in the L4 dermatome. She does exhibit weakness and will eventually benefit from PT for strengthening but she is currently unable to tolerate due to pain levels. Recommend patient return to MD for follow up for more medical testing and/or referral to pain management. Recommendations: D/C from OPPT with low level home exercise program emphasizing spinal and nerve mobility. Therapist: ALEXANDER COSTA, PT Date: 12/16/20 Time: 8:03 AM I certify that the above rehabilitative services are required, authorized, and reviewed. Physician signature: Date: Time: Patient Name: Preston Walsh : 1955 Signed by: ALEXANDER COSTA 12/16/2020 08:57 AM Mary youngblood [facility] 12/29/2020 18:04:54 Progress Note : Patient Name: PRESTON WALSH Date of : 1955 [facility] Rec #: [id number] Date of Service: 02/10/2021 Disch Date: 02/10/2021 Office Visit Reason for Visit: New Patient (Lt Knee ) History of Present Illness: HPI Preston Walsh presents for left knee pain. She is an extremely pleasant 65-year-old female. She presents today for increasing left knee pain over the past year. She says that before Covid she was very active and she really had no knee pain during that time. Since Covid happened she has stopped exercising and noticed increasing left knee pain. She also says that she has gained 20 to 25 pounds during that time. She did have a history of a meniscal debridement in March 2017 in [facility]. She says that during that time she was having pretty severe knee pain that got better after surgery. She says that she normally likes to be walking at the [facility] but is not been able to do this for a few months. She does have a medical history significant for rheumatoid arthritis on hydroxychloroquine as well as osteopenia. She does not smoke. She has a history also high blood pressure and GI ulcer. Assessment: Left knee OA Recommendations and Plan: New Patient (Lt Knee ) I talked her today about her x-ray images. I think most of her problems today stem from her inactivity from combination of Covid and her weight gain. I like for her to start physical therapy and I did write her prescription for this. She was to try water therapy which I think is reasonable. Also gave her a prescription for Voltaren gel due to her history of a GI ulcer. She will follow-up with me in about 5 or 6 weeks for reevaluation, no x-rays needed ROS: ROS PE: Physical Exam Constitutional: she appears well-developed and well-nourished. HENT: Head: Normocephalic and atraumatic Eyes: EOM are normal. Neck: Neck Supple Skin: Warm and dry Pulmonary/Chest: Effort normal. No respiratory distress. Neurological: she is alert and attentive. Speech is clear, coherent, and not pressured. Psychiatric: she has a normal mood and affect. Cardiovascular: 2+ pedal pulse in her left foot Ortho: She has no significant knee effusion on her knees today. She is tender to palpation along the left knee medial joint line. Right knee is little tender to palpation on the medial joint line as well. Passive range of motion of her bilateral knees 0 degrees extension to more than 120 flexion. No pain or laxity with valgus varus stress of her bilateral knees. 5 out of 5 strength knee flexion/extension bilaterally. Hips are without pain internal or external rotation. No motor deficits distally. Imaging: XR KNEE LT 3V Narrative: Examination: Left knee 3 views Exam date/time: 01/09/2021 4:53 PM Reason For Exam: Pain in joint of left knee Comparison: No priors Technique: 3 views of the left knee were obtained. Findings: No acute bony abnormalities. Mild degenerative changes in the medial compartment and the anterior joint. No malalignment. Surrounding soft tissues are unremarkable. Impression: =====IMPRESSION:===== Mild degenerative changes. No acute bony abnormalities. Ordered By: TIFFANIE DHALIWAL Interpreted By: Leland Calloway MD, 01/09/2021 6:06 PM XR KNEE RT 3V Narrative: Examination: Right knee 3 views Exam date/time: 01/09/2021 4:53 PM Reason For Exam: Pain in right knee Comparison: Previous studies performed May 2020 Technique: 3 views of the right knee were obtained. Findings: No acute bony abnormalities. There are mild degenerative changes suggested in the anterior joint and the medial compartment. Mild irregularity at the tendon insertion to the superior pole of the patella unchanged. Surrounding soft tissues are unremarkable. Impression: =====IMPRESSION:===== No acute bony abnormalities. Mild enthesopathy suggested at the insertion of the suprapatellar tendon to the patella. Ordered By: TIFFANIE MARY ISRA Interpreted By: Leland Calloway MD, 01/09/2021 6:04 PM Medications: Outpatient Medications Marked as Taking for the 02/10/21 encounter (Office Visit) with FILOMENA Higgins Medication Sig Dispense Refill * ACETAMINOPHEN EXTRA STRENGTH 500 MG tablet * Ascorbic Acid 1000 MG Tab Take 1,000 mg by mouth daily. * atorvastatin 10 MG tablet Take 1 tablet by mouth daily. * cetirizine 10 MG chewable tablet Chew 10 mg by mouth daily. * Cholecalciferol 50 MCG (2000 UT) Cap Take 1,000 Units by mouth daily. * cyclobenzaprine 10 MG tablet Take 10 mg by mouth 3 (three) times daily as needed for Muscle Spasms. * diclofenac sodium 1 % gel Apply 4 g topically 2 (two) times a day. 350 g 0 * Doxylamine Succinate, Sleep, (UNISOM SLEEPTABS OR) Take 1 tablet by mouth nightly as needed (sleep). * hydroxychloroquine 200 MG tablet Take 200 mg by mouth 2 (two) times daily. * ibuprofen 200 MG tablet Take 200 mg by mouth every 6 (six) hours as needed for Pain. * lisinopril-hydroCHLOROthiazi de 20-25 MG tablet Take 1 tablet by mouth daily. * omeprazole 20 MG capsule Take 20 mg by mouth daily. * Turmeric (QC TUMERIC COMPLEX) 500 MG Cap Take 500 mg by mouth daily. * vitamin E 180 MG (400 UNIT) capsule Take by mouth daily. * WIXELA INHUB 250-50 MCG/DOSE inhaler 2 (two) times daily. * zinc sulfate 220 MG capsule Take 50 mg by mouth daily. Allergies: Allergies Allergen Reactions * Tramadol Rash and Itching Medical History: History reviewed. No pertinent past medical history. Surgical History: Past Surgical History: Procedure Laterality Date * BREAST LUMPECTOMY Left * BREAST LUMPECTOMY Right * FOOT Left Bunion removal, hammertoe removal * FOOT Right 2020 bunion, hammertoe removed * HYSTERECTOMY * KNEE ARTHROSCOPY Left meniscus tear repair Social History: Social History Tobacco Use * Smoking status: Former Smoker Quit date: 1996 Years since quittin.0 * Smokeless tobacco: Never Used * Tobacco comment: Former, Quit Vaping Use * Vaping Use: Never used Substance Use Topics * Alcohol use: Yes Comment: Occasional * Drug use: Never Family History: Family History Family history unknown: Yes VITALS: Vitals: 02/10/21926 Patient Position: Sitting BP Location: Right arm Cuff size: Adult Large BP: 138/84 Pulse: 83 Estimated BMI Today: Estimated body mass index is 35.63 kg/mA? as calculated from the following: Height as of this encounter: 5' 4 (1.626 m). Weight as of this encounter: 94.2 kg (207 lb 9.6 oz). Portions of this note were dictated using [employer] speech recognition software. Occasional wrong word or sound-alike substitutions may have occurred due to the inherent limitations of voice recognition software. Please read the chart carefully and recognize, using context, where the substitutions may have occurred. Procedures FILOMENA MYRICK 02/10/2021 Signed by: NAILA GUTIERRES 02/10/2021 3:45 PM Mary youngblood [facility] 02/11/2021 09:25:34 Procedures Surgical History Date Name Laterality Status Provider Name and Address Organization Details Recorded Time ligation of bilateral fallopian tubes completed Mary CEBALLOS [facility] 05/02/2020 14:58:24 lumpectomy of breast completed Mary Gross [facility] 05/02/2020 14:58:37 Xcapsl ctrc rmvl cplx wo ecp completed Mary Gross [facility] 05/02/2020 14:58:44 excision of bunion completed Mary Gross [facility] 05/02/2020 14:59:11 Imaging Results None recorded. Procedure Notes None recorded. Medical Equipment None Reported. Allergies No known drug allergies Medications Name Sig Start Date Stop Date Status Note LastModified by Organization Details LastModified Time cyclobenzap rine 10 mg tablet TAKE 1 TABLET BY MOUTH THREE TIMES A DAY NEEDED FOR MUSCLE SPASMS active Not Available Not Available No t Available amoxicillin 500 mg capsule TAKE 1 CAPSULE BY MOUTH EVERY 8 HOURS FOR 5 DAYS 05/02 completed Not Available Not Available Not Available atorvastati n 10 mg tablet TAKE 1 TABLET BY MOUTH EVERY DAY active Not Available Not Available No t Available lisinopril 20 mg-hydrochl orothiazide 12.5 mg tablet TAKE 1 TABLET BY MOUTH EVERY DAY active Not Available Not Available No t Available ibuprofen 800 mg tablet TAKE 1 TABLET BY MOUTH THREE TIMES A DAY NEEDED 05/02 completed Not Available Not Available Not Available benzonatate 200 mg capsule TAKE 1 CAPSULE BY MOUTH 3 TIMES A DAY NEEDED FOR COUGH 05/02 completed Not Available Not Available Not Available meloxicam 15 mg tablet TAKE 1 TABLET BY MOUTH EVERY DAY NEEDED FOR PAIN active Not Available Not Available No t Available prednisone 20 mg tablet TAKE 1 TABLET BY MOUTH TWICE DAILY FOR 5 DAYS active Not Available Not Available No t Available triamcinolo ne acetonide 0.5 % topical ointment APPLY THIN LAYER TOPICALLY TO THE AFFECTED AREA IN THE MORNING AND IN THE EVENING active Not Available Not Available No t Available ciprofloxac in 500 mg tablet TAKE 1 TABLET BY MOUTH TWICE A DAY FOR 7 DAYS 05/02 completed Not Available Not Available Not Available omeprazole 40 mg capsule,del ayed release active Not Available Not Available Not Available acetaminoph en 500 mg tablet TAKE 2 TABLETS BY MOUTH EVERY 6 HOURS NEEDED. active Not Available Not Available No t Available amoxicillin 875 mg tablet 06/18 completed Not Available Not Available Not Available methotrexat e sodium 2.5 mg tablet TAKE 3 TABLETS BY MOUTH ONCE A WEEK 02/25 completed Not Available Not Available Not Available meclizine 25 mg tablet Take 1 tablet 3 times a day by oral route as needed for 20 days. active Not Available Not Available No t Available omeprazole 20 mg capsule,del ayed release active Not Available Not Available Not Available lisinopril 20 mg-hydrochl orothiazide 25 mg tablet TAKE 1 TABLET BY MOUTH DAILY active Not Available Not Available No t Available folic acid 1 mg tablet TAKE 1 TABLET BY MOUTH EVERY DAY active Not Available Not Available No t Available zinc 50 mg tablet Take by oral route. 07/18 completed Not Available Not Available Not Available gabapentin 100 mg capsule TAKE 1 CAPSULE BY MOUTH EVERYDAY AT BEDTIME 05/02 completed Not Available Not Available Not Available hydroxychlo roquine 200 mg tablet TAKE 1 TABLET BY MOUTH TWICE DAILY active Not Available Not Available No t Available methylpredn isolone 4 mg tablets in a dose pack FOLLOW PACKAGE DIRECTION S active Not Available Not Available No t Available albuterol sulfate HFA 90 mcg/actuati on aerosol inhaler INHALE 2 PUFFS INTO THE LUNGS EVERY 6 HOURS NEEDED FOR WHEEZING active Not Available Not Available No t Available ipratropium bromide 21 mcg (0.03 %) nasal spray active Not Available Not Available Not Available Vitamin C active Not Available Not Fatuma ilable Not Available vitamin E 07/18 completed 180 mg 400 IU Not Available Not Available Not Available ibuprofen 07/18 completed Not Available Not Available Not Available Tylenol 11/19 completed Not Available Not Available Not Available Vitamin D3 active 1000 U Not Available Not Available Not Available diclofenac 1 % topical gel APPLY 2 GRAMS TO THE AFFECTED AREA(S) BY TOPICAL ROUTE 4 TIMES PER DAY active Not Available Not Available No t Available Zyrtec 10 mg capsule Take by oral route. active Not Available Not Available No t Available Breo Ellipta 100 mcg-25 mcg/dose powder for inhalation INHALE ONE INHALATIO N BY MOUTH EVERY 24 HOURS 05/02 completed Not Available Not Available Not Available Unisom (diphenhydr amine) active Not Available Not Available Not Available Wixela Inhub 250 mcg-50 mcg/dose powder for inhalation USE 1 INHALATIO N BY MOUTH TWICE DAILY . RINSE AND SPIT AFTER USE. active Not Available Not Available No t Available Wixela Inhub 100 mcg-50 mcg/dose powder for inhalation INHALE 1 INHALATIO N EVERY 12 HOURS RINSE AND SPIT AFTER EACH USE. 05/02 completed Not Available Not Available Not Available Vitals Date Recorded Body height Body mass index (BMI) Body weight Oxygen saturation Oxygen saturation in Arterial blood by Pulse oximetry Heart rate Body temperature Respiratory rate Systolic And Diastolic Provider Name and Address Organization Details Last Updated DateTime 2 162.56 cm 35.7 kg/m2 50864.2 1 g 100 % 100 % 81 /min 98.3 [degF] 14 /min 106/60 mm[Hg] Tristen Melo CMA [place] [facility] 2 16:49:13 Date Recorded Body weight Heart rate Body temperature Systolic And Diastolic Provider Name and Address Organization Details Last Updated DateTime 08/16/2024 87469.05 g 65 /min 96.2 [degF] 155/73 mm[Hg] Imelda Ray MA [facility] 08/16/2024 11:45:33 Date Recorded Body height Body mass index (BMI) Body weight Heart rate Oxygen saturation Oxygen saturation in Arterial blood by Pulse oximetry Body temperature Systolic And Diastolic Provider Name and Address Organization Details Last Updated DateTime 1 162.56 cm 34.7 kg/m2 99069.7 1 g 80 /min 97 % 97 % 98.3 [degF] 110/52 mm[Hg] Tristen Melo CMA [facility] 11:49:36 Date Recorded Body height Body mass index (BMI) Body weight Body temperature Heart rate Oxygen saturation Oxygen saturation in Arterial blood by Pulse oximetry Systolic And Diastolic Provider Name and Address Organization Details Last Updated DateTime 1 162.56 cm 35.1 kg/m2 97311.9 9 g 98.3 [degF] 80 /min 95 % 95 % 114/54 mm[Hg] Jenelle Aceves MA [facility] 17:14:09 Date Recorded Body height Body mass index (BMI) Body weight Oxygen saturation Oxygen saturation in Arterial blood by Pulse oximetry Heart rate Body temperature Respiratory rate Systolic And Diastolic Provider Name and Address Organization Details Last Updated DateTime 1 162.56 cm 35 kg/m2 28929.8 4 g 97 % 97 % 76 /min 98.4 [degF] 14 /min 126/60 mm[Hg] Tristen Melo CMA [facility] 16:26:02 Social History Question Answer Notes LastModified by Organizat ion Details LastModified Time Tobacco Smoking Status Former Smoker 23 years ROSENDA Oliva, [facility] 05/02/2020 14:31:51 Do You Have An Advance Directive? No Information not available 05/02/2020 How Many Years Have You Consumed Alcohol? 30 Information not available 05/02/2020 In The 14 Days Before Symptom Onset, Have You Had Close Contact With A Laboratory-confir med COVID-19 While That Case Was Ill? No Information not available 05/02/2020 In The 14 Days Before Symptom Onset, Have You Had Close Contact With A Person Who Is Under Investigation For COVID-19 While That Person Was Ill? No Information not available 05/02/2020 Have You Been To An Area Known To Be High Risk For COVID-19? No Information not available 05/02/2020 What Was The Date Of Your Most Recent Tobacco Screening? 02/25/2021 [email or web address] Information not available 02/25/2021 What Is Your Relationship Status? Information not available 05/02/2020 Do You Have Smoke And Carbon Monoxide Detectors In Your Home? Yes Information not available 05/02/2020 At What Age Did You Start Smoking Tobacco? 18 Information not available 05/02/2020 Are You Passively Exposed To Smoke? No Information no t available 05/02/2020 Sex: Unknown Functional Status Question Answer Note LastModified by Organizat ion Details LastModified Time Do you use any illicit or recreational drugs? No Information not available 05/02/2020 Do you or have you ever used any other forms of tobacco or nicotine? No Information not available 05/02/2020 What is your level of alcohol consumption? Occasional Information not available 05/02/2020 Are you currently employed? No Information not available 05/02/2020 Mental Status None recorded. Family History Nothing Reported. Medical History No medical history recorded. Gynecological History Statement/Question Response Menses Monthly N STIs/STDs N Current Control Method Tubal Ligat ion Obstetrics History GPAL:G 0 P 0 0 0 0 Immunizations Vaccine Type Date Status Note Provider Nam e and Address Organization Details Recorded Time COVID-19, mRNA, LNP-S, PF, 30 mcg/0.3 mL dose 03/21/2020 completed Mary youngblood [place] [facility] 02/13/2021 12:50:47 COVID-19, mRNA, LNP-S, PF, 30 mcg/0.3 mL dose 04/13/2020 completed [place]blood, [place] [facility] 02/13/2021 12:51:33 COVID-19, mRNA, LNP-S, PF, 30 mcg/0.3 mL dose 11/13/2020 completed Mary Garnica [place], [place] [facility] 02/13/2021 12:53:01 Influenza, high-dose, quadrivalent, PF 11/05/2020 completed Tristen Melo C[place] [facility] 11/05/2020 12:44:33 Past Encounters Encounter ID Performer Location Encounter Start Date Encounter Closed Date Diagnosis/Indication Diagnosis SNOMED-CT Code Diagnosis ICD10 Code Diagnosis IMO Codes Diagnosis Note [id number] Alber Delgado MD [place] [address] [address] 05/02/2020 14:17:46 05/03/2020 08:02:44 Gastroesophageal reflux disease without esophagitis 960400592 K21.9 establishe d with GI. Needs referral to GI in close proximity. Referral placed today. Rheumatoid arthritis 698 48950 M06.9 Chronic, stable Establishe d with Rheumatolo gy. Needs new referral. Obesity 403332329 E66.9 bmi 33.6 Will check A1C CMP CBC Lipid panel [id number] Ge Deng MD [place] [address] [address] [facility] [address] [place] [address] 05/17/2020 10:42:14 05/20/2020 14:52:08 Hypercholesterolemia 39337810 E78.00 Currently on atorvastat in 10 mg for the past two weeks. Patient tolerating well and denies side effects of medication . Will obtain repeat lipid panel at 8 weeks of therapy ~07/04. LFT's normal at baseline. Will recheck LFT's at 12 weeks of therapy ~08/04. Obesity 697823190 E66.9 BMI 33.6 Encouraged exercise 30-60 minutes a day. Patient has started walking. Memory lapses 040889903 R41.3 Memory lapses for about a year. MMSE 30 today, WNL. Check B12 and folate. Will continue to monitor for any changes. Swelling o f knee joint 769959087 M25.469 RT knee effusion XR rt knee ordered today [id number] MD Mirta Murray [address] [address] 06/18/2020 16:53:46 06/20/2020 09:16:39 Essential hypertension 00368368 I10 Chronic, stable -Continue Lisinopril 20mg-HCTZ 25 mg -Recent CMP wnl -order placed for urine alb/cr Asthma 782275387 J45.90 9 No nighttime symptoms. Not using inhalers correctly. Using albuterol before onset of symptoms. Instructed on proper use. RTC 1 month to discuss asthma. [id number] Lidia Rock MD [facility] [address] [address] 07/18/2020 16:17:29 07/19/2020 09:50:13 Essential hypertension 38784534 I10 Chronic, stable -Continue Lisinopril 20mg-HCTZ 25 mg -Recent CMP wnl Patellofem oral syndrome of right knee 7142772052 101907 M22.2X1 Symptoms likely related to PFS of right knee. Recent x-ray of right knee unremarkab le. Gave patient pfs exercises. Referred to PT. Gave voltaren gel. Hyperlipidemia 36845071 E78.5 ASCVD risk 8.1% with LDL of 123. Due to patient's risk factors, statin therapy is recommende d at this time. Continue atorvastat in. Patient counseled on potential side effects and monitoring . RTC 1 month for lipid panel. [id number] Gayle branch MD [facility] [address] [address] 08/22/2020 09:26:14 08/23/2020 10:22:51 Traumatic brain injury 534471836 S06.9X0A AcuteHeada benton, blurry vision, and intermitte nt disequilib rium s/p fall suspected to be due to mild TBI. Less likely hematoma or CVA based on unremarkab le neurologic exam.- Tylenol and ibuprofen PRN for pain- Advised to avoid biking or other activities that would put her at risk for repeat head trauma for at least 2 weeks- Provided ED return precaution s- Follow up if concerns arise History of osteopenia 47 9097987 Z87.39 [id number] TIFFANIE DHALIWAL MD [place] [address] [address] 11/05/2020 11:31:21 11/05/2020 21:31:25 Acute low back pain 251710909 M54.5 Continue tylenol, ice, heating pad-XR T L S spine ordered-ty lenol 1g q6h prn Essential hypertension 44564359 I10 Chronic, stableInit ial BP today 110/52. BP this morning 110/60 per pt report.Con tinue Lisinopril 20 mg-HCTZ 25 mgCheck BP at home, bring log in 2 wks. May need to decrease dosage at that time. Knee pain 52116633 M25.5 69 X-rays unremarkab leContinue knee exercises, voltaren gel. Sciatica 38398688 M54.30 Possibly developing sciatica. No alarm symptoms or signs of cord compressio n. Images ordered (see above). PT referral placed. Administra tion of influenza vaccine 43295121 Z23 Pt requesting flu vaccine today. Previously had rash on arm after administra tion, but no anaphylaxi s. Administer ed and patient tolerated well. Patient called by Tristen Melo CMA around 12:46pm. Patient states that she is doing well and not experienci ng any adverse effects. [id number] GOMEZ ALEMAN MD [address] [address] 11/19/2020 16:54:13 11/20/2020 08:45:56 Essential hypertension 98647478 I10 Chronic, stable BP today 114/54. BP log [facility] with office numbers. Continue Lisinopril 20 mg-HCTZ 25 mg one tablet once daily.RTC 1-2 weeks with BP cuff and log. Low back pain 731736619 M54.50 Chronic, stable. MSK, Possible sciatica component. No alarm symptoms. PT referral previously placed.Cur rently using tylenol 500 mg PRN. May trial Gabapentin if symptoms worsen.Con tinue heat therapy and PT. [id number] TIFFANIE DHALIWAL MD [place] [address] [address] 01/09/2021 16:16:56 01/13/2021 14:35:26 Pain of left knee joint 3825741917 96794 M25.562 - Pt presents for eval of bilateral knee pain- Hx of meniscal injury w/ repair several years ago- No recent trauma or injury but pt notes persistent pain with ROM- Pt would like XR and referral to for further treatment and eval Pain of ri ght knee joint 1855845315 07962 M25.561 Lumbar radiculopathy 128 922883 M54.16 - Pt states she has chronic low back pain, recent XR in 10/2020 were negative for fracture- Pt completed PT program for sciatica w/ no improvemen t in numbness/t ingling or pain- Has hx of several slipped discs, now with worsening parasthesi as and radiculopa thy- Will obtain MRI spine and refer to NSGY pending results 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 Patient has started walking for exercise. Lumbar spondylosis 10468 0009 M47.896 Chronic, stableRece nt MRI confirming . No red flag symptoms.C ontinue pain control, stretches Pain of bi lateral knee joints 2951066185 05741 M25.561 M25.562 Chronic, stable. x-ray left knee showing degenerati ve changes.F/ U with sports med.Contin ue pain control: tylenol, voltaren gel, water aerobicsCo nsider steroid injections in the future Neuroma of hand 24843788 11 9105 D36.12 Surgery scheduled. Excision of neuroma. Patient to follow up with hand surgeon at [facility]. Bilateral tinnitus 83523 53090 102 H93.13 May be medication related due to HCQ vs Meniere's vs thyroid dysfunctio n vs B12 abnormalit yLabs ordered to check B12 Folate Mg BMP A1cRx sent for Meclizine for dizzinessF /U in clinic in 3 weeks to re-assessC onsider audiology referral [id number] Andrew Gomez MD [facility] [address] [place] [address],[address] [place] [address] 08/16/2024 10:57:41 08/16/2024 17:09:16 Arthritis of left knee joint 6069506639 656177 M17.12 082406 Pes anseri nus bursitis of right knee 6490416811 216811 M70.51 [id number] Xrays today show knee implants in stable position. I will start patient on meloxicam. She is to ice/elevat e as needed. Plan on PT referral if symptoms worsen Health Concerns Section Related Observation LastModified by Organization Detai ls LastModified Time None Recorded Concern Status LastModified by Organization Details LastModified Time None Recorded Advance Directives Directive N: Payers Insurance Date Sequence Insurance Name Policy Number Policy Bajwa Covered Member ID Bajwa Member ID Guarantor Name 08/14/2024 1 [facility] (MEDICARE REPLACEMENT/A DVANTAGE - HMO) [id number] Preston Walsh [id number] Preston Walsh Notes Date Note Type Note Provider Name and Address Organization Details Recorded Time 11/05/2020 text/html ROS as noted in the HPI Patient here to discuss back pain. Years ago had X-ray showing collapsed disc. Over the years back pain off and on. This year it's been consistent. This month has been the worst. Ice/heat.Ibuprofen 600mg, flexeril. Worse when she's sitting, When she gets up from sitting the pain is worse, stayed all evening and rest of the day. This morning pain is better. Left knee meniscus repair 2018. Now left knee bothering her more.No red flag symptoms. Denies CP, dyspnea, fevers, chills, abdominal pain, n/v/d, constipation, hematuria, melena, numbness/tingling. TIFFANIE DHALIWAL MD Attn: Accounting[address] [facility], [place], [address], [facility] 11/05/2020 23:23:32 11/19/2020 text/html ROS as noted in the HPI Here to follow up on knee pain, back pain. Imaging revealed no acute abnormalities, just degenerative changes. Had PT today. Will have PT for a month. Tylenol helps some with the pain. Today did some work in her house and by the time she got to therapy she had pain. Takes 500 mg once daily prn. Had covid booster last Wed. and has felt off since taking that. Denies CP, dyspnea, fevers, chills, abdominal pain, n/v/d, constipation, hematuria, melena, numbness/tingling. GOMEZ ALEMAN MD Attn: Accounting[address] [place], [address], [place] [facility] 11/20/2020 15:47:23 01/09/2021 text/html Left hand - has bump under her ring finger on palm of hand. Present for 2 months or so, just got painful in the last few weeks. Marisela Has had chronic back pain for years, was told she had several slipped dics in the past. This year seems to be worsening, having to use her walker/cane at times. Had XR of spine in 10/2020 and was told it was normal wear/tear and degenerative changes. Went to a course of PT but no relief. Hard for her to sit or lie down. Pain flares and takes days to go away. Tries muscle relaxant, alternating heat and cold, tylenol and ibuprofen as tolerated (tries to cut down on ibuprofen because of stomach issues). Has to sleep in a recliner. Told she had sciatica. Gets numbness/tingling from back into toes. L knee has hx of torn meniscus with repair. Has had stevens's cyst in the past in the L knee as well. Bending knees is the worst, trouble walking/going up stairs. TIFFANIE DHALIWAL MD Attn: Accounting[address] [facility], [place], [address], [place] [facility] 01/12/2021 22:53:58 02/25/2021 text/html ROS as noted in the HPI Here to follow up on knee pain and back pain. Was referred to sports med for knee pain. Had MRI for back pain, revealing multi-level spondylosis. Was referred to hand surgeon for neuroma. Is scheduled for excision. Patient has seen sports med and is going to be starting water aerobic therapy.Wants handicap placard renewed. Has had it for 10 years. Says for osteoarthritis, asthma, back pain. Patient endorses ringing in her ears off and on for a few weeks. Dizzy/lightheaded occasionally. Not positional. Happens randomly. Slight headache off and on. No trouble hearing. Doesn't feel like sinuses are blocked. Sometimes has rhinorrhea with the headache. Doesn't feel like the room is spinning. Denies CP, dyspnea, fevers, chills, abdominal pain, n/v/d, constipation, hematuria, melena, numbness/tingling. Diana Parish MD Attn: Accounting[address] [place], [address], [facility] 02/26/2021 09:35:06 08/16/2024 text/html ROS as noted in the HPI 69 year old female presents today with complaints of mild bilateral knee pain. Pain is worsened by activity. She denies recent trauma. She has history of TKA on the right. Andrew Gomez MD [address] [place], [address], [facility] 08/16/2024 12:06:19 OBGyn Episode No OBEpisode recorded.
--- OUTSIDE RECORDS SUMMARY | 2024-11-11 04:51 | XMS_ITS | Clinical Summary ---
Author Organization [facility] Address [address] [place] [address] Care Team Providers Care Medical Or Surgical Instrument Maker Name Role Phone Unavailable Primary Care Provider Unavailabl e Social History Tobacco Use Types Packs/Day Years Used Date Smoking Tobacco: Never Assessed Comments Unknown Sex and Gender Information Value Date Recorded Sex Assigned at Not on file Legal Sex Female 10:55 AM [employer]ILLING [employer] Gender Identity Not on file Sexual Orientation Not on file Plan of Treatment Health Maintenance Due Date Last Done Comments Hepatitis C Virus (HCV) Screening 1955 TdaP Immunization 1955 Cologuard 1998 Colonoscopy 1998 Colorectal Cancer Screening 1998 Immunochemical Fecal Occult Blood 1998 Pneumococcal Immunization (5 0+ years) (1 of 1 - PCV) 2003 Zoster Immunization (1 of 2) 2003 Influenza Immunization (#1) 2024 1003/2019, 12/13/2018 SARS-COV-2 Immunization ( - 2023- season) 2024 Respiratory Syncytial Virus (RSV) Immunization (Adult) (1 [...]
--- NOTE | 2024-11-11 04:58 | ECG_ITS ---
Test Date: 2024-11-11 05:06:43 Measurements Intervals [place] Rate: 77 P: 56 NM: 212 QRS: 10 QRSD: 100 T: 43 QT: 380 QTc: 430 Interpretive Statements SINUS RHYTHM WITH FIRST DEGREE AV BLOCK POSSIBLE LEFT ATRIAL ENLARGEMENT BORDERLINE ECG Compared to ECG 10/13/2024 00:19:27 No significant changes Electronically Signed On 11-11-2024 07:44:56 CDT by Junito Velez D.O.
[2024-11-11 05:20] LABS: Hematocrit 37.9 % (37.0-47.0); Hemoglobin 11.9 g/dL (12.0-15.0); Immature Granulocyte Percent A 0.4 % (0-0.5); Lymphocytes Absolute Auto 1.92 K/mm3 (0.9-3.2); Mean Corpuscular HGB Conc 31.4 g/dl (32-36); Mean Corpuscular Hemoglobin 28.5 pg (26-34); Mean Corpuscular Volume 90.7 fl (80-100); Nucleated Red Blood Cells Absolute Auto 0.000 K/mm3 (0.0-0.012); Nucleated Red Blood Cells Perc 0.0 % (0.0-0.2); Platelet Count Result 215 k/mm3 (150-375); Red Blood Count 4.18 M/mm3 (4.2-5.4); White Blood Count 5.4 K/mm3 (4.5-10.0)
--- NOTE | 2024-11-11 05:23 | ED.SOB ---
HPI - SOB/Dyspnea General Chief Complaint: Shortness of Breath/Dyspnea Stated Complaint: SOB x2 wks Time Seen by Provider: 11/11/24 05:17 Source: patient Mode of arrival: ambulatory Limitations: no limitations History of Present Illness HPI Narrative: Patient presents with report of shortness of breath. Was initially reported that this has been going on for 2 weeks however she states that it actually started on 10/09/2024 and she had initially been seen on prednisone and had been slightly improving only briefly. She recently went to an urgent care and had x-ray obtained was told this was negative for pneumonia. She has been on antibiotics since Wednesday. Also prescribed Tessalon Perles. She notes that her symptoms office start with an itchy throat. She notes that she has been on numerous qmfa-cwk-swmupeb medications including cough medicines (has gone through 3 bottles of Robitussin), Mucinex, and Zyrtec as well as her rescue inhaler. She states that her combination of shortness of breath, congestion, and cough are causing her to have difficulty sleeping. History of asthma. Her cough has been productive of frothy white sputum, occasionally yellow. No fevers or chills. She denies any lower extremity edema although felt like perhaps she had some swelling in her bilateral upper extremities a few days ago. She started developing chest pain but feels like it is more but tightness and chest pain is after forceful coughing. No previous DVT or PE. Patient states that she thought she noticed some trace possibly bloody sputum. She notes that it only happened once and has not occurred since and might have been due to a cough drop she had in her mouth at the time however cannot be certain. Related Data Home Medications ?Medication ?Instructions ?Recorded ?Confirmed ?Last Taken ?Type ascorbate calcium (vitamin C) 500 500 mg PO DAILY 05/28/20 08/18/24 Unknown History mg tablet cholecalciferol (vitamin D3) 25 25 mcg PO DAILY 05/28/20 08/18/24 Unknown History mcg (1,000 unit) capsule zinc acetate 50 mg (zinc) capsule 50 mg PO DAILY 05/28/20 08/18/24 Unknown History (Galzin) atorvastatin 10 mg tablet 10 mg PO DAILY 09/20/23 08/18/24 Unknown History calcium carbonate 500 mg PO DAILY 05/24/24 08/18/24 Unknown History lisinopril 30 mg tablet 30 mg PO DAILY 05/24/24 08/18/24 Unknown History zolpidem 5 mg tablet (Ambien) 5 mg PO QHS PRN 05/24/24 08/18/24 Unknown History famotidine 20 mg tablet (Pepcid) 20 mg PO BID 08/18/24 08/18/24 Unknown History Allergies Allergy/AdvReac Type Severity Reaction Status Date / Time tramadol Allergy Unknown itching Verified 08/18/24 08:55 PMFSH Past Medical History Medical History Esophageal stricture Abdominal pain History of colon polyps History of stomach ulcers Osteoporosis Arthritis Chronic GERD High cholesterol Vertigo Injury of left shoulder Left shoulder pain Colon polyps PUD (peptic ulcer disease) Hematuria Hypertension GERD (gastroesophageal reflux disease) Asthma Surgical History Surgical History History of breast biopsy History of surgical removal of meniscus of knee Not sure what knee History of foot surgery History of total hysterectomy 04/1999 History of dilation and curettage History of tubal ligation Family History Family History Grandparent Family history of malignant neoplasm of stomach Heart problem Asthma Father Malignant neoplasm of prostate Family history of malignant neoplasm of kidney Hypertension Sibling Asthma Family history of rheumatoid arthritis Thyroid disorder Heart problem Hypertension Mother Heart problem Thyroid disorder Other Family history of emphysema Social History Social History Smoking packs per day: 1 Smoking cigarettes per day: 20.0 Years smoked: 12 Smoking pack-years: 12.00 Smoking status: Former smoker Tobacco type: cigarettes Smoking end date: 02/09/96 Alcohol intake: current Substance use: never Living arrangements: with family Occupation/Education: retired Gender identity (if verbalized by the patient): Female Exam Narrative: GENERAL: Well-appearing, well-nourished, and in no acute distress. HEAD: Normocephalic, atraumatic. EYES: Non injected, non icteric ENT: Nares clear, no rhinorrhea or epistaxis. Gross auditory acuity intact. NECK: Supple. No meningismus. CHEST: Speaking in full sentences. No respiratory distress. Tight on auscultation with coarse rhonchi bilaterally; wheezes appreciated with forced expiratory cough. HEART: Regular rate and rhythm. . ABDOMEN: Soft, nondistended. EXTREMITIES: Normal range of motion. No bilateral lower extremity edema. SKIN: Warm, dry, no rash. NEURO: No focal deficits. Alert and oriented. Answering questions. Following commands. Normal speech without aphasia or dysarthria. PSYCH: Normal mood and affect. Course Vital Signs Vital signs: Vital Signs Temperature 98 F 11/11/24 05:00 Pulse Rate 79 11/11/24 05:00 Respiratory Rate 18 11/11/24 05:00 Blood Pressure 182/95 H 11/11/24 05:00 Pulse Oximetry 97 11/11/24 05:00 Oxygen Delivery Room Air 11/11/24 05:00 Temperature 98 F 11/11/24 05:00 Pulse Rate 67 11/11/24 06:42 Respiratory Rate 18 11/11/24 07:33 Blood Pressure 168/130 H 11/11/24 06:16 Pulse Oximetry 98 11/11/24 06:16 Oxygen Delivery Room Air 11/11/24 05:00 MDM - SOB/Dyspnea MDM Narrative Medical decision making narrative: Patient presents with cough, congestion, shortness of breath. Symptoms been going on since the 09 of October although there had been some improvement after course of steroids and then started recurring approximately 2 weeks ago. History of asthma. X-ray performed at Urgent Care recently was negative for pneumonia. Patient is currently on antibiotics and Tessalon Perles in using anuria out of foll-vmh-szramqk medications as well without relief. In the emergency department she is afebrile with vital signs notable for hypertension. YEARS Algorithm : No Clinical signs of DVT: No Hemoptysis: Possible/trace PE is most likely diagnosis: No D-dimer >1000ng/mL: No Given the questionable hemoptysis, will proceed with CT PE imaging. Troponin within normal limits. No leukocytosis. Normal renal function. Viral swab negative. Duoneb and magnesium ordered. Patient reassessed at 7:00 a.m. and continues to sound tight with coarse bilateral breath sounds though no areas of consolidation; mixed picture with wheezes. Solumedrol and additional albuterol treatment ordered. She is otherwise maintaining her oxygen saturation and is not in respiratory distress. It appears the patient was prescribed azithromycin 11/08/2024; noted that these are not typically indicated or necessary however she could continue to take them if desired. Similarly, she also has Alyssa Baker at home has not found them effective. She is prescribed Cepacol lozenges. Patient discharged with a refill of albuterol inhaler if needed and short course steroid. Also prescribed durable medical equipment prescription for a spacer. Given the fact that her symptoms are affecting her ability to sleep and that rest is important to healing, I also prescribed cough medicine that contains codeine. Patient had filled a zolpidem prescription but weighed the risks/benefits. Differential Diagnosis Differential diagnosis: Likely congestive heart failure, community acquired pneumonia, asthma with exacerbation, pulmonary embolism and other (Bronchitis, acute viral syndrome; ACS) Lab Data Attestation: I reviewed the patient's lab results. Lab results narrative: Urinalysis unremarkable 11/11/24 05:14 11/11/24 05:14 Labs: Lab Results 11/11/24 11/11/24 11/11/24 Range/Units 05:14 05:28 07:13 WBC 5.4 (4.5-10.0) K/mm3 RBC 4.18 L (4.2-5.4) M/mm3 Hgb 11.9 L (12.0-15.0) g/dL Hct 37.9 (37.0-47.0) % MCV 90.7 (80-100) fl MCH 28.5 (26-34) pg MCHC 31.4 L (32-36) g/dl RDW 13.6 (11.5-14.5) % Plt Count 215 (150-375) k/mm3 MPV 9.2 (7.4-10.4) fl Immature Gran % (Auto) 0.4 (0-0.5) % Neut % (Auto) 38.6 L (45.5-73.1) % Lymph % (Auto) 35.8 (18.3-44.2) % [place] % (Auto) 11.0 H (2.6-8.5) % Eos % (Auto) 13.8 H (0-4.4) % Baso % (Auto) 0.4 (0.2-1.2) % Lymph # (Auto) 1.92 (0.9-3.2) K/mm3 [place] # (Auto) 0.6 (0.1-0.6) K/mm3 Eos # (Auto) 0.7 H (0-0.3) K/mm3 Baso # (Auto) 0.0 (0.0-0.1) K/mm3 Abs Immat Gran (auto) 0.02 (0.00-0.031) K/mm3 Absolute Neuts (auto) 2.1 (1.3-6.7) K/mm3 Absolute Nucleated RBC 0.000 (0.0-0.012) K/mm3 Nucleated RBC % 0.0 (0.0-0.2) % D-Dimer 0.63 H (<0.48) ug/mL Sodium 140 (137-145) mmol/L Potassium 3.5 (3.4-5.0) mmol/L Chloride 103 (98-107) mmol/L Carbon Dioxide 29 (22-30) mmol/L Anion Gap 8 (4-12) mmol/L BUN 13 D (7-17) mg/dL Creatinine 0.64 L (0.7-1.0) mg/dL Estim Creat Clear Calc 75 ml/min Estimated GFR > 60 (59 - ) Glucose 113 H (65-110) mg/dL Calcium 9.0 (8.4-10.2) mg/dL Magnesium 2.0 (1.6-2.3) mg/dL Total Bilirubin 0.7 (0.2-1.3) mg/dL AST 41 H (14-36) U/L ALT 34 (6-35) U/L Alkaline Phosphatase 93 (38-126) U/L Troponin I < 0.012 (0.000-0.034) ng/mL NT-Pro-B Natriuret Pep 27 (19.9-100) pg/mL Total Protein 7.7 (6.3-8.2) g/dL Albumin 4.4 (3.5-5.1) g/dL Urine Color Yellow (Yellow) Urine Appearance Clear (Clear) Urine pH 7.0 (5.0-9.0) Ur Specific [place] 1.002 (1.001-1.035) Urine Protein Negative (Negative) mg/dL Urine Glucose (UA) Negative (Negative) mg/dL Urine Ketones Negative (Negative) mg/dL Ur Blood (Man) Negative (Negative) Urine Nitrate Negative (Negative) Urine Bilirubin Negative (Negative) Urine Urobilinogen 0.2 (<2.0) mg/dL Leukocyte Esterase Rfl Negative (Negative) SANA/UL Influenza A (RT-PCR) Negative (Negative) Influenza B (RT-PCR) Negative (Negative) RSV (RT-PCR) Negative (Negative) SARS-CoV-2 RNA (RT-PCR) Negative (Negative) Imaging Data Attestation: I personally reviewed and interpreted this imaging study as follows: My impression: Left greater than right haziness on my independent interpretation of chest x-ray however no raysa lobar distribution and I suspect mild degree of rotation rather than raysa pathology Radiologist's impression: Impressions Chest CTA 11/11/24 07:03 IMPRESSION: 1. No PE. 2. Scattered bronchial mucus plugging. Chest X-Ray 11/11/24 07:10 IMPRESSION: 1. No acute cardiopulmonary findings given portable technique. ECG Data EKG #1: Attestation: I personally reviewed and interpreted this ECG as follows: ECG completion date: 11/11/24 ECG completion time: 05:06 Prior ECG tracings: available for review (10/13/24: first degree AV block present but not the LVH) Interpretation: Normal sinus rhythm at a rate of 77 beats per minute. MT interval is prolonged at 212 milliseconds consistent with a first-degree AV block. QRS 100 milliseconds. QT/QTC 380/411. Left ventricular hypertrophy : S wave depth in V1 + tallest R wave height in V5-6 is >35mm and R wave in lead I + S wave in lead III is >25mm. Discharge Plan Discharge Clinical Impression: First degree atrioventricular block by electrocardiogram, Left ventricular hypertrophy by electrocardiogram, Asthma exacerbation, Bronchitis, Shortness of breath Patient Disposition: Home Condition: Stable Instructions: Antibiotic Form, Asthma (DC), Acute Bronchitis (ED), Dyspnea (ED), Shortness of Breath (ED) Additional Instructions: No evidence of a pneumonia on your CT scan and there was no evidence of a blood clot in your lungs either. For the asthma exacerbation, continue to use your albuterol inhaler. If you need a refill 1 has been prescribed. You received your first dose of steroid IV; the rest of the oral course has been prescribed. Take this starting tomorrow, before 9am if possible. The lozenges may help. You can continue to use the Tessalon Perles that you have if desired. The bronchitis you are experiencing is typically viral (although you tested negative for covid, influenza A, influenza B, and RSV) so usually antibiotics are not necessary however you can continue to take the ones you were recently prescribed if desired. Given the fact that the symptoms are affecting your sleep, the prescribed cough medicine contains codeine which may help you rest at night. Follow-up with your primary care physician. If you do not have 1 the name of the doctors listed below. Return to the emergency department any new, worsening symptoms. Patient Language: Indian Prescriptions: New albuterol sulfate [Ventolin HFA] 90 mcg/actuation HFA aerosol inhaler 1 inh inhalation QID PRN (Reason: shortness of breath or wheezing) Qty: 6.7 0RF (DME) BreatheRite MDI Spacer Spacer See Rx Instructions .Route Qty: 1 0RF Rx Instructions: As directed Cepacol Sore Throat-Cough 5-7.5 mg lozenge 1 nargis PO Q4H PRN (Reason: cough) Qty: 16 0RF prednisone 20 mg tablet 40 mg PO DAILY 5 Days Qty: 10 0RF Rx Instructions: starting 11/12 (received first dose in ED 11/11); take before 9am if possible codeine-guaifenesin 10-100 mg/5 mL liquid 10 ml PO Q4-6H PRN (Reason: cough) Qty: 120 0RF No Action famotidine [Pepcid] 20 mg tablet 20 mg PO BID ascorbate calcium (vitamin C) 500 mg tablet 500 mg PO DAILY cholecalciferol (vitamin D3) 25 mcg (1,000 unit) capsule 25 mcg PO DAILY Galzin 50 mg (zinc) capsule 50 mg PO DAILY atorvastatin 10 mg tablet 10 mg PO DAILY lisinopril 30 mg tablet 30 mg PO DAILY zolpidem [Ambien] 5 mg tablet 5 mg PO QHS PRN calcium carbonate 500 mg calcium (1,250 mg) tablet 500 mg PO DAILY methylprednisolone [Medrol (Kulwinder)] 4 mg tablets,dose pack See Rx Instructions .ROUTE .COMPLEX Qty: 21 0RF Rx Instructions: for 6 days albuterol sulfate [ProAir HFA] 90 mcg/actuation HFA aerosol inhaler 1 inh INHALATION Q4-6H PRN (Reason: shortness of breath or wheezing) Qty: 18 1RF Follow-up/Referrals: Madonna Nichols DO [Physician, Family Practice] UNKNOWN,DOCTOR [Primary Care Provider] Stand Alone Forms: Work/School Release IP Time of Disposition: 07:24
--- OUTSIDE RECORDS SUMMARY | 2024-11-11 05:44 | XMS_ITS | Encounter Summary ---
Author Organization [facility] Address [address] [place] [address] Care Team Providers Care Glass Wool Blanket Machine Feeder Name Role Phone JonathanLaurence Dottie CABA Primary Care Provider Nisha Borrego MD Primary Care Provider + Encounter Details Date Type Department Care Team (Latest Contact Info) Description 09/25/2024 MyChart Message Enc [facility] Family Medicine - [place] [address] [place] [address] Nisha Castro MD [address] [place], [place] [id number] Prescription refills Social History Tobacco Use Types [...] Sex Assigned at Female 02/22/2024 11:05 AM INDUSTRIAL CLEANER Legal Sex Female 8:04 PM CDT Gender Identity Female 02/04/2021 10:02 AM INDUSTRIAL CLEANER Sexual Orientation Not on file documented as of this encounter Plan of Treatment Upcoming Encounters Date Type Department Care Team (Late st Contact Info) Description 01/09/2025 8:10 AM INDUSTRIAL CLEANER Office Visit [facility] Family Medicine - [place] [address] [place], [place] [address] Nisha Castro MD [address] [place] [address] documented as of this encounter Visit Diagnoses Not on filedocumented in this encounter Additional Health Concerns Assessment Noted Time PHQ-9 Depression Total Score: 0 03/03/19 9:05 AM INDUSTRIAL CLEANER documented as of this encounter Care Teams Glass Wool Blanket Machine Feeder Relationship Specialty Start Date End Date Laurence Castillo DO PCP - General FAMILY PRACTICE 02/22/24 10/01/24 Nisha Castro MD [address] [place] [address] PCP - General FAMILY PRACTICE 10/02/24 documented as of this encounter
--- OUTSIDE RECORDS SUMMARY | 2024-11-11 05:44 | XMS_ITS | Clinical Summary ---
Author Organization [facility] [employer] Address [address] [place] [address] Care Team Providers Care Boiler Tenders Supervisor Name Role Phone Araceli Shane MD Unavailable Marcie Pizano APRN-[facility] Primary Care Provider [phone] Source Comments [facility],non-owned Affiliates and Associated Physician Practices is amultiple site organization consisting of ambulatory clinics and hospital sitesin [place], [place], [place] and [place]. This disclosure is being madepursuant to the Care Everywhere program and may not contain all information available regarding this patient. Last updated 17.[facility] Allergies No known active allergies Medications [...] fluticasone propionate (Flonase) 50 MCG/ACT nasal spray [place] 1 (one) spray into the nose every [...] chest pain and negative thallium stress at [facility] in [place]. 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 Gender Identity Not on file Sexual Orientation [...] Fuchs APRN-[employer] Medical [employer] Implanted Type Area Tearer Press Clipping Device Identifier Shelf Expiration Date Model / Serial / Lot Screw 2.4mm 16mm P/T Lag Kendrick Slfret Implanted:Qty: 2 on 02/17/2019 by Erin Morris DPM at [facility] Right: Foot Osteomed Thiago [id number] / / Impl Fx 14.9ata6pe 4.5-3mm Phalinx 0d 6 Implanted:Qty: 1 on 02/17/2019 by Erin Morris DPM at [facility] Right: Foot [employer] [id number] / / Wire Phalinx K 1.1mm Hmrtoe Fx Med Implanted:Qty: 1 on 02/17/2019 by Erin Morris DPM at [facility] Right: Foot [employer] [id number] / / Wire K Phalinx .9mm Fx Xs Sm Implanted:Qty: 1 on 02/17/2019 by Erin Morris DPM at [facility] Right: Foot [employer] [id number] / / Phalinx Extra Small Implant Implanted:Qty: 1 on 02/17/2019 by Erin Morris DPM at [facility] Right: Foot [employer] [id number] / / Explanted Type Area Tearer Press Clipping Device Identifier Shelf Expiration Date Model / Serial / Lot Smooth K-Wire Osteomed Explanted:Qty: 4 on 02/17/2019 at [facility] Right: Foot [id number] / / Procedures Procedure Name Priority Date/Time [...] Resulting Agency Comment [facility] [address] [id number] [place] Antoni Jensen MD LAB - CHEMISTRY ORDERABLES Final Result [facility] INSURANCE BILL [address] [place] [address] * (ABNORMAL) COMPREHENSIVE METABOLIC PANEL (06/10/2021 11:34 AM CDT) Pathologist [facility] [place] Glucose 95 70 - 105 mg/dL [facility] [...] Resulting Agency Comment Lab Testing performed at: [address] [place] [id number] Jesica Hernández MD LAB - CHEMISTRY ORDERABLES Fin al Result [facility] ACCOUNT BILL [address] [place] [address] * ENDOSCOPY, COLON, SCREENING (09/07/2018 7:30 AM [...] by the physician, the nurse and the bale coverer in the procedure room. Mental Status Examination: [...] the patient. Procedure Code(s): --- Professional --- 90265, Colonoscopy, flexible; with biopsy, single or multiple --- Technical --- 19086, Colonoscopy, flexible; with biopsy, single or multiple [...] malignant neoplasm of colon CPT copyright 2017 [employer]. All rights reserved. The codes documented in this report are preliminary and upon real estate appraiser supervisor review may be revised to meet current compliance requirements. Dr. Stevie Caban MD Stevie Caban MD 09/07/2018 8:20:10 AM This report has been signed electronically. Number of Addenda: 0 Note Initiated On: 09/07/2018 7:30 AM [facility] ENDOSCOPY 09/07/2018 7:30 AM CDT us Stevie Caban MD GI PROCEDURE ORDERABLES Chuck brigitte Result - Final [facility] ENDOSCOPY [place] [id number] * DEXA BONE DENSITY AXIAL SKELETON (06/16/2018 [...] Insurance [employer] MANAGED MEDICARE ADV Care Teams Boiler Tenders Supervisor Relationship Specialty Start Date End Date Marcie Pizano, WELL DRILL OPERATOR CABLE TOOL-PROCESS MANAGER [address] [place] [address] PCP - General Nurse Practitioner Family 09/01/23 Araceli Shane MD Rheumatology 01/27/19
--- OUTSIDE RECORDS SUMMARY | 2024-11-11 05:44 | XMS_ITS | Clinical Summary ---
Author Organization [facility] Address [address] [place] [address] Care Team Providers Care Patient Observation Assistant Name Role Phone Nisha Castro MD Primary [...] started experiencing rash after [facility], [facility]. She reports she [...] a sunburn when she was living in [place] that did not heal for several months. [...] take Tylenol and ibuprofen. Seronegative rheumatoid arthritis ([facility] H[facility]H CC) 03/03/2024 Overview (04/18/2024): Initial visit [...] pharmacy. Additional prescriptions to be obtained through breaker tender. Assessment & Plan (03/03/2024 7:34 PM RADIO TIME BUYER): She is to continue current medication and is instructed to make follow-up appointment with breaker tender. She reports she is following with ophthalmology. Status post total right knee replacement 025 Overview (03/03/2024): Initial visit 03/03/2024: Reports she had surgery in June 2022 through [facility] in [place]. Depression screening negative 03/03/2024 Overview (03/03/2024): PHQ-2 [...] all Assessment & Plan (03/03/2024 7:12 PM RADIO TIME BUYER): Depression screening negative. This was discussed with patient in person at appointment and she denied having any questions or concerns. Cigarette nicotine dependence in remission 03/03 Overview (03/03/2024): Initial visit 03/03/2024: She reports she smoked approximately 1 pack/day of cigarettes for approximately 20 years and stopped smoking 28 years ago. Assessment & Plan (03/03/2024 7:14 PM RADIO TIME BUYER): She does not qualify for lung cancer [...] cold Assessment & Plan (03/03/2024 7:25 PM RADIO TIME BUYER): TSH ordered to evaluate thyroid function and [...] laser. Assessment & Plan (03/03/2024 7:19 PM RADIO TIME BUYER): Is to continue following with ophthalmology especially in the setting of her hydroxychloroquine use. History of peptic ulcer 03/03/2024 Overview (03/03/2024): Initial visit 03/03/2024: She reports she was diagnosed via endoscopy by boat dock operator with 3 stomach ulcers and started on treatment. See under GERD. History of abnormal mammogram 03/03/2024 Overview (03/03/2024): Initial visit 03/03/2024: She reports she gets regular mammograms. She reports she has had an abnormal mammogram and right breast and left breast at separate times and had lumpectomies in both breast and follow-up mammograms were normal. Assessment & Plan (03/03/2024 7:21 PM RADIO TIME BUYER): Need to obtain records of previous mammograms including most recent Status post total hysterectomy 03/03/2024 Overview (03/03/2024): Initial visit 03/03/2024: She reports she had total hysterectomy including removal of her ovaries when she was in her 50s. Other neutropenia 03/03/2024 Overview (03/03/2024): Initial visit 03/03/2024: Noted incidentally on CBC. Mild neutropenia. Assessment & Plan (03/21/2024 9:28 AM RADIO TIME BUYER): Discussed mild neutropenia with patient. I would like to repeat CBC however currently patient is feeling somewhat under the weather so we will wait. She is encouraged to make appointment with rheumatology as she is to follow-up regarding hydroxychloroquine. Assessment & Plan (03/03/2024 7:28 PM RADIO TIME BUYER): Mild neutropenia. We can repeat to confirm. [...] MG/DL Assessment & Plan (03/03/2024 7:13 PM RADIO TIME BUYER): Lipid panel returned within normal limits. Patient [...] ordered. Assessment & Plan (03/03/2024 7:17 PM RADIO TIME BUYER): She did not request refill at this [...] colonoscopy. Assessment & Plan (03/03/2024 7:05 PM RADIO TIME BUYER): No pathology is available at this time so we will need to request. Esophageal stricture 02/05/2017 Osteopenia of multiple sites 04/04/2008 Overview (03/03/2024): Initial visit 03/03/2024: Patient brought in copy of previous DEXA scan from 12/08/2022 which showed osteopenia. Assessment & Plan (03/03/2024 7:04 PM RADIO TIME BUYER): Continue current calcium and vitamin D3 supplementation at this time. Mild intermittent asthma without complication (H HS/HCC) 04/04/2008 Overview (03/03/2024): Initial visit 03/03/2024: She reports she was diagnosed with asthma years ago and has very few times when asthma gives her any trouble. She reports when she moved to [place] she lost 20 pounds reports she has not had issues since up recently within the last week or so that she thinks is related to cold weather and she had a little bit of shortness of breath and coughing. She reports she does not currently have albuterol rescue inhaler. Assessment & Plan (03/03/2024 7:15 PM RADIO TIME BUYER): Based on patient's description, asthma is mild [...] daily. Assessment & Plan (03/21/2024 9:27 AM RADIO TIME BUYER): Discussed with patient that in the setting [...] pressure. Assessment & Plan (03/03/2024 7:24 PM RADIO TIME BUYER): Blood pressure is elevated in office today. [...] GI Dr. Craft with [facility] in [facility]. Assessment & Plan (06/19/2024 8:14 AM CDT): Counseled patient on avoiding foods that can exacerbate reflux. She can take Pepcid 20 mg up to twice daily as needed for reflux. Assessment & Plan (03/03/2024 7:09 PM RADIO TIME BUYER): Discussed with patient the patient long-term sequelae [...] tea. 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 If she acutely [...] Group Image (SCAN) 10/13/2024 MyChart Message Enc [facility] Family Medicine - [place] [id number] [place] [address] Nisha Castro MD ER visit 09/25/2024 MyChart Message Enc [facility] Family Medicine - [place] [address] [place] [address] Nisha Castro MD Prescription refills 09/25/2024 Telephone [facility] Multispecialty Care - [place] [address] [place] [address] Laurence Castillo, DO Refill Request 08/18/2024 Scan [facility] INFO SRVCS Scanned, Doc Med Group 08/16/2024 10:10 AM CDT - 08/16/2024 11:59 PM CDT Hospital Encounter [facility] Diagnostic Imaging [address] [place] [address] [place] MD Discharge Disposition: Home or [...] Sex Assigned at Female 02/22/2024 11:05 AM RADIO TIME BUYER Legal Sex Female 8:04 PM CDT Gender Identity Female 02/04/2021 10:02 AM RADIO TIME BUYER Sexual Orientation Not on file Last Filed [...] st Contact Info) Description 01/09/2025 8:10 AM RADIO TIME BUYER Office Visit [facility] Family Medicine - [place] [address] [facility] [address] [place] [address] Nisha Castro MD [address] [place] [phone] Health Maintenance Due Date Last Done Comments [...] of not completing the topic PHQ-2 (Physician [place]) Completed 03/03/2024 Meningococcal B Vaccine Aged Out [...] MICHELLE MARSHALL DIGI Routine 03/30/2024 9:13 AM RADIO TIME BUYER Screening mammogram for breast cancer BONE DENSITY [...] 5:02 PM Narrative 08/16/2024 5:04 PM CDT [place] [address] Examination: Right knee 3 views Exam Date/Time: [...] Charly Woo MD - 08/16/2024 [place] [address] Examination: Right knee 3 views Exam Date/Time: [...] 5:22 PM Narrative 08/16/2024 5:23 PM CDT [facility] [place] [address] Examination: XR KNEE LT 3V Exam time: [...] Procedure Note Leland Calloway MD - 08/16/2024 [facility] [place] [address] Examination: XR KNEE LT 3V Exam time: [...] W MICHELLE MARSHALL DIGI (03/30/2024 9:13 AM RADIO TIME BUYER) Anatomical Region Laterality Modality Breast Bilateral Mammography 04/04/2024 11:5 5 AM RADIO TIME BUYER Impressions 04/04/2024 11:57 AM RADIO TIME BUYER IMPRESSION: No significant interval change. No mammographic evidence of malignancy. RECOMMENDATION: Routine ScreeningBilateral OVERALL IMAGING ASSESSMENT: ACR BI-RADS 2 - BENIGN FINDING(S). Ordered By: LAURENCE CASTILLO Interpreted By: Mich Becker, 04/04/2024 11:55 AM Narrative 04/04/2024 11:57 AM RADIO TIME BUYER [address] [address] EXAMINATION: MG SCREENING W MICHELLE [...] Health Maintenance Insurance 2018 [address] [place] [id number] [facility] MEDICARE Care Teams Patient Observation Assistant Relationship Specialty Start Date End Date Nisha Castro MD [address] [place] [phone] PCP - General FAMILY PRACTICE 10/02/24
--- OUTSIDE RECORDS SUMMARY | 2024-11-11 05:44 | XMS_ITS | Encounter Summary ---
Author Organization [facility] Address [address] [place] [address] Care Team Providers Care Ophthalmic Technologist Name Role Phone Nisha Castro MD Primary Care Provider + Encounter Details Date Type Department Care Team (Late st Contact Info) Description 10/13/2024 PlayRavent Message Enc [facility] Family Medicine - [place] [address] [place] [address] Nisha Castro MD [address] [place] [phone] ER visit Social History Tobacco Use [...] Sex Assigned at Female 02/22/2024 11:05 AM AUTO TRANSMISSION SPECIALIST Legal Sex Female 8:04 PM CDT Gender Identity Female 02/04/2021 10:02 AM AUTO TRANSMISSION SPECIALIST Sexual Orientation Not on file documented as [...] st Contact Info) Description 01/09/2025 8:10 AM AUTO TRANSMISSION SPECIALIST Office Visit [facility] Family Medicine - [place] [address] [place], [place] [phone] Nisha Castro MD [address] [place] [address] documented as of this encounter Visit Diagnoses Not on filedocumented in this encounter Additional Health Concerns Assessment Noted Time PHQ-9 Depression Total Score: 0 03/03/19 9:05 AM AUTO TRANSMISSION SPECIALIST documented as of this encounter Care Teams Ophthalmic Technologist Relationship Specialty Start Date End Date Nisha Castro MD [address] [place], [place] [phone] PCP - General FAMILY PRACTICE 10/02/24 documented as of this encounter
--- OUTSIDE RECORDS SUMMARY | 2024-11-11 05:44 | XMS_ITS | Encounter Summary ---
Author Organization [facility] Healthcare Address [address] [place] [address] Care Team Providers Care Loin Trimmer Name Role Phone Mary Garnica MD Primary Care Provi reshma Encounter Details Date Type Department Care Team (Late st Contact Info) Description 11/09/2024 Results Follow-Up [facility] Medical Group Convenient Care at [address] [phone] Laura Lacey NP [address] [place] [address] XR Chest PA Lateral 2 Views Social History Tobacco Use Types Packs/Day Years Used Date Smoking Tobacco: Former Cigarettes Q uit: 1995 Comments Unknown Sex and Gender Information Value Date Recorded Sex Assigned at Not on file Legal Sex Female 3:46 PM PATROL COMMUNITY SERVICE OFFICER Gender Identity Female 03/10/2021 6:25 AM PATROL COMMUNITY SERVICE OFFICER Sexual Orientation Not on file documented as of this encounter Plan of Treatment Not on file documented as of this encounter Visit Diagnoses Not on filedocumented in this encounter Care Teams Loin Trimmer Relationship Specialty Start Date End Date Mary Garnica MD PCP - General 05/24/20 documented as of this encounter
--- OUTSIDE RECORDS SUMMARY | 2024-11-11 05:44 | XMS_ITS | Encounter Summary ---
Author Organization [facility] Address [address] [place] [address] Care Team Providers Care Consultant Education Name Role Phone Laurence Castillo DO Primary Care Provider Nisha Borrego MD Primary Care Provider + Encounter Details Date Type Department Care Team (Late Contact Info) Description 04/10/2024 MyChart Message Enc [facility] Multispecialty Care - [address] [place] [address] Laurence Castillo DO Coughing Social [...] Sex Assigned at Female 02/22/2024 11:05 AM EMERGENCY ROOM TECH Legal Sex Female 8:04 PM CDT Gender Identity Female 02/04/2021 10:02 AM EMERGENCY ROOM TECH Sexual Orientation Not on file documented as of this encounter Plan of Treatment Upcoming Encounters Date Type Department Care Team (Late Contact Info) Description 01/09/2025 8:10 AM EMERGENCY ROOM TECH Office Visit [facility] Family Medicine - [place] [address] [place], [place] [address] Nisha Castro MD [address] [place], [place] [phone] documented as of this encounter Visit Diagnoses Not on filedocumented in this encounter Additional Health Concerns Assessment Noted Time PHQ-9 Depression Total Score: 0 03/03/19 9:05 AM EMERGENCY ROOM TECH documented as of this encounter Care Teams Consultant Education Relationship Specialty Start Date End Date Laurence Castillo DO PCP - General FAMILY PRACTICE 02/22/24 10/01/24 Nisha Castro MD [address] [place], [place] [phone] PCP - General FAMILY PRACTICE 10/02/24 documented as of this encounter
--- OUTSIDE RECORDS SUMMARY | 2024-11-11 05:44 | XMS_ITS | Encounter Summary ---
Author Organization [facility] Address [address] [place] [address] Care Team Providers Care Rivet Thrower Name Role Phone Laurence Castillo DO Primary Care Provider Nisha Borrego MD Primary Care Provider + Encounter Details Date Type Department Care Team (Late st Contact Info) Description 04/06/2024 MyChart Message Enc [facility] Multispecialty Care - [address] [place] [address] Laurence Castillo, Referral Social History [...] Sex Assigned at Female 02/22/2024 11:05 AM RIP MACHINE OPERATOR Legal Sex Female 8:04 PM CDT Gender Identity Female 02/04/2021 10:02 AM RIP MACHINE OPERATOR Sexual Orientation Not on file documented as of this encounter Plan of Treatment Upcoming Encounters Date Type Department Care Team (Late st Contact Info) Description 01/09/2025 8:10 AM RIP MACHINE OPERATOR Office Visit [facility] Family Medicine - [place] [address] [place] [address] Nisha Castro MD [address] [place], [place] [phone] documented as of this encounter Visit Diagnoses Not on filedocumented in this encounter Additional Health Concerns Assessment Noted Time PHQ-9 Depression Total Score: 0 03/03/19 9:05 AM RIP MACHINE OPERATOR documented as of this encounter Care Teams Rivet Thrower Relationship Specialty Start Date End Date Laurence Castillo DO PCP - General FAMILY PRACTICE 02/22/24 10/01/24 Nisha Castro MD [address] [place], [place] [phone] PCP - General FAMILY PRACTICE 10/02/24 documented as of this encounter
--- OUTSIDE RECORDS SUMMARY | 2024-11-11 05:44 | XMS_ITS | Clinical Summary ---
Author Organization [facility] Address [address] [place] [address] Care Team Providers Care Chip Crusher Operator Name Role Phone Unavailable Primary Care Provider Unavailabl e Social History Tobacco Use Types Packs/Day Years Used Date Smoking Tobacco: Never Assessed Comments Unknown Sex and Gender Information Value Date Recorded Sex Assigned at Not on file Legal Sex Female 10:55 AM AFTERNOON BABYSITTER Gender Identity Not on file Sexual Orientation [...]
--- OUTSIDE RECORDS SUMMARY | 2024-11-11 05:44 | XMS_ITS | Clinical Summary ---
Author Organization [facility] Address [address] [place] [address] Care Team Providers Care Magnet Placer Name Role Phone Mary Garnica MD Primary [...] Department Care Team Description 11/09/2024 Results Follow-Up [facility] Convenient Care at [address] [address] Laura Lacey NP XR Chest PA Lateral 2 Views 11/08/2024 4:00 PM CDT Ancillary Procedure [facility] Group Imaging at [address] [phone] Acute cough 11/08/2024 3:30 PM CDT Office Visit [facility] Convenient Care at [address] [phone] Ursula Amaya NP Subacute cough (Primary Dx); Exacerbation of asthma, unspecified asthma severity, unspecified whether persistent 10/25/2024 7:00 PM CDT Office Visit [facility] Convenient Care at [address] [phone] Ursula Amaya NP Physical exam, pre-employment (Primary [...] on file Legal Sex Female 3:46 PM ELECTRICIAN MAINTENANCE Gender Identity Female 03/10/2021 6:25 AM ELECTRICIAN MAINTENANCE Sexual Orientation Not on file Obstetrics History [...] Jodi Murphy M.D. SN T: Report ID: [id number] Reading Location: [id number] Procedure Note Jodi Murphy MD - 11/09/2024 [...] Jodi Murphy M.D. SN T: Report ID: [id number] Reading Location: [place] [address] Ursula Amaya DUCT MAKER IMG XR PROCEDURES Final Result from Last 3 Months Insurance [address] [place] [id number] [facility] MEDICARE ADVANTAGE [address] [place] [id number] Care Teams Magnet Placer Relationship Specialty Start Date End Date Mary Garnica MD PCP - General 05/24/20
[2024-11-11 05:46] LABS: Alanine Aminotransferase 34 U/L (6-35); Albumin Level 4.4 g/dL (3.5-5.1); Alkaline Phosphatase 93 U/L (38-126); Anion Gap 8 mmol/L (4-12); Aspartate Amino Transferase 41 U/L (14-36); Bilirubin,Total 0.7 mg/dL (0.2-1.3); Blood Urea Nitrogen 13 mg/dL (7-17); Calcium 9.0 mg/dL (8.4-10.2); Carbon Dioxide 29 mmol/L (22-30); Chloride 103 mmol/L (98-107); Estimated CRCL calculation 75 ml/min; Estimated Glomerular Filt Rate > 60; Glucose 113 mg/dL (65-110); Potassium 3.5 mmol/L (3.4-5.0); Sodium 140 mmol/L (137-145); Total Protein 7.7 g/dL (6.3-8.2)
[2024-11-11 05:53] LABS: NT Pro B Type Natriuretic Pept 27 pg/mL (19.9-100); Troponin I < 0.012 ng/mL (0.000-0.034)
[2024-11-11 06:10] LABS: Influenza A QL RT-PCR Negative (Negative); Influenza B QL RT-PCR Negative (Negative); RSV RNA, RT-PCR Negative (Negative); SARS-CoV-2 RNA PCR Negative (Negative)
[2024-11-11] MEDS: IPRATROPIUM 0.5 MG/ALBUTEROL SULFATE 2.5 MG (BASE) AMPUL.NEB 3 ML INHALATION (06:32)
[2024-11-11 06:51] LABS: Magnesium 2.0 mg/dL (1.6-2.3)
[2024-11-11] MEDS: MAGNESIUM SULF 1 GM/D5W 100 ML 1 GM/100 ML BAG IVPB (07:04)
[2024-11-11] MEDS: ALBUTEROL SULFATE NEB 2.5 MG/3 ML INH INHALATION (07:20)
[2024-11-11 07:21] LABS: Add Urine Microscopic? NO; Appearance Urine Clear (Clear); Glucose Urine UA Negative (Negative); Leukocyte Esterase Ur Negative LEU/UL (Negative); Nitrate Urine Negative (Negative); Specific Grav Ur 1.002 (1.001-1.035)
== END 2024-11-11 08:24 | disposition home or self-care (01) ==
PROVIDERS: Emergency Provider Student in an Organized Health Care Education/Training Program
DX: J45.901 Unspecified asthma with (acute) exacerbation (principal); I51.7 Cardiomegaly; I44.0 Atrioventricular block, first degree; Z20.822 Contact with and (suspected) exposure to COVID-19; I10 Essential (primary) hypertension; E78.00 Pure hypercholesterolemia, unspecified; K21.9 Gastro-esophageal reflux disease without esophagitis; M81.0 Age-related osteoporosis without current pathological fracture; M19.90 Unspecified osteoarthritis, unspecified site; Z87.11 Personal history of peptic ulcer disease; Z86.0100 Personal history of colon polyps, unspecified; Z87.891 Personal history of nicotine dependence; Z90.710 Acquired absence of both cervix and uterus
CPT/HCPCS: 36415; 71045; 71275; 80053; 81003; 83735; 83880; 84484; 85025; 85380; 87637; 93005; 94640; 96365; 96375; 99284; J2919; J3475; Q9967